=== PATIENT | female | born 1960 | race Caucasian/White ===

== ENCOUNTER → 2020-05-31 12:40 | Outpatient (REF) | payer BC, SELFPAY ==
--- NOTE | 2020-05-31 13:00 | CA_ITS ---
Transthoracic Echocardiogram Patient (Last, First, Middle): Mercy Brush, Gender: Female Date of : 1960 Age: 60 Procedure Date: 05/31/2020 Procedure Type: Transthoracic Echocardiogram Location: OP Height: 177.8 cm Weight: 79.38 kg BSA: 1.97 m2 Heart Rate: bpm BP: 138 / 86 mmHg Green End Worker: MANE Referring MD: Mehdi Hirsch MD Symptoms: [id number] paroxysmal atrial fibrillation, 110. hypertension Study Quality: Fair ECG Rhythm: Sinus Conclusions: - The left ventricular systolic function is normal. The visually estimated ejection fraction is between 60-65%. - There is mild mitral valve regurgitation. - There is mild tricuspid valve regurgitation. Findings Left Ventricle Normal left ventricular cavity size. There is normal left ventricular wall thickness. The left ventricular systolic function is normal. The visually estimated ejection fraction is between 60-65%. There is no evidence of regional wall motion abnormalities. Diastolic function is normal for age. Right Ventricle Normal right ventricular cavity size and systolic function. Atria The left atrium is normal in size. The right atrium is normal in size. Aortic Valve There is a normal trileaflet aortic valve. There is no aortic valve stenosis. There is trace (trivial) aortic valve regurgitation. Mitral Valve The mitral valve appears normal. There is mild mitral valve regurgitation. There is no mitral valve stenosis. Pulmonic Valve The pulmonic valve was not well visualized. Tricuspid Valve Normal tricuspid valve structure. There is mild tricuspid valve regurgitation. The pulmonary artery systolic pressure is normal. Great Vessels The aortic annulus, sinuses of valsalva, asc aorta, and aortic arch are normal in size. Venous The inferior vena cava is normal in size and collapses greater than 50% with inspiration. Pericardium/Pleural There is no evidence of pericardial effusion. Prior Study Comparison No significant change compared to prior study dated: 01/28/2015. Measurements 2D Linear Measurements IVSd: 0.87 0.6-0.9/0.6-1.0 cm LVIDd: 5.60 3.9-5.3/4.2-5.9 cm LVIDd Index: 2.84 2.4-3.2/2.2-3.1 cm/m2 LVIDs: 3.50 2.0-3.6 cm LVPWd: 0.93 0.7-1.1 cm Ao Root: 2.80 2.1-3.5 cm LA Diam: 3.90 2.7-3.8/3.0-4.0 cm LAIDs Index: 1.98 1.5-2.3 cm/m2 LV Mass: 238.45 67-162/88-224 g LV Mass Index: 121.04 43-95/49-115 g/m2 LVOT Diam: 2.10 3.0+(-)1.3 cm 2D Systolic Function EF 4C: 69.70 >55% EF 2C: 61.20 >55% EF BiP: 65.80 >55% Mitral Valve MV Pk E: 0.74 MV PK A: 0.39 MV Decel Time: 167.00 E/A: 1.90 E'Lateral: 10.20 E'Medial: 8.22 E/E' Med: 9.00 E/E' Lat: 7.30 PHT: 49.00 MVA PHT: 4.49 Decel Crane: 4.44 MR VTI: 2.04 MR RAD: 0.40 Aortic Valve AoV Pk Lawrence: 1.18 AoV Pk Grad: 6.00 LVOT LVOT Pk Lawrence: 0.84 LVOT Mn Lawrence: 0.53 LVOT VTI: 0.18 LVOT Pk Grad: 3.00 LVOT Mn Grad: 1.00 LVOT Diam: 2.10 LVOT Area: 3.46 Diastolic Function MV Pk E: 0.74 MV Pk A: 0.39 E/A: 1.90 E'Medial: 8.22 E/E' Med: 9.00 E' Laterial: 10.20 E/E' Lat: 7.30 Tricuspid Valve TR Pk Lawrence: 2.25 TR Pk Grad: 20.00 RA Press: 3.00 RVSP: 23.00 Great Vessels Aorta Ao Root-2D: 2.80 2.0-3.7 cm Ao Asc: 3.40 2.1-3.4 cm Ao Arch: 2.90 Updated in Other Vendor System with Status of Final Edil Bowman MD electronically signed on 06/02/2020 5:11:54 PM with status of Final
== END ==
LOC: HO.CARD 12:40
PROVIDERS: PCP Internal Medicine; Visit Provider Internal Medicine Cardiovascular Disease
DX: I48.0 Paroxysmal atrial fibrillation (principal); I10 Essential (primary) hypertension
CPT/HCPCS: 93306

== ENCOUNTER 2020-08-17 09:57 | Outpatient (REF) | payer BC, SELFPAY | END 2020-08-17 09:58 | disposition home or self-care (01) | LOC: HO.LNP 09:57 | PROVIDERS: Visit Provider Internal Medicine | DX: Z20.828 Contact with and (suspected) exposure to other viral communicable diseases (principal) | CPT/HCPCS: U0003 ==

== ENCOUNTER 2021-05-18 14:41 | Outpatient (REF) | payer BC, SELFPAY | END 2021-05-18 14:42 | disposition home or self-care (01) | LOC: HO.LNP 14:41 | PROVIDERS: Visit Provider Internal Medicine | DX: Z12.4 Encounter for screening for malignant neoplasm of cervix (principal) | CPT/HCPCS: 88142 ==

== ENCOUNTER 2021-05-19 06:34 | Outpatient (REF) | payer BC, SELFPAY ==
[2021-05-19 07:49] LABS: MANUAL DIFF FLAG NO
[2021-05-19 08:00] LABS: Basophils Percent Auto 0.4 % (0-2); Eosinophils Absolute Auto 0.1 X10*3/uL (0.0-0.4); Eosinophils Percent Auto 1.2 % (0-4); Hematocrit 39.5 % (37-47); Hemoglobin 12.9 g/dl (12.0-16.0); Imm Gran Abs Auto 0.04 X10*3/uL (0.00-0.03); Imm Gran Pct Auto 0.5 % (0.0-0.4); Lymphocytes Absolute Auto 2.3 X10*3/uL (1.2-4.9); Mean Corpuscular HGB Conc 32.7 g/dl (31.0-35.0); Mean Corpuscular Hemoglobin 31.1 pg (27.0-33.0); Mean Corpuscular Volume 95.2 fL (80-98); Mean Platelet Volume 9.7 fL (9.4-12.3); Monocytes Absolute Auto 0.7 X10*3/uL (0.1-1.2); Monocytes Percent Auto 8.4 % (2-11); Neutrophils Absolute Auto 4.7 X10*3/uL (2.0-8.3); Neutrophils Percent Auto 60.5 % (45-73); Platelet Count 260 X10*3/uL (160-400); Red Blood Count 4.15 X10*6/uL (4.20-5.50); Red Cell Distribution Width 13.1 % (11.0-16.0); White Blood Count 7.8 X10*3/uL (4.8-10.8)
[2021-05-19 08:17] LABS: Alanine Aminotransferase 22 U/L (0-31); Albumin Level 4.3 g/dL (3.5-5.0); Alkaline Phosphatase 73 U/L (39-117); Anion Gap 13 (12-20); Aspartate Amino Transferase 26 U/L (5-31); Bilirubin Total 0.8 mg/dL (0.0-1.0); Blood Urea Nitrogen 20 mg/dL (9-16); Calcium 9.6 mg/dL (8.4-10.2); Carbon Dioxide 26 mmol/L (22-29); Chloride 102 mmol/L (96-108); Cholesterol 223 mg/dL; Estimated Glomerular Filt Rate 58; Glucose Fasting 81 mg/dL (60-99); HDL Cholesterol 67 mg/dL; LDL Cholesterol Calculated 136 mg/dl; Potassium 4.3 mmol/L (3.3-5.1); Sodium 137 mmol/L (135-145); Total Protein 7.5 g/dL (6.5-8.0); Triglycerides 102 mg/dL
[2021-05-19 08:41] LABS: Vitamin D 25-OH Total 55.4 ng/mL (>30)
[2021-05-19 09:04] LABS: Appearance Urine CLEAR; Color Urine YELLOW; Glucose Urine UA NEG (NEG); Leukocyte Esterase Urine 3+ (NEG); Nitrite Urine NEG (NEG); Specific Gravity - Urine <= 1.005 (1.005-1.025); Urine Blood 1+ (NEG); Urine Ketones NEG (NEG); Urine Protein NEG (NEG-TRACE)
[2021-05-19 09:21] LABS: Squamous Epithelial Cell Urine 1+ /LPF
[2021-05-19 09:22] LABS: Bacteria Urine 1+ /LPF
== END 2021-05-19 06:35 | disposition home or self-care (01) ==
LOC: HO.LAB 06:34
PROVIDERS: PCP Internal Medicine; Visit Provider Internal Medicine
DX: Z00.00 Encounter for general adult medical examination without abnormal findings (principal); I10 Essential (primary) hypertension; E78.00 Pure hypercholesterolemia, unspecified; Z78.0 Asymptomatic menopausal state
CPT/HCPCS: 36415; 80053; 80061; 81001; 81003; 82306; 85025

== ENCOUNTER 2021-06-02 07:57 | Outpatient (REF) | payer BC, SELFPAY ==
--- NOTE | ~2021-06-02 | MM_ITS ---
EXAMINATION: MM SCREENING DIGITAL BREAST TOMOSYNTHESIS, BILATERAL CLINICAL INFORMATION: Screening. Asymptomatic. The lifetime risk of breast cancer based on the Tyrer-Cuzick Model is 9%. COMPARISON: Mammography: 03/18/2020, 12/06/2018, 12/04/2017, 11/24/2016 TECHNIQUE: Digital breast tomosynthesis is performed in both the craniocaudal and mediolateral oblique views along with computer-aided detection (CAD). Synthesized 2D images are generated from the tomosynthesis. FINDINGS: There are scattered areas of fibroglandular density (ACR BI-RADS breast composition Category b). Breast tissue composition borders on heterogeneously dense. Parenchymal pattern is similar to prior studies. No developing density or interval mass or architectural abnormality. Again, there is biopsy clip marker right breast upper outer quadrant. There are no abnormal calcifications. The axilla and skin contours unremarkable. MM/MM tomosynthesis screening BI IMPRESSION: No significant changes from prior exams. ASSESSMENT: BI-RADS 1: Negative RECOMMENDATION: Routine annual mammography screening. This patient's information was entered into a reminder system with a target due date for their next mammogram.
== END 2021-06-02 07:58 | disposition home or self-care (01) ==
LOC: HO.MAMMO 07:57
PROVIDERS: Visit Provider Internal Medicine
DX: Z12.31 Encounter for screening mammogram for malignant neoplasm of breast (principal)
CPT/HCPCS: 77063; 77067

== ENCOUNTER 2021-07-27 00:49 | Inpatient (IN) | payer BC, SELFPAY ==
[2021-07-27] VITALS (15 sets, daily range): BP systolic 106–147; BP diastolic 61–91; PULSE 53–150; RESP 16–18; TEMP 36.6–36.7; O2SAT 96–100; BMI 25.8
--- NOTE | 2021-07-27 | ECG_ITS ---
Test Reason : palpitations Blood Pressure : / mmHG Vent. Rate : 151 BPM Atrial Rate : 000 BPM P-R Int : 000 ms QRS Dur : 090 ms QT Int : 308 ms P-R-T Axes : 000 038 192 degrees QTc Int : 488 ms Atrial fibrillation with rapid ventricular response with premature ventricular or aberrantly conducted complexes ST depression, which could be rate related, possible ischemia vs non-specific Abnormal ECG When compared with ECG of 26-JAN-2015 04:47, Rhythm change Referred By: Stacy Gold Electronically Signed By:KENTON TORRES
--- NOTE | ~2021-07-27 | XR_ITS ---
EXAMINATION: XR CHEST CLINICAL INFORMATION: Palpitations. COMPARISON: Report chest radiograph 01/26/2015. TECHNIQUE: Frontal view of the chest was obtained. FINDINGS: Multiple external artifacts overlie the thorax. The cardiomediastinal silhouette is normal in appearance. No effusions or pneumothoraces visualized. Normal pattern of pulmonary vasculature noted. No focal pulmonary consolidation. Chronic posttraumatic appearing deformity of the left clavicle is visualized. XR/XR chest 1V IMPRESSION: -No acute cardiopulmonary abnormalities. Lungs clear.
--- NOTE | 2021-07-27 01:08 | ED_ITS ---
HPI - Arrhythmia/Palpitations General Chief Complaint: Arrhythmia/Palpitations Stated Complaint: high bp? Time Seen by Provider: 07/27/21 00:58 Source: patient Mode of arrival: ambulatory Limitations: no limitations History of Present Illness MD complaint: rapid heart beat, heart racing and skipped beats Onset (ago): hour(s) (1) Duration: constant Severity: mild Context: occurred during rest Arrhythmia history: atrial fibrillation Associated symptoms: denies other symptoms Related Data Home Medications Medication Instructions Recorded Confirmed atorvastatin 20 mg tablet 1 tab PO DAILY 07/27/21 07/27/21 metoprolol succinate 50 mg 1 tab PO DAILY 07/27/21 07/27/21 tablet,extended release 24 hr Allergies Allergy/AdvReac Type Severity Reaction Status Date / Time No Known Allergies Allergy Verified 07/27/21 00:57 Review of Systems 2 Review of Systems: Constitutional : No Weight loss, No Fever, No Chills, No Fatigue, No Malaise ENT/Mouth : No sore throat, No Rhinorrhea Eyes: No Eye Pain, No Swelling, No Redness Cardiovascular : No Chest Pain, No SOB, No Dyspnea on Exertion, No Orthopnea, No Edema, pos Palpitations Respiratory : No Cough, No Sputum, No Wheezing Gastrointestinal : No Nausea, No Vomiting, No Diarrhea, No Constipation, No abdominal Pain, No Hematochezia, No Melena Genitourinary : No Dysuria, No Urinary Frequency, No Hematuria, Musculoskeletal : No joint pain, No Myalgias, No Joint Swelling Skin : No Skin Lesions, No rash Neuro : No Weakness, No Numbness, No Dizziness, No Headache Psych : No Anxiety/Panic, No Depression Heme/Lymph: No Bruising, No Bleeding,No Lymphadenopathy Endocrine : No Polyuria, No Polydipsia All other systems reviewed and are negative [facility] Past Medical History Medical History Afib HTN (hypertension) Social History Social History (Updated 07/27/21 @ 01:30 by Stacy Gold DO) Patient Tobacco Use Status: Never used Tobacco Advance Directives: No Advance Directives Information Provided: Yes Patient : No Physical Exam Vital Signs: Vital Signs: Last Vital Signs Temp 97.9 F 07/27/21 00:58 Pulse 88 07/27/21 05:00 Resp 16 07/27/21 01:08 BP 111/66 07/27/21 03:14 Pulse Ox 100 07/27/21 01:08 BMI result Body Mass Index 25.8 Appearance: Alert. Oriented X3. No acute distress. Eyes: Pupils equal, round and reactive to light. ENT: Pharynx normal. Neck: Normal inspection. Neck supple. CVS: tachycardic and irregular heart rate and rhythm. Pulses normal. Respiratory: No respiratory distress. Breath sounds normal. Abdomen: Soft and nontender. Skin: Skin warm and dry. Normal skin color. Normal skin turgor. Extremities: No lower extremity edema. No calf ttp Neuro: Oriented X 3. No motor deficit. No sensory deficit. Course Course Course Narrative: repeat 10mg dilt bolus will start on dilt gtt to attempt to convert back to NSR no conversion yet on gtt will admit - spoke to hospitalist 335am MDM - Arrhythmia/Palpitations MDM Narrative Medical decision making narrative: 61 yo female with hx of HTN, PAF not usually in afib onset about 1 hour ago no associated CP/SOB no signs of DVT other than rapid heart beat has no complaints at this time labs, IV dilt ordered, dispo per results and ability to get her into NSR. Lab Data Result diagrams: 07/27/21 01:14 07/27/21 01:14 Labs: Lab Results 07/27/21 07/27/21 07/27/21 Range/Units 01:14 01:14 01:14 WBC 7.8 (4.8-10.8) X10*3/uL RBC 4.15 L (4.20-5.50) X10*6/uL Hgb 13.1 (12.0-16.0) g/dl Hct 39.1 (37.0-47.0) % MCV 94.2 (80.0-98.0) fL MCH 31.6 (27.0-33.0) pg MCHC 33.5 (31.0-35.0) g/dl RDW 13.2 (11.0-16.0) % Plt Count 254 (160-400) X10*3/uL MPV 9.1 L (9.4-12.3) fL Immature Gran % (Auto) 0.3 (0.0-0.4) % Neut % (Auto) 50.5 (45-73) % Lymph % (Auto) 38.5 (20-40) % [place] % (Auto) 8.8 (2-11) % Eos % (Auto) 1.5 (0-4) % Baso % (Auto) 0.4 (0-2) % Lymph # (Auto) 3.0 (1.2-4.9) X10*3/uL [place] # (Auto) 0.7 (0.1-1.2) X10*3/uL Eos # (Auto) 0.1 (0.0-0.4) X10*3/uL Baso # (Auto) 0.0 (0.0-0.2) X10*3/uL Abs Immat Gran (auto) 0.02 (0.00-0.03) X10*3/uL Absolute Neuts (auto) 4.0 (2.0-8.3) x10*3/uL Absolute Nucleated RBC 0.000 (0.0-0.012) X10*3/uL Nucleated RBC % (auto) 0.0 (0.0-0.2) /100WBC PT 10.6 (9.9-13.0) SEC INR 0.9 (0.9-1.1) APTT 36.3 (24.1-38.0) SEC Sodium 142 (135-145) mmol/L Potassium 3.5 (3.3-5.1) mmol/L Chloride 108 (96-108) mmol/L Carbon Dioxide 21 L (22-29) mmol/L Anion Gap 17 (12-20) BUN 20 H (9-16) mg/dL Creatinine 0.95 (0.5-1.4) mg/dL Estim Creat Clear Calc 66.4 Estimated GFR 60 Random Glucose 103 (60-115) mg/dL Calcium 9.6 (8.4-10.2) mg/dL Magnesium 2.2 (1.6-2.6) mg/dL Total Bilirubin 0.3 (0.0-1.0) mg/dL Direct Bilirubin < 0.2 (0.0-0.5) mg/dL AST 29 (5-31) U/L ALT 32 H (0-31) U/L Alkaline Phosphatase 103 D (39-117) U/L Troponin I High Sens (<3.5-17.0) ng/L B-Natriuretic Peptide (<100) pg/mL Total Protein 7.5 (6.5-8.0) g/dL Albumin 4.2 (3.5-5.0) g/dL TSH 1.40 (0.32-4.0) uIU/mL COVID-19 ([facility]) (Negative) COVID-19 Clin Com 07/27/21 07/27/21 Range/Units 01:14 03:39 WBC (4.8-10.8) X10*3/uL RBC (4.20-5.50) X10*6/uL Hgb (12.0-16.0) g/dl Hct (37.0-47.0) % MCV (80.0-98.0) fL MCH (27.0-33.0) pg MCHC (31.0-35.0) g/dl RDW (11.0-16.0) % Plt Count (160-400) X10*3/uL MPV (9.4-12.3) fL Immature Gran % (Auto) (0.0-0.4) % Neut % (Auto) (45-73) % Lymph % (Auto) (20-40) % [place] % (Auto) (2-11) % Eos % (Auto) (0-4) % Baso % (Auto) (0-2) % Lymph # (Auto) (1.2-4.9) X10*3/uL [place] # (Auto) (0.1-1.2) X10*3/uL Eos # (Auto) (0.0-0.4) X10*3/uL Baso # (Auto) (0.0-0.2) X10*3/uL Abs Immat Gran (auto) (0.00-0.03) X10*3/uL Absolute Neuts (auto) (2.0-8.3) x10*3/uL Absolute Nucleated RBC (0.0-0.012) X10*3/uL Nucleated RBC % (auto) (0.0-0.2) /100WBC PT (9.9-13.0) SEC INR (0.9-1.1) APTT (24.1-38.0) SEC Sodium (135-145) mmol/L Potassium (3.3-5.1) mmol/L Chloride (96-108) mmol/L Carbon Dioxide (22-29) mmol/L Anion Gap (12-20) BUN (9-16) mg/dL Creatinine (0.5-1.4) mg/dL Estim Creat Clear Calc Estimated GFR Random Glucose (60-115) mg/dL Calcium (8.4-10.2) mg/dL Magnesium (1.6-2.6) mg/dL Total Bilirubin (0.0-1.0) mg/dL Direct Bilirubin (0.0-0.5) mg/dL AST (5-31) U/L ALT (0-31) U/L Alkaline Phosphatase (39-117) U/L Troponin I High Sens < 3.5 (<3.5-17.0) ng/L B-Natriuretic Peptide 62 (<100) pg/mL Total Protein (6.5-8.0) g/dL Albumin (3.5-5.0) g/dL TSH (0.32-4.0) uIU/mL COVID-19 ([facility]) Negative (Negative) COVID-19 Clin Com See Note ECG Data Attestation: I personally reviewed and interpreted this ECG as follows: ECG interpretation date: 07/27/21 ECG interpretation time: 01:33 Interpretation: Rate: 150 Rhythm: afib with RVR [place]: normal Normal QRS complex. ST T wave : nonspecific no LUCAS qTC: normal prior studies: changed from prior The study has been interpreted contemporaneously by me. . Critical Care Time Critical Care Time Critical Care Time: Yes Total Critical Care Time: 60 Attestation: repeat dilt bolus, dilt gtt I attest to this time spent taking care of the patient Discharge Plan Discharge Clinical Impression: Atrial fibrillation with rapid ventricular response Patient Disposition: Admitted As Inpatient
[2021-07-27] MEDS: dilTIAZem HCL 50 MG/10 ML VIAL 10 MG IVPUSH ×2 (01:16→01:27)
[2021-07-27] MEDS: 0.9 % Sodium Chloride 500 ML IV ×2 (01:17→03:47)
[2021-07-27 01:20] LABS: MANUAL DIFF FLAG NO
[2021-07-27 01:22] LABS: Basophils Percent Auto 0.4 % (0-2); Eosinophils Absolute Auto 0.1 X10*3/uL (0.0-0.4); Eosinophils Percent Auto 1.5 % (0-4); Hematocrit 39.1 % (37.0-47.0); Hemoglobin 13.1 g/dl (12.0-16.0); Imm Gran Abs Auto 0.02 X10*3/uL (0.00-0.03); Imm Gran Pct Auto 0.3 % (0.0-0.4); Lymphocytes Percent Auto 38.5 % (20-40); Mean Corpuscular HGB Conc 33.5 g/dl (31.0-35.0); Mean Corpuscular Hemoglobin 31.6 pg (27.0-33.0); Mean Corpuscular Volume 94.2 fL (80.0-98.0); Mean Platelet Volume 9.1 fL (9.4-12.3); Monocytes Absolute Auto 0.7 X10*3/uL (0.1-1.2); Monocytes Percent Auto 8.8 % (2-11); Neutrophils Percent Auto 50.5 % (45-73); Platelet Count 254 X10*3/uL (160-400); Red Blood Count 4.15 X10*6/uL (4.20-5.50); Red Cell Distribution Width 13.2 % (11.0-16.0); White Blood Count 7.8 X10*3/uL (4.8-10.8)
[2021-07-27 01:30] LABS: INTERNATIONAL NORM RATIO 0.9 (0.9-1.1); Prothrombin Time 10.6 SEC (9.9-13.0)
[2021-07-27 01:32] LABS: Partial Thromboplastin Time 36.3 SEC (24.1-38.0)
[2021-07-27 01:40] LABS: Alanine Aminotransferase 32 U/L (0-31); Albumin Level 4.2 g/dL (3.5-5.0); Alkaline Phosphatase 103 U/L (39-117); Anion Gap 17 (12-20); Aspartate Amino Transferase 29 U/L (5-31); Bilirubin Direct < 0.2 mg/dL (0.0-0.5); Bilirubin Total 0.3 mg/dL (0.0-1.0); Blood Urea Nitrogen 20 mg/dL (9-16); Calcium 9.6 mg/dL (8.4-10.2); Carbon Dioxide 21 mmol/L (22-29); Chloride 108 mmol/L (96-108); Creatinine Clr Calc Pharmacy 66.4; Estimated Glomerular Filt Rate 60; Glucose Random 103 mg/dL (60-115); Magnesium 2.2 mg/dL (1.6-2.6); Potassium 3.5 mmol/L (3.3-5.1); Sodium 142 mmol/L (135-145); Total Protein 7.5 g/dL (6.5-8.0)
[2021-07-27 01:44] LABS: B Type Natriuretic Peptide 62 pg/mL (<100); Troponin-I High Sensitivity < 3.5 ng/L (<3.5-17.0)
[2021-07-27] MEDS: dilTIAZem HCL 125 MG in 0.9 % Sodium Chloride 100 ML 10 MG IVCONT (02:12)
[2021-07-27 03:59] LABS: COVID-19 Test Negative (Negative); IDNOW Serial# 9DD0AD1C
--- NOTE | 2021-07-27 05:52 | PM.IMHP ---
History of Present Illness Date of Service: 07/27/21 Chief Complaint: palpitations This is a 61-year-old female with past medical history of AFib and hypertension presents to the hospital with complaints of palpitations. Patient reports that she was sleeping when she started having palpitations, she denies having shortness of breath, no chest pain, no headache change in vision or dizziness, she has not had any abdominal pain nausea or vomiting, no diarrhea constipation, no urinary symptoms and no lower extremity edema. She has no fever or chills. She has been eating and drinking well and compliant with her medications. on arrival to the ED patient's heart rate was found to be 139, EKG showed AFib with RVR, patient was given multiple doses of IV diltiazem pushes with heart rate remaining in the 130s to 150s, patient was started on diltiazem drip and will be admitted for further management. Labs reviewed show no significant abnormality, troponin negative, BNP negative, COVID-19 negative, chest x-ray shows no acute pulmonary abnormality Review of Systems Review of Systems: Yes all other systems are reviewed and are negative [facility] Medical History Afib HTN (hypertension) Family History (Updated 07/27/21 @ 06:01 by Mino Jean MD) Mother Heart disease Surgical History (Updated 07/27/21 @ 06:01 by Mino Jean MD) No pertinent past surgical history Social History Patient Tobacco Use Status: Never used Tobacco Advance Directives: No Advance Directives Information Provided: Yes Patient : No Meds Allergies Allergy/AdvReac Type Severity Reaction Status Date / Time No Known Allergies Allergy Verified 07/27/21 00:57 Active Medications: Current Medications Diltiazem HCl 125 mg/ Sodium (Chloride) 125 mls @ 0 mls/hr IVCONT .Q0M [facility]; Protocol Last Titration: 07/27/21 05:00 Dose: 10 mg/hr, 10 mls/hr Documented by: Home Medications Medication Instructions Recorded Confirmed Last Taken Type atorvastatin 20 mg tablet 1 tab PO DAILY 07/27/21 07/27/21 Unknown History metoprolol succinate 50 mg 1 tab PO DAILY 07/27/21 07/27/21 Unknown History tablet,extended release 24 hr Physical Exam Vital Signs and Narrative: Vital Signs: Last Vital Signs Temp 97.9 F 07/27/21 00:58 Pulse 88 07/27/21 05:00 Resp 16 07/27/21 01:08 BP 111/66 07/27/21 03:14 Pulse Ox 100 07/27/21 01:08 BMI result Body Mass Index 25.8 Const: General: cooperative and no acute distress Orientation/consciousness: patient oriented x3 Eyes: General: appearance normal, both eyes and all related structures Pupils: Equal, round and reactive pupils present Resp: Effort & Inspection: normal respiratory effort Auscultation: clear to auscultation bilaterally Cardio: Other: irregular rhythm Rate: regular rate GI: Palpation (GI): Soft to palpation Auscultation: normal bowel sounds Skin: General skin exam: no rashes or lesions noted Neuro: General: patient oriented x3 Cranial nerves: Yes Equal, round and reactive pupils present Cognition (Neuro): normal cognition Extrem: General: Yes normal to inspection and Yes no pedal edema Results Labs CBC and Chem 7: 07/27/21 01:14 07/27/21 01:14 Labs: Laboratory Results - last 24 hr 07/27/21 07/27/21 07/27/21 01:14 01:14 01:14 MCV 94.2 MCH 31.6 MCHC 33.5 RDW 13.2 Plt Count 254 MPV 9.1 L Immature Gran % (Auto) 0.3 Neut % (Auto) 50.5 Lymph % (Auto) 38.5 [place] % (Auto) 8.8 Eos % (Auto) 1.5 Baso % (Auto) 0.4 Lymph # (Auto) 3.0 [place] # (Auto) 0.7 Eos # (Auto) 0.1 Baso # (Auto) 0.0 Abs Immat Gran (auto) 0.02 Absolute Neuts (auto) 4.0 Absolute Nucleated RBC 0.000 Nucleated RBC % (auto) 0.0 PT 10.6 INR 0.9 APTT 36.3 Anion Gap 17 Estim Creat Clear Calc 66.4 Estimated GFR 60 Random Glucose 103 Calcium 9.6 Magnesium 2.2 Total Bilirubin 0.3 Direct Bilirubin < 0.2 AST 29 ALT 32 H Alkaline Phosphatase 103 D Troponin I High Sens B-Natriuretic Peptide Total Protein 7.5 Albumin 4.2 TSH 1.40 COVID-19 ([facility]) COVID-19 Clin Com 07/27/21 07/27/21 01:14 03:39 MCV MCH MCHC RDW Plt Count MPV Immature Gran % (Auto) Neut % (Auto) Lymph % (Auto) [place] % (Auto) Eos % (Auto) Baso % (Auto) Lymph # (Auto) [place] # (Auto) Eos # (Auto) Baso # (Auto) Abs Immat Gran (auto) Absolute Neuts (auto) Absolute Nucleated RBC Nucleated RBC % (auto) PT INR APTT Anion Gap Estim Creat Clear Calc Estimated GFR Random Glucose Calcium Magnesium Total Bilirubin Direct Bilirubin AST ALT Alkaline Phosphatase Troponin I High Sens < 3.5 B-Natriuretic Peptide 62 Total Protein Albumin TSH COVID-19 ([facility]) Negative COVID-19 Clin Com See Note Imaging Radiologist's Impressions: Impressions Chest X-Ray 07/27/21 01:11 IMPRESSION: -No acute cardiopulmonary abnormalities. Lungs clear. 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
--- NOTE | 2021-07-27 06:08 | ECG_ITS ---
Test Reason : BRADYCARDIA Blood Pressure : / mmHG Vent. Rate : 050 BPM Atrial Rate : 050 BPM P-R Int : 142 ms QRS Dur : 098 ms QT Int : 454 ms P-R-T Axes : 030 020 023 degrees QTc Int : 413 ms Sinus bradycardia Otherwise normal ECG When compared with ECG of 27-JUL-2021 00:52, Sinus rhythm has replaced Atrial fibrillation Vent. rate has decreased BY [address]-T changes resolved. Referred By: Stacy Gold Electronically Signed By:KENTON TORRES
--- NOTE | 2021-07-27 06:14 | PC.NURSE ---
Pt HR noted to be in 40s on tele monitor. Pt asymptomatic, dilt gtt paused per MD Gold. Repeat EKG obtained. 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
--- NOTE | 2021-07-27 07:43 | PHA.MEDREC ---
Pharmacy Consult ? Medication Reconciliation Pharmacy has reviewed the medication reconciliation completed by Alicia. Patient reports she takes a baby aspirin and piroxicam PRN. Nella Winston, EzekielD
--- NOTE | 2021-07-27 09:16 | PC.NURSE ---
late entry for 7am. pt states she feels fine. SB on monitor. denies palpitations, dizziness, headache. wants to be discharged and f/u with cardio on her own. doesn't want to be started on blood thinners. 9:15 declines lovenox, and atorvistatin (vaibhav says to take at night per patient). resting quietly and awaits hospitalist. skin pwd. SB on monitor.
--- NOTE | 2021-07-27 09:43 | PC.NURSE ---
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
--- NOTE | 2021-07-27 09:59 | PM.DS ---
DS: Providers Provider Date of Service: 07/27/21 Date of admission: 07/27/21 05:51 Primary care physician: Unknown Physician Consults: 07/27/21 07:43 Consult to Cardiology Routine Consulting Provider: Edil Bowman Reason for consultation: a fib w rvr Has provider been notified: No DS: Diagnosis Discharge Diagnosis (1) Atrial fibrillation with rapid ventricular response: Status: Acute DS: Summary Hospital Course Hospital Course: 61-year-old female with past medical history of AFib and hypertension presents to the hospital with complaints of palpitations.? Patient reports that she was sleeping when she started having palpitations, she denies having shortness of breath, no chest pain, no headache change in vision or dizziness, she has not had any abdominal pain nausea or vomiting, no diarrhea constipation, no urinary symptoms and no lower extremity edema.? She has no fever or chills.? She has been eating and drinking well and compliant with her medications.? ?on arrival to the ED patient's heart rate was found to be 139, EKG showed AFib with RVR, patient was given multiple doses of IV? diltiazem pushes with heart rate remaining in the 130s to 150s, patient was started on diltiazem drip and will be admitted for further management. ? Labs reviewed show no significant abnormality, troponin negative, BNP negative, COVID-19 negative, chest x-ray shows? no acute pulmonary abnormality. Hospital course: patient came with afib with rvr , has history of AFib- received IV cardizem for heart rate control and seems to be improved.now in nsr. seen by Cardiology: Recommended to adjust her home Toprol dose Which is adjusted. Patient will go home with Toprol. Currently patient is not interested in anticoagulation, she will talk to her detention deputy outpatient. Above management discussed with the patient in detail length she understand and in agreement with the above plan, time spent 50 minutes and 50% time spent on counseling. Significant findings: As above. Procedures performed: None. Treatment and response: As above. Complications: None. Time Spent with Patient Time attestation: Total time spent providing and/or coordinating discharge services: Discharge coordination time: Greater than 30 minutes Quality: Stroke Does the patient have a stroke diagnosis?: No Physical Exam Vital Signs: Vital Signs: Last Vital Signs Temp 98.1 F 07/27/21 09:16 Pulse 57 07/27/21 09:16 Resp 18 07/27/21 09:16 BP 118/68 07/27/21 09:16 Pulse Ox 96 07/27/21 09:16 BMI result Body Mass Index 25.8 Appearance: Alert.? Oriented X3.? not in distress.? Eyes: Pupils equal, round and reactive to light.? Sclera nonicteric.? ENT: Pharynx normal.? Moist mucous membranes. cvs: rrr, [id number] , no murmur res: clear to auscultation ,no rhonchii or wheezing abd: no rebound or guarding ,nt, bs present. ext pulses present , no cyanosis ,Gait well balanced well coordinated. neuro: axo3 , nonfocal. Lactic DS: Data Data Completed and Pending Labs on day of discharge: Laboratory Results - last 24 hr 07/27/21 07/27/21 07/27/21 01:14 01:14 01:14 WBC 7.8 RBC 4.15 L Hgb 13.1 Hct 39.1 MCV 94.2 MCH 31.6 MCHC 33.5 RDW 13.2 Plt Count 254 MPV 9.1 L Immature Gran % (Auto) 0.3 Neut % (Auto) 50.5 Lymph % (Auto) 38.5 [place] % (Auto) 8.8 Eos % (Auto) 1.5 Baso % (Auto) 0.4 Lymph # (Auto) 3.0 [place] # (Auto) 0.7 Eos # (Auto) 0.1 Baso # (Auto) 0.0 Abs Immat Gran (auto) 0.02 Absolute Neuts (auto) 4.0 Absolute Nucleated RBC 0.000 Nucleated RBC % (auto) 0.0 PT 10.6 INR 0.9 APTT 36.3 Sodium 142 Potassium 3.5 Chloride 108 Carbon Dioxide 21 L Anion Gap 17 BUN 20 H Creatinine 0.95 Estim Creat Clear Calc 66.4 Estimated GFR 60 Random Glucose 103 Calcium 9.6 Magnesium 2.2 Total Bilirubin 0.3 Direct Bilirubin < 0.2 AST 29 ALT 32 H Alkaline Phosphatase 103 D Troponin I High Sens B-Natriuretic Peptide Total Protein 7.5 Albumin 4.2 TSH 1.40 COVID-19 ([facility]) COVID-19 Clin Com 07/27/21 07/27/21 01:14 03:39 WBC RBC Hgb Hct MCV MCH MCHC RDW Plt Count MPV Immature Gran % (Auto) Neut % (Auto) Lymph % (Auto) [place] % (Auto) Eos % (Auto) Baso % (Auto) Lymph # (Auto) [place] # (Auto) Eos # (Auto) Baso # (Auto) Abs Immat Gran (auto) Absolute Neuts (auto) Absolute Nucleated RBC Nucleated RBC % (auto) PT INR APTT Sodium Potassium Chloride Carbon Dioxide Anion Gap BUN Creatinine Estim Creat Clear Calc Estimated GFR Random Glucose Calcium Magnesium Total Bilirubin Direct Bilirubin AST ALT Alkaline Phosphatase Troponin I High Sens < 3.5 B-Natriuretic Peptide 62 Total Protein Albumin TSH COVID-19 ([facility]) Negative COVID-19 Clin Com See Note Additional Comments Additional comments: cxr: IMPRESSION: -No acute cardiopulmonary abnormalities. Lungs clear. Discharge Plan Discharge Patient Disposition: Home, Self-Care Discharge Diagnosis: htn , afib with rvr Referrals: Physician,Unknown J [Primary Care Provider] - 1 Week Discharge Medications: New metoprolol succinate [Toprol XL] 25 mg tablet extended release 24 hr 25 mg PO BEDTIME Qty: 30 RF: 0 Continued atorvastatin 20 mg tablet 1 tab PO DAILY RF: 0 metoprolol succinate 50 mg tablet extended release 24 hr 1 tab PO DAILY RF: 0 aspirin 81 mg Tablet,Chewable 81 mg PO DAILY RF: 0 piroxicam 20 mg capsule 1 cap PO DAILY PRN (Reason: arthritis pain) RF: 0 Discharge Orders: Discharge Order (Routine); Ordered 07/27/21 Ordered By: Juno Miranda Diet: advance to usual diet, low fat, low cholesterol and low salt diet Activity on Discharge: As tolerated Care Plan Goals: patient came with elevated and irregular heart rate, has history of AFib- received IV medication for heart rate control and seems to be improved. seen by Cardiology: Recommended to adjust her home Toprol dose Which is adjusted. Patient will go home with Toprol. Currently patient is not interested in anticoagulation, she will talk to her detention deputy outpatient. Health Concerns: As above. Plan of Treatment: As above. Assessment: As above. Patient Instructions: A-fib (Atrial Fibrillation) (ED) Discharge Date/Time: 07/27/21 11:01
--- NOTE | 2021-07-27 10:05 | P.CONCA_ITS ---
History of Present Illness History of Present Illness Date of Service: 07/27/21 Chief complaint: a fib Narrative: This is a cardiology consultation regarding atrial fibrillation. Patient of Dr. Hirsch and last seen in April of 2020. She has paroxysmal atrial fibrillation but the last episode was almost 6 years ago. Last night she went to sleep and then woke up around midnight or so with palpitations and then presented to the ER when directed to have atrial fibrillation. Then put on Cardizem drip and she converted within a few hours back to sinus rhythm. Hence the total duration was probably 6-8 hours or so. Now she is back to her normal self. She states that she is under lot of stress at work and that might have brought on the episode. Review of Systems Review of Systems: Yes all other systems are reviewed and are negative Cardiovascular: Cardiovascular: Reports as per HPI, Reports no additional cardiovascular complaints, Denies acrocyanosis, Denies cool extremities, Denies painful fingertips, Denies chest pain, Denies chest pain at rest, Denies diaphoresis, Denies syncope, Denies irregular heart rhythm, Denies claudication, Denies leg edema, Denies lightheadedness, Denies palpitations and Denies dyspnea Respiratory: Respiratory: Denies dyspnea Neurologic: Denies syncope Endocrine: Endocrine: Denies palpitations PMFSH Past Medical History Medical History Afib HTN (hypertension) Family History Family History (Updated 07/27/21 @ 06:01 by Mino Jean MD) Mother Heart disease Surgical History Surgical History (Updated 07/27/21 @ 06:01 by Mino Jean MD) No pertinent past surgical history Social History Social History Alcohol intake: current Alcohol intake frequency: a few times a week Patient Tobacco Use Status: Never used Tobacco Use of substances other than those prescribed or required for medical reasons: No Advance Directives: No Advance Directives Information Provided: Yes Patient : No Meds Allergies Allergy/AdvReac Type Severity Reaction Status Date / Time No Known Allergies Allergy Verified 07/27/21 00:57 Active Medications: Current Medications Acetaminophen (Acetaminophen 325 Mg Tablet) 650 mg PO Q6H PRN PRN Reason: Pain, Mild (Pain Scale 1-3) Atorvastatin Calcium (Atorvastatin Calcium 20 Mg Tablet) 20 mg PO DAILY [facility] Last Admin: 07/27/21 09:15 Dose: Not Given Documented by: Docusate Sodium (Docusate Sodium 100 Mg Capsule) 100 mg PO DAILY PRN PRN Reason: Constipation Enoxaparin Sodium (Enoxaparin Sodium 40 Mg/0.4 Ml Syringe) 40 mg SUBCUT Q24H [facility] Last Admin: 07/27/21 09:14 Dose: Not Given Documented by: Diltiazem HCl 125 mg/ Sodium (Chloride) 125 mls @ 0 mls/hr IVCONT .Q0M [facility]; Protocol Last Titration: 07/27/21 06:10 Dose: 0 mg/hr, 0 mls/hr Documented by: Metoprolol Succinate (Metoprolol Succinate Er 50 Mg Tab.Er.24h) 50 mg PO DAILY [facility]; Protocol Last Admin: 07/27/21 09:15 Dose: Not Given Documented by: Ondansetron HCl (Ondansetron Hcl 4 Mg/2 Ml Vial) 4 mg IVPUSH Q8H PRN PRN Reason: Nausea and Vomiting Pharmacy Consult (Consult Rx Perform Med Rec) 1 each MISCELLANE ONCE PRN PRN Reason: Consult order Sodium Chloride (0.9 % Sodium Chloride Flush 3 Ml Syringe) 3 ml IVFLUSH QSHIFT [facility] Last Admin: 07/27/21 09:14 Dose: Not Given Documented by: Home Medications Medication Instructions Recorded Confirmed Last Taken Type aspirin 81 mg chewable tablet 81 mg PO DAILY 07/27/21 07/27/21 07/26/21 History atorvastatin 20 mg tablet 1 tab PO DAILY 07/27/21 07/27/21 07/26/21 History metoprolol succinate 50 mg 1 tab PO DAILY 07/27/21 07/27/21 07/26/21 History tablet,extended release 24 hr piroxicam 20 mg capsule 1 cap PO DAILY PRN 07/27/21 07/27/21 Unknown History Physical Exam Vital Signs: Vital Signs: Last Vital Signs Temp 98.1 F 07/27/21 09:16 Pulse 57 07/27/21 09:16 Resp 18 07/27/21 09:16 BP 118/68 07/27/21 09:16 Pulse Ox 96 07/27/21 09:16 BMI result Body Mass Index 25.8 Const: General: cooperative and no acute distress HENMT: Other: Unremarkable Neck: Neck: Yes normal visual inspection Chest: Chest palpation & inspection: normal inspection of the chest Resp: Auscultation: clear to auscultation bilaterally, no crackles and no wheezes Cardio: Jugular venous distension: no JVD Palpation: normal PMI Heart sounds: S1 normal heart sound present, S2 normal heart sound present, no gallops, no murmurs and no rubs GI: Palpation (GI): Soft to palpation Back/Spine/Pelvis: Other: unremarkable Skin: General skin exam: no rashes or lesions noted Neuro: Cranial nerves: Yes Other cranial nerve findings present Extrem: General: Yes no clubbing, cyanosis or edema Psych: Mental Status: other Objective Labs and Meds Result diagrams: 07/27/21 01:14 07/27/21 01:14 Lab results: Laboratory Results - last 24 hr 07/27/21 07/27/21 07/27/21 01:14 01:14 01:14 WBC 7.8 RBC 4.15 L Hgb 13.1 Hct 39.1 MCV 94.2 MCH 31.6 MCHC 33.5 RDW 13.2 Plt Count 254 MPV 9.1 L Immature Gran % (Auto) 0.3 Neut % (Auto) 50.5 Lymph % (Auto) 38.5 [place] % (Auto) 8.8 Eos % (Auto) 1.5 Baso % (Auto) 0.4 Lymph # (Auto) 3.0 [place] # (Auto) 0.7 Eos # (Auto) 0.1 Baso # (Auto) 0.0 Abs Immat Gran (auto) 0.02 Absolute Neuts (auto) 4.0 Absolute Nucleated RBC 0.000 Nucleated RBC % (auto) 0.0 PT 10.6 INR 0.9 APTT 36.3 Sodium 142 Potassium 3.5 Chloride 108 Carbon Dioxide 21 L Anion Gap 17 BUN 20 H Creatinine 0.95 Estim Creat Clear Calc 66.4 Estimated GFR 60 Random Glucose 103 Calcium 9.6 Magnesium 2.2 Total Bilirubin 0.3 Direct Bilirubin < 0.2 AST 29 ALT 32 H Alkaline Phosphatase 103 D Troponin I High Sens B-Natriuretic Peptide Total Protein 7.5 Albumin 4.2 TSH 1.40 COVID-19 ([facility]) COVID-19 Clin Com 07/27/21 07/27/21 01:14 03:39 WBC RBC Hgb Hct MCV MCH MCHC RDW Plt Count MPV Immature Gran % (Auto) Neut % (Auto) Lymph % (Auto) [place] % (Auto) Eos % (Auto) Baso % (Auto) Lymph # (Auto) [place] # (Auto) Eos # (Auto) Baso # (Auto) Abs Immat Gran (auto) Absolute Neuts (auto) Absolute Nucleated RBC Nucleated RBC % (auto) PT INR APTT Sodium Potassium Chloride Carbon Dioxide Anion Gap BUN Creatinine Estim Creat Clear Calc Estimated GFR Random Glucose Calcium Magnesium Total Bilirubin Direct Bilirubin AST ALT Alkaline Phosphatase Troponin I High Sens < 3.5 B-Natriuretic Peptide 62 Total Protein Albumin TSH COVID-19 ([facility]) Negative COVID-19 Clin Com See Note ECG Interpretation: Most recent EKG shows sinus rhythm at 50/Min. On telemetry at this moment, sinus rhythm around 68/Min. Admission EKG from on midnight shows atrial fibrillation with a rate of 151/Min with diffuse ST-T changes. Imaging Radiologist's impression: Impressions Chest X-Ray 07/27/21 01:11 IMPRESSION: -No acute cardiopulmonary abnormalities. Lungs clear. Assessment and Plan (1) Atrial fibrillation with rapid ventricular response: Status: Acute Paroxysmal atrial fibrillation with recurrence after almost 6 years. Durations so far around 6-8 hours before she went back to normal rhythm. She takes beta-blockers at home at Toprol-XL 50 mg daily. She can take a 2nd- 25 mg dose in the evening. Otherwise with regard to anticoagulation, she is not too keen on it. It seems that has been discussed in the past based on office note, but patient has been somewhat reluctant to take it. Her CHADS2 Vasc score will be 2 for hypertension and females but her episodes are so infrequent. Her LV function is normal based on last echocardiogram from 2019 with normal atrial size. Hence no changes made today and she may pursue this with her own director internal communications and I will make an appointment for the same. Otherwise, discharge planning. Procedures Date of Service Date of Service: 07/27/21
--- NOTE | 2021-07-27 10:45 | MHC.CM.PN ---
Met with patient in regards to discharge planning. Patient lives alone, ambulates independently and had no services prior to coming to the hospital. No services anticipated to be needed at discharge because patient is not homebound. PCP verified as Dr Jameson. HCP completed, signed and witnessed. Original given to patient. Copy placed in chart. Patient received 3 Moderna vaccines. Patient's sig other, [facility] will transport patient when medically stable. Continue to monitor for d/c needs.
== END 2021-07-27 11:01 | disposition home or self-care (01) | DRG 201 ==
LOC: HO.ED 03:36 → HO.EDOVER 05:56
PROVIDERS: Admitting Provider Internal Medicine; Emergency Provider Emergency Medicine; PCP Internal Medicine; Visit Provider Internal Medicine
DX: I48.0 Paroxysmal atrial fibrillation (principal); I10 Essential (primary) hypertension; E78.5 Hyperlipidemia, unspecified; Z20.822 Contact with and (suspected) exposure to COVID-19; Z79.1 Long term (current) use of non-steroidal anti-inflammatories (NSAID); Z79.82 Long term (current) use of aspirin; Z79.899 Other long term (current) drug therapy
CPT/HCPCS: 36415; 71045; 80048; 80076; 83735; 83880; 84443; 84484; 85025; 85610; 85730; 87635; 93005; 99219; 99284

== ENCOUNTER → 2021-08-01 11:02 | Outpatient (BNVA) | payer BC, SELFPAY | PROVIDERS: PCP Internal Medicine; Referring Provider Internal Medicine; Visit Provider Internal Medicine Cardiovascular Disease | DX: I48.0 Paroxysmal atrial fibrillation (principal); I10 Essential (primary) hypertension | CPT/HCPCS: 93005 ==

== ENCOUNTER 2021-10-23 20:42 | Inpatient (IN) | payer BC, SELFPAY ==
--- NOTE | 2021-10-23 | ECG_ITS ---
Test Reason : CHEST PALPS Blood Pressure : / mmHG Vent. Rate : 151 BPM Atrial Rate : 000 BPM P-R Int : 000 ms QRS Dur : 082 ms QT Int : 256 ms P-R-T Axes : 000 044 200 degrees QTc Int : 405 ms Atrial fibrillation with rapid ventricular response Marked ST abnormality, possible inferolateral subendocardial injury Abnormal ECG When compared with ECG of 27-JUL-2021 06:10, Atrial fibrillation has replaced Sinus rhythm Vent. rate has increased BY [address] now depressed in Inferior leads ST now depressed in Lateral leads Referred By: Generic ED Physician Electronically Signed By:Gurjit Armstrong
[2021-10-23 21:10] VITALS: BP 132/78; PULSE 140; RESP 19; TEMP 36.4; O2SAT 97; BMI 25.1
--- NOTE | 2021-10-23 21:33 | ED_ITS ---
HPI - Arrhythmia/Palpitations General Chief Complaint: Arrhythmia/Palpitations Stated Complaint: afib Time Seen by Provider: 10/23/21 21:24 Source: patient Mode of arrival: ambulatory Limitations: no limitations History of Present Illness HPI narrative: Patient comes to the emergency room complaining palpitations. Patient states that she has been previously diagnosed with atrial fibrillation. She takes metoprolol 75 mg in the evening, patient states that per choice, she does not want to be on anticoagulation medications. Patient states she is compliant with the medication. Earlier today, approximately 1 hour 20 minutes ago, patient was lying down in bed, and she was sudden onset of palpitations. Patient states that she has no chest pain, no shortness of breath, just palpitations. Patient was seen in the hospital in July of 2021 for the same issue. Related Data Home Medications Medication Instructions Recorded Confirmed aspirin 81 mg chewable tablet 81 mg PO DAILY 07/27/21 08/01/21 atorvastatin 20 mg tablet 20 mg PO DAILY 08/01/21 08/01/21 metoprolol succinate 50 mg 50 mg PO DAILY 08/01/21 08/01/21 tablet,extended release 24 hr piroxicam 20 mg capsule 20 mg PO DAILY PRN 08/01/21 08/01/21 Previous Rx's Medication Instructions Recorded metoprolol succinate 25 mg 25 mg PO BEDTIME #90 tab 09/06/21 tablet,extended release 24 hr (Toprol XL) Allergies Allergy/AdvReac Type Severity Reaction Status Date / Time No Known Allergies Allergy Verified 10/23/21 21:10 Review of Systems Review of Systems: Constitutional : No Weight loss, No Fever, No Chills, No Night Sweats, No Fatigue, No Malaise ENT/Mouth : No Hearing loss, No Ear Pain, No Nasal Congestion, No Sinus Pain, No Hoarseness, No sore throat, No Rhinorrhea, No Swallowing Difficulty Eyes: No Eye Pain, No Swelling, No Redness, No Foreign Body, No Discharge, No Vision Changes Cardiovascular : No Chest Pain, No SOB, No Dyspnea on Exertion, No Orthopnea, No Edema, complaining of Palpitations Respiratory : No Cough, No Sputum, No Wheezing, No Smoke Exposure, No Dyspnea Gastrointestinal : No Nausea, No Vomiting, No Diarrhea, No Constipation, No abdominal Pain, No Hematochezia, No Melena Genitourinary : no irregular bleeding, No Dysuria, No Urinary Frequency, No Hematuria, No Urinary Incontinence, No Urgency, No Flank Pain, No Urinary Flow Changes, No Hesitancy Musculoskeletal : No joint pain, No Myalgias, No Joint Swelling Skin : No Skin Lesions, No rash Neuro : No Weakness, No Numbness, No Paresthesias, No Loss of Consciousness, No Dizziness, No Headache Psych : No Anxiety/Panic, No Depression, No SI/HI/AH/VH, No Social Issues, Heme/Lymph: No Bruising, No Bleeding,No Lymphadenopathy Endocrine : No Polyuria, No Polydipsia, No Temperature Intolerance [facility] Past Medical History Medical History Atrial fibrillation with rapid ventricular response HTN (hypertension) Paroxysmal atrial fibrillation Surgical History No pertinent past surgical history Family History Family History Mother Heart disease Social History Social History Alcohol intake: current Alcohol intake frequency: a few times a week Patient Tobacco Use Status: Never used Tobacco Advance Directives: Yes Advance Directives on File: Yes Advance Directives Date on File: 07/27/21 service: No Current occupational status: retired Physical Exam Vital Signs: Vital Signs: Last Vital Signs Temp 97.5 F 10/23/21 21:10 Pulse 129 H 10/23/21 23:24 Resp 10 L 10/23/21 23:24 BP 125/72 10/23/21 23:24 Pulse Ox 96 10/23/21 23:24 BMI result Body Mass Index 25.1 Const: Other: Appearance: Alert. Oriented X3. No acute distress. Eyes: Pupils equal, round and reactive to light. ENT: Pharynx normal. Neck: Normal inspection. Neck supple. No lymph nodes noted. No crepitus CVS: Irregularly irregular heart rate, approximately heart rate of 140, Pulses normal. Normal S1 and S2 Respiratory: No respiratory distress. Breath sounds normal. No Wheezing. No rales Abdomen: Soft and nontender. No rigidity. No distention. Skin: Skin warm and dry. Normal skin color. Normal skin turgor. Extremities: No lower extremity edema. No Lacerations. No Rash Neuro: Oriented X 3. No motor deficit. No sensory deficit. Moving all extermities. No slurred speech. Course Course Course Narrative: Patient's blood pressure 132/78 on arrival, heart rate 140. Patient takes metoprolol at home. Will go ahead and start with 5 mg of Lopressor IV. Patient is a 2nd dose of 5 mg of Lopressor IV. Heart rate did not change much. Patient was then given 1 dose of Cardizem IV 10 mg., no significant change. Patient will be started on Cardizem drip. Patient was looking forward to going home. I discussed with the patient that we could try a 2nd Cardizem push and see if the heart rate improves and she could be discharged home. Given that the prior 3 medication pushes did not work, unlikely that a 4th push will work. The other option is to go ahead and start a Cardizem drip. I discussed with the patient that Cardizem drip once it started I will call the hospitalist and get her admitted. Patient decided to start a Cardizem drip. MDM - Arrhythmia/Palpitations Lab Data Result diagrams: 10/23/21 21:49 10/23/21 21:49 Labs: Lab Results 10/23/21 10/23/21 10/23/21 Range/Units 21:49 21:49 21:49 WBC 11.1 H (4.8-10.8) X10*3/uL RBC 4.17 L (4.20-5.50) X10*6/uL Hgb 13.0 (12.0-16.0) g/dl Hct 38.8 (37.0-47.0) % MCV 93.0 (80.0-98.0) fL MCH 31.2 (27.0-33.0) pg MCHC 33.5 (31.0-35.0) g/dl RDW 13.1 (11.0-16.0) % Plt Count 269 (160-400) X10*3/uL MPV 9.3 L (9.4-12.3) fL Immature Gran % (Auto) 0.4 (0.0-0.4) % Neut % (Auto) 68.6 (45-73) % Lymph % (Auto) 23.2 (20-40) % [place] % (Auto) 6.6 (2-11) % Eos % (Auto) 0.8 (0-4) % Baso % (Auto) 0.4 (0-2) % Lymph # (Auto) 2.6 (1.2-4.9) X10*3/uL [place] # (Auto) 0.7 (0.1-1.2) X10*3/uL Eos # (Auto) 0.1 (0.0-0.4) X10*3/uL Baso # (Auto) 0.0 (0.0-0.2) X10*3/uL Abs Immat Gran (auto) 0.05 H (0.00-0.03) X10*3/uL Absolute Neuts (auto) 7.6 (2.0-8.3) x10*3/uL Absolute Nucleated RBC 0.000 (0.0-0.012) X10*3/uL Nucleated RBC % (auto) 0.0 (0.0-0.2) /100WBC PT (9.9-13.0) SEC INR (0.9-1.1) Sodium 141 (135-145) mmol/L Potassium 3.4 (3.3-5.1) mmol/L Chloride 107 (96-108) mmol/L Carbon Dioxide 22 (22-29) mmol/L Anion Gap 15 (12-20) BUN 21 H (9-16) mg/dL Creatinine 0.97 (0.5-1.4) mg/dL Estim Creat Clear Calc 65.0 Estimated GFR 58 Random Glucose 113 (60-115) mg/dL Calcium 9.8 (8.4-10.2) mg/dL Magnesium 2.2 (1.6-2.6) mg/dL Total Bilirubin 0.3 (0.0-1.0) mg/dL Direct Bilirubin < 0.2 (0.0-0.5) mg/dL AST 40 H (5-31) U/L ALT 33 H (0-31) U/L Alkaline Phosphatase 101 (39-117) U/L Troponin I High Sens < 3.5 (<3.5-17.0) ng/L B-Natriuretic Peptide (<100) pg/mL Total Protein 7.5 (6.5-8.0) g/dL Albumin 4.0 (3.5-5.0) g/dL TSH (0.32-4.0) uIU/mL COVID-19 ([facility]) (Negative) COVID-19 Clin Com 10/23/21 10/23/21 10/23/21 Range/Units 21:49 21:49 21:49 WBC (4.8-10.8) X10*3/uL RBC (4.20-5.50) X10*6/uL Hgb (12.0-16.0) g/dl Hct (37.0-47.0) % MCV (80.0-98.0) fL MCH (27.0-33.0) pg MCHC (31.0-35.0) g/dl RDW (11.0-16.0) % Plt Count (160-400) X10*3/uL MPV (9.4-12.3) fL Immature Gran % (Auto) (0.0-0.4) % Neut % (Auto) (45-73) % Lymph % (Auto) (20-40) % [place] % (Auto) (2-11) % Eos % (Auto) (0-4) % Baso % (Auto) (0-2) % Lymph # (Auto) (1.2-4.9) X10*3/uL [place] # (Auto) (0.1-1.2) X10*3/uL Eos # (Auto) (0.0-0.4) X10*3/uL Baso # (Auto) (0.0-0.2) X10*3/uL Abs Immat Gran (auto) (0.00-0.03) X10*3/uL Absolute Neuts (auto) (2.0-8.3) x10*3/uL Absolute Nucleated RBC (0.0-0.012) X10*3/uL Nucleated RBC % (auto) (0.0-0.2) /100WBC PT 10.2 (9.9-13.0) SEC INR 0.9 (0.9-1.1) Sodium (135-145) mmol/L Potassium (3.3-5.1) mmol/L Chloride (96-108) mmol/L Carbon Dioxide (22-29) mmol/L Anion Gap (12-20) BUN (9-16) mg/dL Creatinine (0.5-1.4) mg/dL Estim Creat Clear Calc Estimated GFR Random Glucose (60-115) mg/dL Calcium (8.4-10.2) mg/dL Magnesium (1.6-2.6) mg/dL Total Bilirubin (0.0-1.0) mg/dL Direct Bilirubin (0.0-0.5) mg/dL AST (5-31) U/L ALT (0-31) U/L Alkaline Phosphatase (39-117) U/L Troponin I High Sens (<3.5-17.0) ng/L B-Natriuretic Peptide 115 H (<100) pg/mL Total Protein (6.5-8.0) g/dL Albumin (3.5-5.0) g/dL TSH (0.32-4.0) uIU/mL COVID-19 ([facility]) Negative (Negative) COVID-19 Clin Com See Note 10/23/21 Range/Units 21:49 WBC (4.8-10.8) X10*3/uL RBC (4.20-5.50) X10*6/uL Hgb (12.0-16.0) g/dl Hct (37.0-47.0) % MCV (80.0-98.0) fL MCH (27.0-33.0) pg MCHC (31.0-35.0) g/dl RDW (11.0-16.0) % Plt Count (160-400) X10*3/uL MPV (9.4-12.3) fL Immature Gran % (Auto) (0.0-0.4) % Neut % (Auto) (45-73) % Lymph % (Auto) (20-40) % [place] % (Auto) (2-11) % Eos % (Auto) (0-4) % Baso % (Auto) (0-2) % Lymph # (Auto) (1.2-4.9) X10*3/uL [place] # (Auto) (0.1-1.2) X10*3/uL Eos # (Auto) (0.0-0.4) X10*3/uL Baso # (Auto) (0.0-0.2) X10*3/uL Abs Immat Gran (auto) (0.00-0.03) X10*3/uL Absolute Neuts (auto) (2.0-8.3) x10*3/uL Absolute Nucleated RBC (0.0-0.012) X10*3/uL Nucleated RBC % (auto) (0.0-0.2) /100WBC PT (9.9-13.0) SEC INR (0.9-1.1) Sodium (135-145) mmol/L Potassium (3.3-5.1) mmol/L Chloride (96-108) mmol/L Carbon Dioxide (22-29) mmol/L Anion Gap (12-20) BUN (9-16) mg/dL Creatinine (0.5-1.4) mg/dL Estim Creat Clear Calc Estimated GFR Random Glucose (60-115) mg/dL Calcium (8.4-10.2) mg/dL Magnesium (1.6-2.6) mg/dL Total Bilirubin (0.0-1.0) mg/dL Direct Bilirubin (0.0-0.5) mg/dL AST (5-31) U/L ALT (0-31) U/L Alkaline Phosphatase (39-117) U/L Troponin I High Sens (<3.5-17.0) ng/L B-Natriuretic Peptide (<100) pg/mL Total Protein (6.5-8.0) g/dL Albumin (3.5-5.0) g/dL TSH 1.60 (0.32-4.0) uIU/mL COVID-19 ([facility]) (Negative) COVID-19 Clin Com Discharge Plan Discharge Clinical Impression: Atrial fibrillation with rapid ventricular response Patient Disposition: Admitted As Inpatient Prescriptions: No Action metoprolol succinate [Toprol XL] 25 mg tablet extended release 24 hr 25 mg PO BEDTIME Qty: 90 1RF aspirin 81 mg Tablet,Chewable 81 mg PO DAILY 0RF atorvastatin 20 mg tablet 20 mg PO DAILY 0RF metoprolol succinate 50 mg tablet extended release 24 hr 50 mg PO DAILY 0RF piroxicam 20 mg capsule 20 mg PO DAILY PRN (Reason: arthritis pain) 0RF
[2021-10-23 21:58] LABS: MANUAL DIFF FLAG NO
[2021-10-23 22:00] LABS: Basophils Percent Auto 0.4 % (0-2); Eosinophils Absolute Auto 0.1 X10*3/uL (0.0-0.4); Eosinophils Percent Auto 0.8 % (0-4); Hematocrit 38.8 % (37.0-47.0); Imm Gran Abs Auto 0.05 X10*3/uL (0.00-0.03); Imm Gran Pct Auto 0.4 % (0.0-0.4); Lymphocytes Absolute Auto 2.6 X10*3/uL (1.2-4.9); Lymphocytes Percent Auto 23.2 % (20-40); Mean Corpuscular HGB Conc 33.5 g/dl (31.0-35.0); Mean Corpuscular Hemoglobin 31.2 pg (27.0-33.0); Mean Platelet Volume 9.3 fL (9.4-12.3); Monocytes Absolute Auto 0.7 X10*3/uL (0.1-1.2); Monocytes Percent Auto 6.6 % (2-11); Neutrophils Absolute Auto 7.6 x10*3/uL (2.0-8.3); Neutrophils Percent Auto 68.6 % (45-73); Platelet Count 269 X10*3/uL (160-400); Red Blood Count 4.17 X10*6/uL (4.20-5.50); Red Cell Distribution Width 13.1 % (11.0-16.0); White Blood Count 11.1 X10*3/uL (4.8-10.8)
[2021-10-23] MEDS: Metoprolol Tartrate 5 MG/5 ML VIAL IVPUSH ×2 (22:00→22:22)
[2021-10-23 22:07] LABS: INTERNATIONAL NORM RATIO 0.9 (0.9-1.1); Prothrombin Time 10.2 SEC (9.9-13.0)
[2021-10-23 22:14] LABS: COVID-19 Test Negative (Negative)
[2021-10-23 22:15] LABS: Alanine Aminotransferase 33 U/L (0-31); Alkaline Phosphatase 101 U/L (39-117); Anion Gap 15 (12-20); Aspartate Amino Transferase 40 U/L (5-31); Bilirubin Direct < 0.2 mg/dL (0.0-0.5); Bilirubin Total 0.3 mg/dL (0.0-1.0); Blood Urea Nitrogen 21 mg/dL (9-16); Calcium 9.8 mg/dL (8.4-10.2); Carbon Dioxide 22 mmol/L (22-29); Chloride 107 mmol/L (96-108); Estimated Glomerular Filt Rate 58; Glucose Random 113 mg/dL (60-115); Magnesium 2.2 mg/dL (1.6-2.6); Potassium 3.4 mmol/L (3.3-5.1); Sodium 141 mmol/L (135-145); Total Protein 7.5 g/dL (6.5-8.0)
[2021-10-23 22:21] VITALS: BP 134/77; PULSE 140; RESP 10; O2SAT 96
[2021-10-23 22:21] LABS: B Type Natriuretic Peptide 115 pg/mL (<100); Troponin-I High Sensitivity < 3.5 ng/L (<3.5-17.0)
[2021-10-23 23:24] VITALS: BP 125/72; PULSE 129; RESP 10; O2SAT 96
[2021-10-23] MEDS: dilTIAZem HCL 50 MG/10 ML VIAL 10 MG IVPUSH (23:25)
[2021-10-23 23:57] VITALS: BP 117/65; PULSE 68; RESP 14; O2SAT 94
--- NOTE | 2021-10-23 23:59 | PM.IMHP ---
History of Present Illness Date of Service: 10/23/21 Chief Complaint: palpitations 61-year-old female with a past medical history of hypertension, atrial fibrillation-not on anticoagulation; presented to the hospital today with a chief complaint of palpitations. Patient denies any chest pain, lightheadedness or dizziness. Denies any fever chills cough. Denies any recent travel or sick contacts. Denies any GI symptoms. Review of all other systems is negative except mentioned above ER course: Per ER team patient on presentation noted to be in AFib with rapid ventricular response; received IV metoprolol push x2, diltiazem IV push x1; no significant improvement; patient was subsequently started on diltiazem drip. Admitted to the hospital for further management. [facility] Medical History Atrial fibrillation with rapid ventricular response HTN (hypertension) Paroxysmal atrial fibrillation Family History Mother Heart disease Surgical History No pertinent past surgical history Social History Alcohol intake: current Alcohol intake frequency: a few times a week Patient Tobacco Use Status: Never used Tobacco Advance Directives Date on File: 07/27/21 service: No Current occupational status: retired [employer] Allergies Allergy/AdvReac Type Severity Reaction Status Date / Time No Known Allergies Allergy Verified 10/23/21 21:10 Active Medications: Current Medications Diltiazem HCl 125 mg/ Sodium (Chloride) 125 mls @ 0 mls/hr IVCONT .Q0M [facility]; Protocol Home Medications Medication Instructions Recorded Confirmed Last Taken Type aspirin 81 mg chewable tablet 81 mg PO DAILY 07/27/21 10/24/21 10/23/21 08:00 History atorvastatin 20 mg tablet 20 mg PO BEDTIME 08/01/21 10/24/21 10/23/21 19:00 History metoprolol succinate 50 mg 50 mg PO DAILY 08/01/21 10/24/21 10/23/21 08:00 History tablet,extended release 24 hr piroxicam 20 mg capsule 20 mg PO DAILY PRN 08/01/21 10/24/21 Unknown History cholecalciferol (vitamin D3) 50 50 mcg PO DAILY 10/24/21 10/24/21 10/23/21 08:00 History mcg (2,000 unit) tablet (Vitamin D3) multivitamin 1 tab PO DAILY 10/24/21 10/24/21 10/23/21 History Physical Exam Vital Signs and Narrative: Vital Signs: Last Vital Signs Temp 97.5 F 10/23/21 21:10 Pulse 129 H 10/23/21 23:24 Resp 10 L 10/23/21 23:24 BP 125/72 10/23/21 23:24 Pulse Ox 96 10/23/21 23:24 BMI result Body Mass Index 25.1 Gen: Appears be in no acute distress HEENT: NCAT, Moist mucosa. Pulmonary: Vesicular breath sounds, fair air entry CVS: Normal S1-S2 Abdomen: BS+, Soft, Nontender Extremities: Warm well perfused Neuro: Alert and awake. Results Labs CBC and Chem 7: 10/24/21 05:46 10/24/21 05:46 Labs: Laboratory Results - last 24 hr 10/23/21 10/23/21 10/23/21 21:49 21:49 21:49 MCV 93.0 MCH 31.2 MCHC 33.5 RDW 13.1 Plt Count 269 MPV 9.3 L Immature Gran % (Auto) 0.4 Neut % (Auto) 68.6 Lymph % (Auto) 23.2 [place] % (Auto) 6.6 Eos % (Auto) 0.8 Baso % (Auto) 0.4 Lymph # (Auto) 2.6 [place] # (Auto) 0.7 Eos # (Auto) 0.1 Baso # (Auto) 0.0 Abs Immat Gran (auto) 0.05 H Absolute Neuts (auto) 7.6 Absolute Nucleated RBC 0.000 Nucleated RBC % (auto) 0.0 PT INR Anion Gap 15 Estim Creat Clear Calc 65.0 Estimated GFR 58 Random Glucose 113 Calcium 9.8 Magnesium 2.2 Total Bilirubin 0.3 Direct Bilirubin < 0.2 AST 40 H ALT 33 H Alkaline Phosphatase 101 B-Natriuretic Peptide Total Protein 7.5 Albumin 4.0 TSH COVID-19 ([facility]) Negative COVID-19 Clin Com See Note 10/23/21 10/23/21 10/23/21 21:49 21:49 21:49 MCV MCH MCHC RDW Plt Count MPV Immature Gran % (Auto) Neut % (Auto) Lymph % (Auto) [place] % (Auto) Eos % (Auto) Baso % (Auto) Lymph # (Auto) [place] # (Auto) Eos # (Auto) Baso # (Auto) Abs Immat Gran (auto) Absolute Neuts (auto) Absolute Nucleated RBC Nucleated RBC % (auto) PT 10.2 INR 0.9 Anion Gap Estim Creat Clear Calc Estimated GFR Random Glucose Calcium Magnesium Total Bilirubin Direct Bilirubin AST ALT Alkaline Phosphatase B-Natriuretic Peptide 115 H Total Protein Albumin TSH 1.60 COVID-19 ([facility]) COVID-19 Clin Com Assessment and Plan (1) Atrial fibrillation with rapid ventricular response: Status: Resolved (2) HTN (hypertension): Plan 61-year-old female with a past medical history of hypertension, atrial fibrillation-not on anticoagulation; presented to the hospital today with a chief complaint of palpitations. Noted to be in AFib with RVR. Admitted for further management. AFib with RVR: Patient on metoprolol p.o. at home. Currently on diltiazem drip. Heart rate currently improving to low 100s; monitor on telemetry [id number] score 2. Pt refused anticoagulation in the past; educated the patient on stroke risk. cardiology consult for further recommendations echo in May 2020 showed EF of 60-60%, normal LV function. TSH within the normal limits History of hypertension: Blood pressure currently stable. DVT prophylaxis: Lovenox Code status: Full code Quality Stroke Does the patient have a stroke diagnosis?: No VTE Prior VTE?: No VTE Risk Level:: Medical - moderate - high VTE Device Contraindication: N/A - Device Ordered VTE Drug Contraindication: Treatment Not Indicated
[2021-10-24] VITALS (8 sets, daily range): BP systolic 104–141; BP diastolic 59–77; PULSE 53–128; RESP 11–16; TEMP 36.2–36.7; O2SAT 95–97
--- NOTE | 2021-10-24 | ECG_ITS ---
Test Reason : REPEAT Blood Pressure : / mmHG Vent. Rate : 051 BPM Atrial Rate : 051 BPM P-R Int : 142 ms QRS Dur : 102 ms QT Int : 448 ms P-R-T Axes : 039 032 033 degrees QTc Int : 412 ms Sinus bradycardia Otherwise normal ECG When compared with ECG of 23-OCT-2021 21:12, Sinus rhythm has replaced Atrial fibrillation Vent. rate has decreased BY 100 BPM QRS duration has increased ST no longer depressed in Inferior leads ST no longer depressed in Anterolateral leads Referred By: Jennifer Barnes Electronically Signed By:Gurjit Armstrong
[2021-10-24] MEDS: Enoxaparin Sodium 40 MG/0.4 ML SYRINGE SUBCUT (00:30)
[2021-10-24] MEDS: 0.9 % Sodium Chloride Flush 3 ML SYRINGE IVFLUSH (00:31)
[2021-10-24] MEDS: dilTIAZem HCL 125 MG in 0.9 % Sodium Chloride 100 ML 10 MG IVCONT (00:32)
--- NOTE | 2021-10-24 03:57 | PC.NURSE ---
PT HR was steady at 90-110 bpm and then suddenly broke a-fib with a rate of about 45 bpm afterwards. Cardizem drip was then paused on IV pump and then documented shortly after in the MAR. PT is currently resting in bed quietly, no reports of CP or SOB, and in no apparent distress. made aware.
--- NOTE | 2021-10-24 04:18 | PC.NURSE ---
This RN completed med rec at bed side with PT.
--- NOTE | 2021-10-24 05:46 | PC.NURSE ---
Patient transferred to overflow ed bed 6. Patient is alert and oriented x3, offers no complaints at this time. L/s clear, abd soft and nontender. Patient ambulated to bathroom with supervision, steady gait. Vitals stable, call herbert within reach, educated patient on use of call herbert for assistance.
[2021-10-24 05:58] LABS: MANUAL DIFF FLAG NO
[2021-10-24 06:08] LABS: Basophils Percent Auto 0.4 % (0-2); Eosinophils Absolute Auto 0.1 X10*3/uL (0.0-0.4); Hematocrit 38.3 % (37.0-47.0); Hemoglobin 12.6 g/dl (12.0-16.0); Imm Gran Abs Auto 0.02 X10*3/uL (0.00-0.03); Imm Gran Pct Auto 0.3 % (0.0-0.4); Lymphocytes Percent Auto 27.8 % (20-40); Mean Corpuscular HGB Conc 32.9 g/dl (31.0-35.0); Mean Corpuscular Hemoglobin 30.9 pg (27.0-33.0); Mean Corpuscular Volume 93.9 fL (80.0-98.0); Mean Platelet Volume 9.2 fL (9.4-12.3); Monocytes Absolute Auto 0.5 X10*3/uL (0.1-1.2); Monocytes Percent Auto 7.4 % (2-11); Neutrophils Absolute Auto 4.4 x10*3/uL (2.0-8.3); Neutrophils Percent Auto 63.1 % (45-73); Platelet Count 241 X10*3/uL (160-400); Red Blood Count 4.08 X10*6/uL (4.20-5.50)
[2021-10-24 06:28] LABS: Anion Gap 14 (12-20); Blood Urea Nitrogen 17 mg/dL (9-16); Calcium 9.3 mg/dL (8.4-10.2); Carbon Dioxide 24 mmol/L (22-29); Chloride 106 mmol/L (96-108); Creatinine Clr Calc Pharmacy 75.1; Estimated Glomerular Filt Rate > 60; Glucose Random 104 mg/dL (60-115); Potassium 3.6 mmol/L (3.3-5.1); Sodium 140 mmol/L (135-145)
--- NOTE | 2021-10-24 07:47 | PHA.MEDREC ---
Pharmacy Consult ? Medication Reconciliation Pharmacy has reviewed the medication reconciliation completed by Kaamri. Patient confirmed that she is on 2 metoprolol doses. Nella Winston, EzekielD
--- NOTE | 2021-10-24 08:31 | PC.NURSE ---
Pt received from tank inspector: Pt AOX4 and offers no complaints. NSR to SB noted. Lung clear. Pt abd soft and non-tender.
--- NOTE | 2021-10-24 09:55 | P.DS_ITS ---
DS: Providers Provider Date of Service: 10/24/21 Date of admission: 10/23/21 23:58 Primary care physician: Dayron Jameson MD Consults: 10/24/21 01:07 Consult to Cardiology Routine Consulting Provider: Gurjit Armstrong Reason for consultation: aFIB WITH rvr DS: Diagnosis Discharge Diagnosis (1) Atrial fibrillation with rapid ventricular response: Status: Acute (2) HTN (hypertension): Status: Acute DS: Summary Hospital Course Hospital Course: 61 year old female with hitory of Paroxysmal AFIB on metoprolol, declined anticoagulation in the past and presented with palpitations and noted to be in AFIB with RVR and treted with IV Metoprolol, IV cardizem push and started on drip and has converted to sinus rythm. We discussed benefitf of anticoagulation and she again does not want it --know there is signficant risk of storke. 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 Hirsch Time Spent with Patient Time attestation: Total time spent providing and/or coordinating discharge services: Discharge coordination time: Greater than 30 minutes Quality: Stroke Does the patient have a stroke diagnosis?: No Physical Exam Vital Signs: Vital Signs: Last Vital Signs Temp 97.2 F 10/24/21 09:23 Pulse 59 10/24/21 09:23 Resp 11 L 10/24/21 09:23 BP 134/77 10/24/21 09:23 Pulse Ox 95 10/24/21 09:23 BMI result Body Mass Index 25.1 Const: Other: General: AO X 3, no acute distress Resp: CTA bilateral CVS: S1,S2,RRR GI: +BS, NT, no distention Skin: No rash Neuro: motor grossly intact Psych: appropriate affect DS: Data Data Completed and Pending Labs on day of discharge: Laboratory Results - last 24 hr 10/23/21 10/23/21 10/23/21 21:49 21:49 21:49 WBC 11.1 H RBC 4.17 L Hgb 13.0 Hct 38.8 MCV 93.0 MCH 31.2 MCHC 33.5 RDW 13.1 Plt Count 269 MPV 9.3 L Immature Gran % (Auto) 0.4 Neut % (Auto) 68.6 Lymph % (Auto) 23.2 [place] % (Auto) 6.6 Eos % (Auto) 0.8 Baso % (Auto) 0.4 Lymph # (Auto) 2.6 [place] # (Auto) 0.7 Eos # (Auto) 0.1 Baso # (Auto) 0.0 Abs Immat Gran (auto) 0.05 H Absolute Neuts (auto) 7.6 Absolute Nucleated RBC 0.000 Nucleated RBC % (auto) 0.0 PT INR Sodium 141 Potassium 3.4 Chloride 107 Carbon Dioxide 22 Anion Gap 15 BUN 21 H Creatinine 0.97 Estim Creat Clear Calc 65.0 Estimated GFR 58 Random Glucose 113 Calcium 9.8 Magnesium 2.2 Total Bilirubin 0.3 Direct Bilirubin < 0.2 AST 40 H ALT 33 H Alkaline Phosphatase 101 Troponin I High Sens < 3.5 B-Natriuretic Peptide Total Protein 7.5 Albumin 4.0 TSH COVID-19 ([facility]) COVID-19 Clin Com 10/23/21 10/23/21 10/23/21 21:49 21:49 21:49 WBC RBC Hgb Hct MCV MCH MCHC RDW Plt Count MPV Immature Gran % (Auto) Neut % (Auto) Lymph % (Auto) [place] % (Auto) Eos % (Auto) Baso % (Auto) Lymph # (Auto) [place] # (Auto) Eos # (Auto) Baso # (Auto) Abs Immat Gran (auto) Absolute Neuts (auto) Absolute Nucleated RBC Nucleated RBC % (auto) PT 10.2 INR 0.9 Sodium Potassium Chloride Carbon Dioxide Anion Gap BUN Creatinine Estim Creat Clear Calc Estimated GFR Random Glucose Calcium Magnesium Total Bilirubin Direct Bilirubin AST ALT Alkaline Phosphatase Troponin I High Sens B-Natriuretic Peptide 115 H Total Protein Albumin TSH COVID-19 ([facility]) Negative COVID-19 Clin Com See Note 10/23/21 10/24/21 10/24/21 21:49 05:46 05:46 WBC 7.0 RBC 4.08 L Hgb 12.6 Hct 38.3 MCV 93.9 MCH 30.9 MCHC 32.9 RDW 13.0 Plt Count 241 MPV 9.2 L Immature Gran % (Auto) 0.3 Neut % (Auto) 63.1 Lymph % (Auto) 27.8 [place] % (Auto) 7.4 Eos % (Auto) 1.0 Baso % (Auto) 0.4 Lymph # (Auto) 2.0 [place] # (Auto) 0.5 Eos # (Auto) 0.1 Baso # (Auto) 0.0 Abs Immat Gran (auto) 0.02 Absolute Neuts (auto) 4.4 Absolute Nucleated RBC 0.000 Nucleated RBC % (auto) 0.0 PT INR Sodium 140 Potassium 3.6 Chloride 106 Carbon Dioxide 24 Anion Gap 14 BUN 17 H Creatinine 0.84 Estim Creat Clear Calc 75.1 Estimated GFR > 60 Random Glucose 104 Calcium 9.3 Magnesium Total Bilirubin Direct Bilirubin AST ALT Alkaline Phosphatase Troponin I High Sens B-Natriuretic Peptide Total Protein Albumin TSH 1.60 COVID-19 ([facility]) COVID-19 Clin Com Discharge Plan Discharge Anticipated Discharge Date/Time: 10/24/21 09:56 Patient Disposition: Home, Self-Care Discharge Diagnosis: Paroxysmal AFIB Referrals: Dayron Jameson MD [Primary Care Provider] - 1 Week Discharge Medications: Continued metoprolol succinate [Toprol XL] 25 mg tablet extended release 24 hr 25 mg PO BEDTIME Qty: 90 1RF aspirin 81 mg Tablet,Chewable 81 mg PO DAILY 0RF atorvastatin 20 mg tablet 20 mg PO BEDTIME 0RF metoprolol succinate 50 mg tablet extended release 24 hr 50 mg PO DAILY 0RF piroxicam 20 mg capsule 20 mg PO DAILY PRN (Reason: arthritis pain) 0RF cholecalciferol (vitamin D3) [Vitamin D3] 50 mcg (2,000 unit) Tablet 50 mcg PO DAILY 0RF multivitamin Tablet 1 tab PO DAILY 0RF Discharge Orders: Discharge Order (Routine); Ordered 10/24/21 Ordered By: Ludwin Morrison Diet: advance to usual diet Activity on Discharge: As tolerated Stand Alone Forms: Patient Portal Discharge page Care Plan Goals: prevent rehospitalization for AFIB Health Concerns: Atrial fibrilation Plan of Treatment: Take Metoprolol and aspirin as recommended and follow up with your Doctor in a week, follow up with Dr. Hirsch Assessment: as above
--- NOTE | 2021-10-24 11:26 | MHC.CM.PN ---
Met with patient in regards to discharge planning. Patient lives alone, ambulates independently and had no services prior to coming to the hospital. No services anticipated to be needed because patient is not homebound. PCP verified. Copy of HCP verified to be on file. Patient's sig other, Kd, will transport patient home when medically stable. Patient received 3 Moderna vaccines. Continue to monitor for d/c needs.
--- NOTE | 2021-10-24 13:07 | PM.CNCAR ---
History of Present Illness History of Present Illness Date of Service: 10/24/21 Requesting physician: Ludwin Morrison Chief complaint: Afib with RVR Narrative: 61-year-old female presenting for palpitations in AFib with RVR. She has converted back to sinus rhythm on her own. She said she had similar episodes in the past. At that time she was diagnosed with atrial fibrillation. it appears she had discussions about anticoagulation and was not agreeable. She is currently asymptomatic and is in sinus rhythm. She was being scheduled to see Dr. Hirsch in the office. [facility] Past Medical History Medical History Atrial fibrillation with rapid ventricular response HTN (hypertension) Paroxysmal atrial fibrillation Family History Family History Mother Heart disease Surgical History Surgical History No pertinent past surgical history Social History Social History Alcohol intake: current Alcohol intake frequency: a few times a week Patient Tobacco Use Status: Never used Tobacco Advance Directives: Yes Advance Directives on File: Yes Advance Directives Date on File: 07/27/21 service: No Current occupational status: retired Meds Allergies Allergy/AdvReac Type Severity Reaction Status Date / Time No Known Allergies Allergy Verified 10/23/21 21:10 Active Medications: Current Medications Acetaminophen (Acetaminophen 325 Mg Tablet) 650 mg PO Q6H PRN PRN Reason: Pain, Mild (Pain Scale 1-3) Enoxaparin Sodium (Enoxaparin Sodium 40 Mg/0.4 Ml Syringe) 40 mg SUBCUT Q24H [facility] Last Admin: 10/24/21 00:30 Dose: 40 mg Documented by: Diltiazem HCl 125 mg/ Sodium (Chloride) 125 mls @ 0 mls/hr IVCONT .Q0M [facility]; Protocol Last Titration: 10/24/21 03:54 Dose: 0 mg/hr, 0 mls/hr Documented by: Melatonin (Melatonin 3 Mg Tablet) 6 mg PO BEDTIME PRN PRN Reason: Insomnia Senna (Sennosides 8.6 Mg Tablet) 17.2 mg PO BEDTIME PRN PRN Reason: Constipation Sodium Chloride (0.9 % Sodium Chloride Flush 3 Ml Syringe) 3 ml IVFLUSH QSHIFT ERROL Last Admin: 10/24/21 08:30 Dose: Not Given Documented by: Home Medications Medication Instructions Recorded Confirmed Last Taken Type aspirin 81 mg chewable tablet 81 mg PO DAILY 07/27/21 10/24/21 10/23/21 08:00 History atorvastatin 20 mg tablet 20 mg PO BEDTIME 08/01/21 10/24/21 10/23/21 19:00 History metoprolol succinate 50 mg 50 mg PO DAILY 08/01/21 10/24/21 10/23/21 08:00 History tablet,extended release 24 hr piroxicam 20 mg capsule 20 mg PO DAILY PRN 08/01/21 10/24/21 Unknown History cholecalciferol (vitamin D3) 50 50 mcg PO DAILY 10/24/21 10/24/21 10/23/21 08:00 History mcg (2,000 unit) tablet (Vitamin D3) multivitamin 1 tab PO DAILY 10/24/21 10/24/21 10/23/21 History Physical Exam Vital Signs: Vital Signs: Last Vital Signs Temp 97.2 F 10/24/21 09:23 Pulse 59 10/24/21 09:23 Resp 11 L 10/24/21 09:23 BP 134/77 10/24/21 09:23 Pulse Ox 95 10/24/21 09:23 BMI result Body Mass Index 25.1 GENERAL APPEARANCE: in no acute distress, pleasant. NECK: no carotid bruit, no jugular venous distention. SKIN: no suspicious lesions, warm and dry. HEART: no murmurs, regular rate and rhythm. LUNGS: clear to auscultation bilaterally. ABDOMEN: soft, nontender. EXTREMITIES: no edema. PERIPHERAL PULSES: equal. NEUROLOGIC: No gross deficits, AAO X 3 Objective Labs and Meds Result diagrams: 10/24/21 05:46 10/24/21 05:46 Lab results: Laboratory Results - last 24 hr 10/23/21 10/23/21 10/23/21 21:49 21:49 21:49 WBC 11.1 H RBC 4.17 L Hgb 13.0 Hct 38.8 MCV 93.0 MCH 31.2 MCHC 33.5 RDW 13.1 Plt Count 269 MPV 9.3 L Immature Gran % (Auto) 0.4 Neut % (Auto) 68.6 Lymph % (Auto) 23.2 Hutchinson % (Auto) 6.6 Eos % (Auto) 0.8 Baso % (Auto) 0.4 Lymph # (Auto) 2.6 Hutchinson # (Auto) 0.7 Eos # (Auto) 0.1 Baso # (Auto) 0.0 Abs Immat Gran (auto) 0.05 H Absolute Neuts (auto) 7.6 Absolute Nucleated RBC 0.000 Nucleated RBC % (auto) 0.0 PT INR Sodium 141 Potassium 3.4 Chloride 107 Carbon Dioxide 22 Anion Gap 15 BUN 21 H Creatinine 0.97 Estim Creat Clear Calc 65.0 Estimated GFR 58 Random Glucose 113 Calcium 9.8 Magnesium 2.2 Total Bilirubin 0.3 Direct Bilirubin < 0.2 AST 40 H ALT 33 H Alkaline Phosphatase 101 Troponin I High Sens < 3.5 B-Natriuretic Peptide Total Protein 7.5 Albumin 4.0 TSH COVID-19 ([facility]) COVID-[employer] (VIC) 10/23/21 10/23/21 10/23/21 21:49 21:49 21:49 WBC RBC Hgb Hct MCV MCH MCHC RDW Plt Count MPV Immature Gran % (Auto) Neut % (Auto) Lymph % (Auto) Hutchinson % (Auto) Eos % (Auto) Baso % (Auto) Lymph # (Auto) Hutchinson # (Auto) Eos # (Auto) Baso # (Auto) Abs Immat Gran (auto) Absolute Neuts (auto) Absolute Nucleated RBC Nucleated RBC % (auto) PT 10.2 INR 0.9 Sodium Potassium Chloride Carbon Dioxide Anion Gap BUN Creatinine Estim Creat Clear Calc Estimated GFR Random Glucose Calcium Magnesium Total Bilirubin Direct Bilirubin AST ALT Alkaline Phosphatase Troponin I High Sens B-Natriuretic Peptide 115 H Total Protein Albumin TSH COVID-19 ([facility]) Negative COVID-[employer] See Note 10/23/21 10/24/21 10/24/21 21:49 05:46 05:46 WBC 7.0 RBC 4.08 L Hgb 12.6 Hct 38.3 MCV 93.9 MCH 30.9 MCHC 32.9 RDW 13.0 Plt Count 241 MPV 9.2 L Immature Gran % (Auto) 0.3 Neut % (Auto) 63.1 Lymph % (Auto) 27.8 Hutchinson % (Auto) 7.4 Eos % (Auto) 1.0 Baso % (Auto) 0.4 Lymph # (Auto) 2.0 Hutchinson # (Auto) 0.5 Eos # (Auto) 0.1 Baso # (Auto) 0.0 Abs Immat Gran (auto) 0.02 Absolute Neuts (auto) 4.4 Absolute Nucleated RBC 0.000 Nucleated RBC % (auto) 0.0 PT INR Sodium 140 Potassium 3.6 Chloride 106 Carbon Dioxide 24 Anion Gap 14 BUN 17 H Creatinine 0.84 Estim Creat Clear Calc 75.1 Estimated GFR > 60 Random Glucose 104 Calcium 9.3 Magnesium Total Bilirubin Direct Bilirubin AST ALT Alkaline Phosphatase Troponin I High Sens B-Natriuretic Peptide Total Protein Albumin TSH 1.60 COVID-19 ([facility]) COVID-19 Clin Com Assessment and Plan (1) Paroxysmal atrial fibrillation: Status: Acute Plan Pleasant 61-year-old female here for paroxysmal atrial fibrillation. She has broken out of atrial fibrillation on her own. She is on metoprolol as outpatient. I think she should resume the beta-suzanne at this stage. I had a detailed discussion with her about anticoagulation and that given chads Vasc score of 2 we should consider anticoagulation. She is still not sure about it and will think about it and will discuss with Dr. Hirsch as she sees him in the office. Thank you for allowing me to participate in the care of your patient. Please feel free to contact me if you have any questions. Procedures Date of Service Date of Service: 10/24/21
--- NOTE | 2021-10-24 14:33 | PC.NURSE ---
Pt D/C from ED Overflow with instructions. Pt states understanding and denies any further questions. All IV's removed prior to D/C. Pt ambulated to ride home.
== END 2021-10-24 18:55 | disposition home or self-care (01) | DRG 201 ==
LOC: HO.ED 10-24 00:02 → HO.EDOVER 10-24 00:08
PROVIDERS: Admitting Provider Hospitalist; Emergency Provider Emergency Medicine; PCP Internal Medicine; Visit Provider Internal Medicine
DX: I48.0 Paroxysmal atrial fibrillation (principal); I10 Essential (primary) hypertension; Z20.822 Contact with and (suspected) exposure to COVID-19; Z79.82 Long term (current) use of aspirin; Z79.899 Other long term (current) drug therapy
CPT/HCPCS: 36415; 80048; 80076; 83735; 83880; 84443; 84484; 85025; 85610; 87635; 93005; 96365; 96375; 96376; 99285; J1650

== ENCOUNTER → 2021-11-09 14:05 | Outpatient (BNVA) | payer BC, SELFPAY | PROVIDERS: PCP Internal Medicine; Referring Provider Internal Medicine; Visit Provider Internal Medicine Cardiovascular Disease | DX: I48.0 Paroxysmal atrial fibrillation (principal) | CPT/HCPCS: 93005 ==

== ENCOUNTER → 2021-12-04 10:42 | Outpatient (REF) | payer BC, SELFPAY ==
--- NOTE | 2021-12-04 10:48 | CA_ITS ---
Acquisition Time: 2021-12-04 11:08:17 Total Exercise Time: 00:06:27 Test Indications: Abnormal ECG Medications: ASA ATORVASTATIN FLUOXETINE METOPROLOL PIROXICAM Protocol: SARANYA Max HR: 136 BPM 86% of Pred: 158 BPM Max BP: 150/082 mmHG Max Work Load: 7.4 METS Exercise stress test with exercise 6 min 27 sec of Saranya protocol, achieving 84% MPHR, with mod sob and fatgue and request to stop, No chest discomfort, with isolated PVCs, with normotensive resposne to exercise, without EKG changes meeting criteria for ischemia: with J point depression and upsloping ST segments at peak, then slight downsloping to scooping STs in late recovery. Echo images obtained at rest and immediately post peak exercise. Definity contrast used. Test reviewed with Dr Bowman Referred By: Mehdi Hirsch Overread By: DEMETRIA LEVY
== END ==
LOC: HO.CARD 10:42
PROVIDERS: PCP Internal Medicine; Visit Provider Internal Medicine Cardiovascular Disease
DX: I48.0 Paroxysmal atrial fibrillation (principal)
CPT/HCPCS: 93350; Q9957

== ENCOUNTER → 2021-12-25 14:34 | Outpatient (REF) | payer BC, SELFPAY ==
--- NOTE | 2021-12-25 14:42 | CA_ITS ---
Transthoracic Echocardiogram Patient (Last, First, Middle): Mercy Brush, Gender: Female Date of : 1960 Age: 61 Procedure Date: 12/25/2021 Procedure Type: Transthoracic Echocardiogram Location: OP Height: 177.8 cm Weight: 79.38 kg BSA: 1.97 m2 Heart Rate: bpm BP: 140 / 80 mmHg Care Center Manager: KEILA Referring MD: Mehdi Hirsch MD Symptoms: I48.0 - Paroxysmal atrial fibrillation Study Quality: Fair ECG Rhythm: Sinus Conclusions: - The left ventricular systolic function is normal. The visually estimated ejection fraction is between 60-65%. - LV peak GLS -16.5%. - There is mild mitral valve regurgitation. - There is mild tricuspid valve regurgitation. Findings Left Ventricle Normal left ventricular cavity size. The left ventricular systolic function is normal. The visually estimated ejection fraction is between 60-65%. There is no evidence of regional wall motion abnormalities. Diastolic function is normal for age. There is mild septal asymmetric hypertrophy. LV peak GLS -16.5%. Right Ventricle Normal right ventricular cavity size and systolic function. Atria The left atrium is mildly dilated. Volume calculation could be overestimate. The right atrium is normal in size. Aortic Valve There is a normal trileaflet aortic valve. There is no aortic valve stenosis. There is no aortic valve regurgitation. Mitral Valve The mitral valve appears normal. There is mild mitral valve regurgitation. There is no mitral valve stenosis. Pulmonic Valve The pulmonic valve was not well visualized. Tricuspid Valve Normal tricuspid valve structure. There is mild tricuspid valve regurgitation. The pulmonary artery systolic pressure is normal. Great Vessels The aortic annulus, sinuses of valsalva, asc aorta, and aortic arch are normal in size. Venous The inferior vena cava is normal in size and collapses greater than 50% with inspiration. Pericardium/Pleural There is no evidence of pericardial effusion. Prior Study Comparison No significant change compared to prior study dated: 05/31/2020. Measurements 2D Linear Measurements IVSd: 0.79 0.6-0.9/0.6-1.0 cm LVIDd: 5.82 3.9-5.3/4.2-5.9 cm LVIDd Index: 2.95 2.4-3.2/2.2-3.1 cm/m2 LVIDs: 3.32 2.0-3.6 cm LVPWd: 0.67 0.7-1.1 cm LA Diam: 4.50 2.7-3.8/3.0-4.0 cm LAIDs Index: 2.28 1.5-2.3 cm/m2 LV Mass: 195.08 67-162/88-224 g LV Mass Index: 99.03 43-95/49-115 g/m2 LVOT Diam: 2.00 3.0+(-)1.3 cm 2D Systolic Function EF 2C: 67.60 >55% Mitral Valve MV Pk E: 0.63 MV PK A: 0.37 MV Decel Time: 219.00 E/A: 1.70 E'Lateral: 7.72 E'Medial: 7.51 E/E' Med: 8.40 E/E' Lat: 8.20 PHT: 64.00 MVA PHT: 3.44 Decel Kleberg: 2.87 MR VTI: 2.07 Aortic Valve AoV Pk Lawrence: 1.23 AoV Mn Lawrence: 0.82 AoV VTI: 0.23 AoV Pk Grad: 6.00 Aov Mn Grad: 3.00 KAT Cont.VTI: 3.17 LVOT LVOT Pk Lawrence: 1.12 LVOT Mn Lawrence: 0.72 LVOT VTI: 0.23 LVOT Pk Grad: 5.00 LVOT Mn Grad: 2.00 LVOT Diam: 2.00 LVOT Area: 3.14 Diastolic Function MV Pk E: 0.63 MV Pk A: 0.37 E/A: 1.70 E'Medial: 7.51 E/E' Med: 8.40 E' Laterial: 7.72 E/E' Lat: 8.20 Right Ventricle TAPSE (mm): 28.10 TVS' Lawrence: 14.40 Tricuspid Valve TR Pk Lawrence: 2.28 TR Pk Grad: 21.00 RA Press: 3.00 RVSP: 24.00 Great Vessels Aorta Sinus of Valsalva: 3.10 2.0-3.[address] Ridge: 2.92 1.7-3.4 cm Ao Asc: 3.10 2.1-3.4 cm Ao Arch: 2.50 Pulmonary Valve PV Pk Lawrence: 0.79 Peak PV Grad: 2.00 Updated in Other Vendor System with Status of Final Edil Bowman MD electronically signed on 12/26/2021 11:56:18 AM with status of Final
== END ==
LOC: HO.CARD 14:34
PROVIDERS: PCP Internal Medicine; Visit Provider Internal Medicine Cardiovascular Disease
DX: I48.0 Paroxysmal atrial fibrillation (principal)
CPT/HCPCS: 93306; 93356

== ENCOUNTER → 2022-01-01 13:23 | Outpatient (BNVA) | payer BC, SELFPAY | PROVIDERS: PCP Internal Medicine; Referring Provider Internal Medicine; Visit Provider Internal Medicine Cardiovascular Disease | DX: I48.0 Paroxysmal atrial fibrillation (principal) ==

== ENCOUNTER 2022-02-05 09:59 | Outpatient (REF) | payer BC, SELFPAY ==
[2022-02-05 11:20] LABS: MANUAL DIFF FLAG NO
[2022-02-05 11:25] LABS: Basophils Percent Auto 0.5 % (0-2); Eosinophils Absolute Auto 0.1 X10*3/uL (0.0-0.4); Eosinophils Percent Auto 1.3 % (0-4); Hematocrit 39.1 % (37.0-47.0); Hemoglobin 12.8 g/dl (12.0-16.0); Imm Gran Abs Auto 0.01 X10*3/uL (0.00-0.03); Imm Gran Pct Auto 0.1 % (0.0-0.4); Lymphocytes Absolute Auto 1.7 X10*3/uL (1.2-4.9); Lymphocytes Percent Auto 22.8 % (20-40); Mean Corpuscular HGB Conc 32.7 g/dl (31.0-35.0); Mean Corpuscular Hemoglobin 30.7 pg (27.0-33.0); Mean Corpuscular Volume 93.8 fL (80.0-98.0); Mean Platelet Volume 9.5 fL (9.4-12.3); Monocytes Absolute Auto 0.7 X10*3/uL (0.1-1.2); Monocytes Percent Auto 9.2 % (2-11); Neutrophils Absolute Auto 4.9 x10*3/uL (2.0-8.3); Neutrophils Percent Auto 66.1 % (45-73); Platelet Count 269 X10*3/uL (160-400); Red Blood Count 4.17 X10*6/uL (4.20-5.50); Red Cell Distribution Width 13.4 % (11.0-16.0); White Blood Count 7.4 X10*3/uL (4.8-10.8)
[2022-02-05 11:35] LABS: Alanine Aminotransferase 28 U/L (0-31); Albumin Level 4.3 g/dL (3.5-5.0); Alkaline Phosphatase 84 U/L (39-117); Anion Gap 11 (12-20); Aspartate Amino Transferase 27 U/L (5-31); Bilirubin Total 0.7 mg/dL (0.0-1.0); Blood Urea Nitrogen 15 mg/dL (9-16); Calcium 9.6 mg/dL (8.4-10.2); Carbon Dioxide 28 mmol/L (22-29); Chloride 103 mmol/L (96-108); Estimated Glomerular Filt Rate 53; Glucose Random 85 mg/dL (60-115); Potassium 4.3 mmol/L (3.3-5.1); Sodium 138 mmol/L (135-145); Total Protein 7.4 g/dL (6.5-8.0)
== END 2022-02-05 10:00 | disposition home or self-care (01) ==
LOC: HO.10HDL 09:59
PROVIDERS: Visit Provider Internal Medicine
DX: I10 Essential (primary) hypertension (principal); E78.00 Pure hypercholesterolemia, unspecified; R79.89 Other specified abnormal findings of blood chemistry
CPT/HCPCS: 36415; 80053; 85025

== ENCOUNTER 2022-05-21 06:38 | Outpatient (REF) | payer BC, SELFPAY ==
[2022-05-21 06:43] LABS: MANUAL DIFF FLAG NO
[2022-05-21 07:33] LABS: Basophils Absolute Auto 0.1 X10*3/uL (0.0-0.2); Basophils Percent Auto 0.7 % (0-2); Eosinophils Absolute Auto 0.1 X10*3/uL (0.0-0.4); Eosinophils Percent Auto 1.6 % (0-4); Hematocrit 41.4 % (37.0-47.0); Hemoglobin 13.5 g/dl (12.0-16.0); Imm Gran Abs Auto 0.02 X10*3/uL (0.00-0.03); Imm Gran Pct Auto 0.3 % (0.0-0.4); Lymphocytes Absolute Auto 2.3 X10*3/uL (1.2-4.9); Lymphocytes Percent Auto 33.9 % (20-40); Mean Corpuscular HGB Conc 32.6 g/dl (31.0-35.0); Mean Corpuscular Hemoglobin 31.2 pg (27.0-33.0); Mean Corpuscular Volume 95.6 fL (80.0-98.0); Mean Platelet Volume 9.6 fL (9.4-12.3); Monocytes Absolute Auto 0.5 X10*3/uL (0.1-1.2); Monocytes Percent Auto 7.4 % (2-11); Neutrophils Absolute Auto 3.8 x10*3/uL (2.0-8.3); Neutrophils Percent Auto 56.1 % (45-73); Platelet Count 307 X10*3/uL (160-400); Red Blood Count 4.33 X10*6/uL (4.20-5.50); Red Cell Distribution Width 13.2 % (11.0-16.0); White Blood Count 6.8 X10*3/uL (4.8-10.8)
[2022-05-21 07:54] LABS: Alanine Aminotransferase 33 U/L (0-31); Albumin Level 4.5 g/dL (3.5-5.0); Alkaline Phosphatase 73 U/L (39-117); Anion Gap 16 (12-20); Aspartate Amino Transferase 32 U/L (5-31); Bilirubin Total 0.7 mg/dL (0.0-1.0); Blood Urea Nitrogen 18 mg/dL (9-16); Calcium 9.6 mg/dL (8.4-10.2); Carbon Dioxide 26 mmol/L (22-29); Chloride 103 mmol/L (96-108); Cholesterol 193 mg/dL; Estimated Glomerular Filt Rate 47; Glucose Fasting 90 mg/dL (60-99); HDL Cholesterol 62 mg/dL; LDL Cholesterol Calculated 115 mg/dl; Potassium 4.3 mmol/L (3.3-5.1); Sodium 141 mmol/L (135-145); Total Protein 7.7 g/dL (6.5-8.0); Triglycerides 81 mg/dL
== END 2022-05-21 06:39 | disposition home or self-care (01) ==
LOC: HO.LAB 06:38
PROVIDERS: PCP Internal Medicine; Visit Provider Internal Medicine
DX: Z00.00 Encounter for general adult medical examination without abnormal findings (principal)
CPT/HCPCS: 36415; 80053; 80061; 85025

== ENCOUNTER 2022-06-11 08:33 | Outpatient (REF) | payer BC, SELFPAY ==
--- NOTE | ~2022-06-11 | MM_ITS ---
EXAMINATION: MM SCREENING DIGITAL BREAST TOMOSYNTHESIS, BILATERAL CLINICAL INFORMATION: Screening. Asymptomatic. The lifetime risk of breast cancer based on the Tyrer-Cuzick Model is 9%. COMPARISON: Mammography: 06/02/2021, 03/18/2020, 12/06/2018 TECHNIQUE: Digital breast tomosynthesis is performed in both the craniocaudal and mediolateral oblique views along with computer-aided detection (CAD). Synthesized 2D images are generated from the tomosynthesis. FINDINGS: There are scattered areas of fibroglandular density (ACR BI-RADS breast composition Category b). There are no significant masses, abnormal calcifications, or other abnormalities. Breast tissue composition borders on heterogeneously dense. Fibronodular parenchymal pattern is similar to prior exams. There is no developing density. No architectural abnormality. Biopsy clip marker again noted upper outer quadrant right breast. The axilla and skin contours are unremarkable. No significant changes. MM/MM tomosynthesis screening BI IMPRESSION: No mammographic evidence of malignancy. ASSESSMENT: BI-RADS 1: Negative RECOMMENDATION: Routine annual mammography screening. This patient's information was entered into a reminder system with a target due date for their next mammogram.
== END 2022-06-11 08:34 | disposition home or self-care (01) ==
LOC: HO.MAMMO 08:33
PROVIDERS: PCP Internal Medicine; Visit Provider Internal Medicine
DX: Z12.31 Encounter for screening mammogram for malignant neoplasm of breast (principal)
CPT/HCPCS: 77063; 77067

== ENCOUNTER 2022-08-06 09:55 | Outpatient (REF) | payer BC, SELFPAY ==
[2022-08-06 11:59] LABS: Alanine Aminotransferase 32 U/L (0-31); Albumin Level 4.3 g/dL (3.5-5.0); Alkaline Phosphatase 85 U/L (39-117); Anion Gap 15 (12-20); Aspartate Amino Transferase 36 U/L (5-31); Bilirubin Total 0.7 mg/dL (0.0-1.0); Blood Urea Nitrogen 19 mg/dL (9-16); Calcium 9.8 mg/dL (8.4-10.2); Carbon Dioxide 24 mmol/L (22-29); Chloride 103 mmol/L (96-108); Estimated Glomerular Filt Rate 59; Free T4 (Free Thyroxine) 0.92 ng/dL (0.71-1.85); Glucose Random 102 mg/dL (60-115); Potassium 4.4 mmol/L (3.3-5.1); Sodium 138 mmol/L (135-145); Thyroid Stimulating Hormone 1.13 uIU/mL (0.32-4.0); Total Protein 7.5 g/dL (6.5-8.0)
== END 2022-08-06 09:56 | disposition home or self-care (01) ==
LOC: HO.10HDL 09:55
PROVIDERS: Visit Provider Internal Medicine
DX: I48.0 Paroxysmal atrial fibrillation (principal); N18.9 Chronic kidney disease, unspecified; L67.8 Other hair color and hair shaft abnormalities
CPT/HCPCS: 36415; 80053; 84439; 84443

== ENCOUNTER 2023-06-17 07:58 | Outpatient (REF) | payer BC, SELFPAY ==
--- NOTE | ~2023-06-17 | MM_ITS ---
EXAMINATION: MM SCREENING DIGITAL BREAST TOMOSYNTHESIS, BILATERAL CLINICAL INFORMATION: Screening. Asymptomatic. COMPARISON: Mammography: This study is compared with prior exams dating back to 2013. TECHNIQUE: Digital breast tomosynthesis is performed in both the craniocaudal and mediolateral oblique views along with computer-aided detection (CAD). Synthesized 2D images are generated from the tomosynthesis. FINDINGS: The breasts are heterogeneously dense, which may obscure small masses (ACR BI-RADS breast composition Category c). There is an asymmetry in the upper outer quadrant of the left breast. Additional mammographic imaging of this finding is advised. For all diagnostic views, any scars of the left breast should be marked. In the right breast, there are no significant masses, abnormal calcifications, or other abnormalities. There is a tissue marker in the superior aspect of right breast from prior benign percutaneous biopsy. MM/MM tomosynthesis screening BI IMPRESSION: Focal asymmetry of the left breast warrants additional mammographic imaging. For all diagnostic views, any scars of the left breast should be marked. Benign findings right breast. ASSESSMENT: BI-RADS BI-RADS 0 - Incomplete: Needs additional Imaging. RECOMMENDATION: 1. Additional views of the left breast 2. Targeted ultrasound if warranted after review of the additional views. 3. Radiology department staff will contact the patient for additional imaging. Additional Imaging required This examination should not preclude the clinical evaluation of a suspicious palpable abnormality. This patient's information was entered into a reminder system with a target due date for their next mammogram.
== END 2023-06-17 07:59 | disposition home or self-care (01) ==
LOC: HO.MAMMO 07:58
PROVIDERS: PCP Internal Medicine; Visit Provider Internal Medicine
DX: Z12.31 Encounter for screening mammogram for malignant neoplasm of breast (principal)
CPT/HCPCS: 77063; 77067

== ENCOUNTER → 2023-06-17 08:15 | Outpatient (BNV) | payer BC, SELFPAY | PROVIDERS: PCP Internal Medicine; Visit Provider Radiology Diagnostic Radiology | DX: Z12.31 Encounter for screening mammogram for malignant neoplasm of breast (principal) | CPT/HCPCS: 77063; 77067 ==

== ENCOUNTER 2023-06-19 06:27 | Outpatient (REF) | payer BC, SELFPAY ==
[2023-06-19 06:41] LABS: MANUAL DIFF FLAG NO
[2023-06-19 07:18] LABS: Basophils Percent Auto 0.7 % (0-2); Eosinophils Absolute Auto 0.1 X10*3/uL (0.0-0.4); Hematocrit 39.6 % (37.0-47.0); Hemoglobin 13.2 g/dl (12.0-16.0); Imm Gran Abs Auto 0.02 X10*3/uL (0.00-0.03); Imm Gran Pct Auto 0.3 % (0.0-0.4); Lymphocytes Absolute Auto 1.8 X10*3/uL (1.2-4.9); Lymphocytes Percent Auto 29.6 % (20-40); Mean Corpuscular HGB Conc 33.3 g/dl (31.0-35.0); Mean Corpuscular Hemoglobin 31.1 pg (27.0-33.0); Mean Corpuscular Volume 93.4 fL (80.0-98.0); Mean Platelet Volume 9.4 fL (9.4-12.3); Monocytes Absolute Auto 0.5 X10*3/uL (0.1-1.2); Monocytes Percent Auto 8.3 % (2-11); Neutrophils Absolute Auto 3.6 x10*3/uL (2.0-8.3); Neutrophils Percent Auto 59.1 % (45-73); Platelet Count 308 X10*3/uL (160-400); Red Blood Count 4.24 X10*6/uL (4.20-5.50); Red Cell Distribution Width 13.2 % (11.0-16.0); White Blood Count 6.1 X10*3/uL (4.8-10.8)
[2023-06-19 07:45] LABS: Alanine Aminotransferase 30 U/L (0-31); Albumin Level 4.1 g/dL (3.5-5.0); Alkaline Phosphatase 74 U/L (39-117); Anion Gap 14 (12-20); Aspartate Amino Transferase 30 U/L (5-31); Bilirubin Total 0.7 mg/dL (0.0-1.0); Blood Urea Nitrogen 15 mg/dL (9-16); Calcium 9.6 mg/dL (8.4-10.2); Carbon Dioxide 23 mmol/L (22-29); Chloride 105 mmol/L (96-108); Cholesterol 195 mg/dL (<200); Estimated Glomerular Filt Rate > 60; Glucose Fasting 94 mg/dL (60-99); HDL Cholesterol 57 mg/dL (>40); LDL Cholesterol Calculated 113 mg/dL (<100); Sodium 138 mmol/L (135-145); Total Protein 7.7 g/dL (6.5-8.0); Triglycerides 129 mg/dL (<150)
== END 2023-06-19 06:28 | disposition home or self-care (01) ==
LOC: HO.LAB 06:27
PROVIDERS: PCP Internal Medicine; Visit Provider Internal Medicine
DX: I10 Essential (primary) hypertension (principal); E78.00 Pure hypercholesterolemia, unspecified
CPT/HCPCS: 36415; 80053; 80061; 85025

== ENCOUNTER 2023-07-08 09:26 | Outpatient (AMB) | payer BC, SELFPAY ==
--- NOTE | 2023-07-08 09:29 | A.OFFVIS_ITS ---
Intake Vital Signs 07/08/23 09:30 Height 5 ft 10 in Weight 187 lb 6.287 oz BMI 26.9 BP 120/80 Blood Pressure Location Lt brachial Position Sitting Pulse 58 Intake Visit Reasons: 1 YEAR FOLLOW UP Intake Note: 1 year follow-up with ekg feeling good Gut Snatcher Required: No Allergies No Known Allergies Allergy (Verified 10/23/21 21:10) Medication List - Last Reconciled 07/08/23 by Mehdi Hirsch MD aspirin 81 mg PO DAILY atorvastatin 20 mg PO BEDTIME cholecalciferol (vitamin D3) (Vitamin D3) 50 mcg PO DAILY fluoxetine 10 mg PO DAILY metoprolol succinate ER 50 mg PO DAILY metoprolol succinate ER 25 mg PO BEDTIME multivitamin 1 tab PO DAILY piroxicam 20 mg PO DAILY PRN HPI HPI Comments History of Present Illness Details Mercy comes for follow-up. She has been doing very well from cardiac perspective. No recurrent episodes of atrial fibrillation. Exercises regularly. Denies any exertional chest pain or shortness of breath. Taking all her medications. Blood pressure is a good control. Denies any heart failure syndrome. No neurologic symptoms of bleeding issues. [facility], LAT[facility] Medical History Paroxysmal atrial fibrillation Atrial fibrillation with rapid ventricular response HTN (hypertension) Surgical History No pertinent past surgical history Family History Mother Heart disease Social History Alcohol intake: current Alcohol intake frequency: a few times a week Patient Tobacco Use Status: Never used Tobacco Advance Directives Date on File: 07/27/21 service: No Current occupational status: retired Review of Systems Const Denies chills, Denies fatigue, Denies fever(s), Denies frequent falls, Denies weakness, Denies weight gain and Denies weight loss ENT Denies dizziness Card Denies chest pain, Denies leg edema, Denies lightheadedness, Denies palpitations, Denies dyspnea, Denies dyspnea on exertion, Denies orthopnea and Denies other (loss of consciousness) Resp Denies cough, Denies dyspnea and Denies dyspnea on exertion GI Denies hematochezia and Denies change in stool character Musc Denies abnormal gait, Denies muscle weakness, Denies numbness, Denies radiating pain into limb and Denies tingling Neuro Denies abnormal gait, Denies dizziness, Denies frequent falls, Denies numbness, Denies tingling and Denies weakness Endo Denies fatigue and Denies palpitations Physical Exam Vital Signs: Last Vital Signs Pulse 58 07/08/23 09:30 BP 120/80 07/08/23 09:30 BMI result Body Mass Index 26.9 Const General: cooperative, comfortable, no acute distress, alert, awake, anxious and well groomed Nutritional Appearance: average body habitus Orientation/consciousness: patient oriented x3 Limitations: no limitations Neck Neck: Yes trachea midline, Yes supple and Yes no JVD Resp Effort & Inspection: normal respiratory effort Auscultation: clear to auscultation bilaterally Cardio Jugular venous distension: no JVD Palpation: normal PMI Rate: regular rate Rhythm: regular rhythm Heart sounds: S1 normal heart sound present, S2 normal heart sound present, no click, no gallops, no murmurs and no rubs GI Auscultation: normal bowel sounds Skin General skin exam: no rashes or lesions noted Neuro General: patient oriented x3 and no focal motor deficits Extrem General: Yes no clubbing, cyanosis or edema Office Procedures EKG Details: EKG shows sinus bradycardia 58 beats per minute with normal EKG [id number], Complete Assessment & Plan Assessment & Plan (1) Paroxysmal atrial fibrillation: Code(s): I48.0 - Paroxysmal atrial fibrillation Plan: Paroxysmal atrial fibrillation, highly symptomatic. Has done very well with rhythm control approach and will continue pursue rhythm control approach. Has remained suppressed on metoprolol therapy. Continue to use metoprolol therapy. Avoidance of stimulants was discussed. Continue aggressive risk factor modification. Blood pressure is optimized, see below. Stress mitigation strategies to be pursued. CHADSVASc score of 2 with left atrial enlargement. Discuss that aspirin is not an adequate prophylaxis and should consider oral anticoagulation therapy. She continues to want to defer (2) HTN (hypertension): Code(s): I10 - Essential (primary) hypertension Plan: Hypertension which is currently well optimized advised to monitor blood pressure at home maintain a log. Goal blood pressure less than 130/84. Low-salt diet was discussed advised heart healthy lifestyle. Will follow up in the clinic in 1 year's time, sooner p.r.n.. Thank you for allowing me to partake in your care Coding Level of Care Code Est Pt Level 4 (33890) Diagnoses Paroxysmal atrial fibrillation I48.0 HTN (hypertension) I10 CPT Codes EKG - CPT: 84226-[id number], Complete ([id number])
[2023-07-08 09:30] VITALS: BP 120/80; PULSE 58; BMI 26.9
== END 2023-07-08 09:51 | disposition home or self-care (01) ==
PROVIDERS: Visit Provider Internal Medicine Cardiovascular Disease
DX: I48.0 Paroxysmal atrial fibrillation (principal); I10 Essential (primary) hypertension
CPT/HCPCS: 93010; 99214

== ENCOUNTER → 2023-07-08 09:26 | Outpatient (BNVA) | payer BC, SELFPAY | PROVIDERS: Visit Provider Internal Medicine Cardiovascular Disease | DX: I48.0 Paroxysmal atrial fibrillation (principal); I10 Essential (primary) hypertension | CPT/HCPCS: 93005 ==

== ENCOUNTER 2023-07-15 13:45 | Outpatient (REF) | payer BC, SELFPAY ==
--- NOTE | ~2023-07-15 | MM_ITS ---
EXAMINATION: MM DIAGNOSTIC DIGITAL BREAST TOMOSYNTHESIS, LEFT CLINICAL INFORMATION: Follow-up for one view asymmetry seen lateral CC view left breast. COMPARISON: Mammography: 06/17/2023, 06/11/2022, and dating back to 2018. TECHNIQUE: Digital breast tomosynthesis is performed. 2D images are generated from the tomosynthesis. The following views are obtained: Full-field 3-D left mediolateral view, and left 3-D cc spot compression view. FINDINGS: There are scattered areas of fibroglandular density (ACR BI-RADS breast composition Category b). Additional views demonstrate no persistent abnormality, mass, asymmetry, or parenchymal distortion. Only normal appearing lateral breast tissue is identified. MM/MM tomosynthesis added views L IMPRESSION: No persistent evidence of malignancy left breast. Recommend the patient resume routine annual screening mammography. ASSESSMENT: BI-RADS BI-RADS 1 - Negative RECOMMENDATION: 1 year F/U Results were provided to the patient at time of visit by the technologist. This patient's information was entered into a reminder system with a target due date for their next mammogram.
== END 2023-07-15 13:46 | disposition home or self-care (01) ==
LOC: HO.MAMMO 13:45
PROVIDERS: PCP Internal Medicine; Visit Provider Internal Medicine
DX: N64.89 Other specified disorders of breast (principal)
CPT/HCPCS: 77061; 77065

== ENCOUNTER → 2023-07-15 14:00 | Outpatient (BNV) | payer BC, SELFPAY | PROVIDERS: PCP Internal Medicine; Visit Provider Radiology Diagnostic Radiology | DX: N64.89 Other specified disorders of breast (principal) | CPT/HCPCS: 77061; 77065 ==

== ENCOUNTER 2024-01-19 00:40 | Emergency (ER) | payer BC, SELFPAY ==
--- NOTE | 2024-01-19 | ECG_ITS ---
Test Reason : RHYTHM CHANGE Blood Pressure : / mmHG Vent. Rate : 065 BPM Atrial Rate : 065 BPM P-R Int : 156 ms QRS Dur : 096 ms QT Int : 418 ms P-R-T Axes : 030 029 045 degrees QTc Int : 434 ms Normal sinus rhythm Normal ECG When compared with ECG of 19-JAN-2024 00:41, Sinus rhythm has replaced Atrial fibrillation Vent. rate has decreased BY [address] no longer depressed in Lateral leads Nonspecific T wave abnormality no longer evident in Inferior leads Nonspecific T wave abnormality no longer evident in Lateral leads Referred By: Generic ED Physician Electronically Signed By:Gurjit Armstrong
--- NOTE | 2024-01-19 00:42 | ECG_ITS ---
Test Reason : AFIB Blood Pressure : / mmHG Vent. Rate : 130 BPM Atrial Rate : 000 BPM P-R Int : 000 ms QRS Dur : 088 ms QT Int : 316 ms P-R-T Axes : 000 017 079 degrees QTc Int : 465 ms Atrial fibrillation with rapid ventricular response Nonspecific ST and T wave abnormality Abnormal ECG When compared with ECG of 24-OCT-2021 03:47, Atrial fibrillation has replaced Sinus rhythm Vent. rate has increased BY 79 BPM Non-specific change in ST segment in Inferior leads Nonspecific T wave abnormality, worse in Inferior leads Nonspecific T wave abnormality now evident in Lateral leads Referred By: Generic ED Physician Electronically Signed By:Gurjit Armstrong
[2024-01-19 00:51] VITALS: BP 137/84; PULSE 136; RESP 16; TEMP 36.4; O2SAT 95; BMI 25.8
[2024-01-19 00:56] VITALS: BP 156/86; PULSE 73
--- NOTE | 2024-01-19 00:56 | PC.NURSE ---
pt from home a&ox4, respirations even and unlabored, reporting onset of palpations an hour ago, reports hx of afib and reported coming to ed. upon arrival to triage, pt was a fib 130's, pt brought back to room, normal sinus on tele 70-72bpm. pt denies palpations, chest pain, n/v/d. 18G placed in right AC, labs obtained and sent.
[2024-01-19 00:58] LABS: MANUAL DIFF FLAG NO
[2024-01-19 01:08] LABS: Basophils Absolute Auto 0.1 X10*3/uL (0.0-0.2); Basophils Percent Auto 0.5 % (0-2); Eosinophils Absolute Auto 0.2 X10*3/uL (0.0-0.4); Eosinophils Percent Auto 1.5 % (0-4); Hematocrit 39.1 % (37.0-47.0); Hemoglobin 13.2 g/dl (12.0-16.0); Imm Gran Abs Auto 0.04 X10*3/uL (0.00-0.03); Imm Gran Pct Auto 0.4 % (0.0-0.4); Lymphocytes Absolute Auto 2.7 X10*3/uL (1.2-4.9); Lymphocytes Percent Auto 28.2 % (20-40); Mean Corpuscular HGB Conc 33.8 g/dl (31.0-35.0); Mean Corpuscular Hemoglobin 30.8 pg (27.0-33.0); Mean Corpuscular Volume 91.4 fL (80.0-98.0); Mean Platelet Volume 9.2 fL (9.4-12.3); Monocytes Absolute Auto 0.9 X10*3/uL (0.1-1.2); Monocytes Percent Auto 9.1 % (2-11); Neutrophils Absolute Auto 5.8 x10*3/uL (2.0-8.3); Neutrophils Percent Auto 60.3 % (45-73); Platelet Count 251 X10*3/uL (160-400); Red Blood Count 4.28 X10*6/uL (4.20-5.50); Red Cell Distribution Width 13.3 % (11.0-16.0); White Blood Count 9.7 X10*3/uL (4.8-10.8)
[2024-01-19 01:15] LABS: Alanine Aminotransferase 29 U/L (0-31); Albumin Level 4.2 g/dL (3.5-5.0); Alkaline Phosphatase 83 U/L (39-117); Anion Gap 15 (12-20); Aspartate Amino Transferase 30 U/L (5-31); Bilirubin Total 0.3 mg/dL (0.0-1.0); Blood Urea Nitrogen 20 mg/dL (9-16); Calcium 9.3 mg/dL (8.4-10.2); Carbon Dioxide 21 mmol/L (22-29); Chloride 104 mmol/L (96-108); Creatinine Clr Calc Pharmacy 52.4; Estimated Glomerular Filt Rate 47; Glucose Random 108 mg/dL (60-115); Potassium 3.9 mmol/L (3.3-5.1); Sodium 136 mmol/L (135-145); Total Protein 7.7 g/dL (6.5-8.0)
[2024-01-19 01:27] LABS: Troponin-I High Sensitivity < 2.7 ng/L (<3.5-17.0)
--- NOTE | 2024-01-19 01:59 | ED_ITS ---
HPI - Arrhythmia/Palpitations General Chief Complaint: Arrhythmia/Palpitations Stated Complaint: A fib Time Seen by Provider: 01/19/24 01:47 Source: patient Mode of arrival: ambulatory Limitations: no limitations History of Present Illness ED Provider: Dr. Sami Worthington HPI narrative: 63-year-old female with a history of paroxysmal atrial fibrillation and hypertension who presents emergency department for evaluation of sudden onset of atrial fibrillation. The patient states that she was in her usual state of health. She did go to a [employer] party this evening and had 3 beers while she was at the [employer] party. She states that around 23:30 while she was at rest she developed atrial fibrillation. She states that she felt like her heart was beating fast and irregularly. She denied lightheadedness, dizziness, chest pain, neck pain, jaw pain, arm pain. She states that she has had increased stress at work . She states she has in the process of retiring after 41 years of working in a [employer]. Related Data Home Medications ?Medication ?Instructions ?Recorded ?Confirmed aspirin 81 mg chewable tablet 81 mg PO DAILY 07/27/21 07/08/23 atorvastatin 20 mg tablet 20 mg PO BEDTIME 08/01/21 07/08/23 metoprolol succinate 50 mg 50 mg PO DAILY 08/01/21 07/08/23 tablet,extended release 24 hr piroxicam 20 mg capsule 20 mg PO DAILY PRN arthritis pain 08/01/21 07/08/23 cholecalciferol (vitamin D3) 50 50 mcg PO DAILY 10/24/21 07/08/23 mcg (2,000 unit) tablet (Vitamin D3) multivitamin 1 tab PO DAILY 10/24/21 07/08/23 fluoxetine 20 mg capsule 10 mg PO DAILY 07/08/23 07/08/23 Previous Rx's ?Medication ?Instructions ?Recorded metoprolol succinate 25 mg 25 mg PO BEDTIME #90 tabs 04/15/23 tablet,extended release 24 hr Allergies Allergy/AdvReac Type Severity Reaction Status Date / Time No Known Allergies Allergy Verified 01/19/24 00:52 Review of Systems 2 Review of Systems: Yes all other systems are reviewed and are negative [facility] Past Medical History [facility] Narrative: Social history: She denies tobacco use. She does drink alcohol 2 to 3 times a week. She denies drug use. Medical History Paroxysmal atrial fibrillation Atrial fibrillation with rapid ventricular response HTN (hypertension) Surgical History No pertinent past surgical history Family History Family History Mother Heart disease Social History Social History Alcohol intake: current Alcohol intake frequency: a few times a week Patient Tobacco Use Status: Never used Tobacco Advance Directives Date on File: 07/27/21 Do you have a plan to hurt others: No Plan service: No Current occupational status: retired Physical Exam 2 Vital Signs: Vital Signs: Last Vital Signs Temp 97.6 F 01/19/24 00:51 Pulse 73 01/19/24 00:56 Resp 16 01/19/24 00:51 BP 156/86 H 01/19/24 00:56 Pulse Ox 95 01/19/24 00:51 O2 Del Method Room Air 01/19/24 00:51 BMI result Body Mass Index 25.8 Vital signs did reveal an elevated blood pressure of 156/68 otherwise unremarkable. Exam: General: Awake, alert in no distress Head: Normocephalic, atraumatic EENT: PERRL, Lids normal, sclera normal, conjunctiva normal, nose normal , ears normal, throat without erythema or exudates Neck: Supple, no adenopathy Lung: breath sounds symmetric, no wheezing, rales or rhonchi Chest: symmetric movement, nontender Heart: regular rate and rhythm, normal S1, S2 no murmurs or rubs Abdomen: soft, non-tender, nondistended, normal bowel sounds Back: no vertebral tenderness, no CVAT Extremities: no deformities, moves all extremities symmetrically Neuro: Awake, alert, oriented, normal speech, cranial nerves intact, moves all extremities symmetrically Psych: Pleasant, cooperative Medical Decision Making Medical Decision Making MDM Narrative: 63-year-old female with a history of paroxysmal atrial fibrillation and hypertension who presents emergency department that came on suddenly at 23:30 hours while she was at rest. She did have 3 beers to drink while she was at a [employer] party but she does drink alcohol 2 to 3 times a week so this is not unusual amount of alcohol to drink. Patient has been compliant with her beta blockers. She had no concerning symptoms such as lightheadedness, dizziness, chest pain, neck, jaw, arm pain or shortness of breath. Vital signs did reveal an elevated blood pressure otherwise unremarkable. Differential diagnosis: ?Includes but is not limited to atrial fibrillation, other arrhythmia, electrolyte abnormalities, anemia Following evaluation was ordered: CBC, CMP, troponin, 12 EKG Course: 02:08 My interpretation patient's laboratory evaluation as follows: CBC was normal. CMP was normal. High sensitive troponin I was below detectable limits. Twelve EKG revealed a atrial fibrillation with a ventricular rate of 130 and less than [address] segment depression in the anterior lateral leads. While the patient was in the emergency department she spontaneously converted to a normal sinus rhythm. The patient is taking aspirin and does have a CHAD2 of 1 point (2.8% risk event per you). She was advised to discuss PCP or medical assistant whether or not she needs a different anticoagulant besides aspirin for her paroxysmal atrial fibrillation Admission/Observation Consideration of admission/observation: Escalation of care including admission/observation considered Lab Data MDM Lab Attestation statement: I reviewed the patient's lab results. 01/19/24 00:55 01/19/24 00:55 Labs: Lab Results 01/19/24 Range/Units 00:55 WBC 9.7 (4.8-10.8) X10*3/uL RBC 4.28 (4.20-5.50) X10*6/uL Hgb 13.2 (12.0-16.0) g/dl Hct 39.1 (37.0-47.0) % MCV 91.4 (80.0-98.0) fL MCH 30.8 (27.0-33.0) pg MCHC 33.8 (31.0-35.0) g/dl RDW 13.3 (11.0-16.0) % Plt Count 251 (160-400) X10*3/uL MPV 9.2 L (9.4-12.3) fL Immature Gran % (Auto) 0.4 (0.0-0.4) % Neut % (Auto) 60.3 (45-73) % Lymph % (Auto) 28.2 (20-40) % [place] % (Auto) 9.1 (2-11) % Eos % (Auto) 1.5 (0-4) % Baso % (Auto) 0.5 (0-2) % Lymph # (Auto) 2.7 (1.2-4.9) X10*3/uL [place] # (Auto) 0.9 (0.1-1.2) X10*3/uL Eos # (Auto) 0.2 (0.0-0.4) X10*3/uL Baso # (Auto) 0.1 (0.0-0.2) X10*3/uL Abs Immat Gran (auto) 0.04 H (0.00-0.03) X10*3/uL Absolute Neuts (auto) 5.8 (2.0-8.3) x10*3/uL Absolute Nucleated RBC 0.000 (0.0-0.012) X10*3/uL Nucleated RBC % (auto) 0.0 (0.0-0.2) /100WBC Sodium 136 (135-145) mmol/L Potassium 3.9 (3.3-5.1) mmol/L Chloride 104 (96-108) mmol/L Carbon Dioxide 21 L (22-29) mmol/L Anion Gap 15 (12-20) BUN 20 H (9-16) mg/dL Creatinine 1.17 (0.5-1.4) mg/dL Estim Creat Clear Calc 52.4 Estimated GFR 47 Random Glucose 108 (60-115) mg/dL Calcium 9.3 (8.4-10.2) mg/dL Total Bilirubin 0.3 (0.0-1.0) mg/dL AST 30 (5-31) U/L ALT 29 (0-31) U/L Alkaline Phosphatase 83 (39-117) U/L Troponin I High Sens < 2.7 (<3.5-17.0) ng/L Total Protein 7.7 (6.5-8.0) g/dL Albumin 4.2 (3.5-5.0) g/dL Independent Interpretation I performed an independent interpretation of an: EKG Interpretation: My independent interpretation the patient's 12 EKG done at 00:41 hours is as follows: Atrial fibrillation with an elevated ventricular rate of 130, no ST segment elevation, less than [address] segment depression V4 through V6, T-wave abnormalities, no PVCs. My independent interpretation patient's 2nd 12 EKG done at 00:59 hours is as follows: Normal sinus rhythm rate of 65, normal ND interval, QRS duration and QTC interval, no ST segment elevation, no ST segment depression, no PACs, no PVCs, no significant T-wave abnormalities. Compared to the patient's 1st EKG done in the emergency department the atrial fibrillation is not resolved. Chronic Conditions Patient?s care impacted by: Hypertension and Other (Paroxysmal atrial fibrillation) Discharge Plan Discharge Clinical Impression: Paroxysmal atrial fibrillation Patient Disposition: Home, Self-Care Instructions: A-fib (Atrial Fibrillation) (ED) Additional Instructions: Your initial EKG revealed that you are in atrial fibrillation with a heart rate of 130 beats per minute. While you are here in the emergency department your spontaneously converted into a normal sinus rhythm. Your blood work was normal. Your high sensitivity troponin I (marker of heart attack) was below detectable limits suggesting that you did not have a heart attack or heart damage caused by your atrial fibrillation. Continue taking your aspirin. You should discuss with your medical assistant or your primary care doctor whether or not you need to be on another medication/blood thinner besides aspirin for your intermittent atrial fibrillation. Continue taking medications as prescribed Follow-up with your doctor in 2 days. Please return to the emergency department if your symptoms get worse or if you develop any symptoms that are concerning to you. Prescriptions: No Action metoprolol succinate 25 mg tablet extended release 24 hr 25 mg PO BEDTIME Qty: 90 3RF aspirin 81 mg Tablet,Chewable 81 mg PO DAILY atorvastatin 20 mg tablet 20 mg PO BEDTIME metoprolol succinate 50 mg tablet extended release 24 hr 50 mg PO DAILY piroxicam 20 mg capsule 20 mg PO DAILY PRN (Reason: arthritis pain) cholecalciferol (vitamin D3) [Vitamin D3] 50 mcg (2,000 unit) Tablet 50 mcg PO DAILY multivitamin Tablet 1 tab PO DAILY fluoxetine 20 mg capsule 10 mg PO DAILY Print Language: Niuean
[2024-01-19 02:36] VITALS: BP 145/60; PULSE 55; RESP 17; TEMP 36.4; O2SAT 98
== END 2024-01-19 02:37 | disposition home or self-care (01) ==
LOC: HO.ED 02:19
PROVIDERS: Emergency Provider Emergency Medicine Emergency Medical Services; PCP Internal Medicine
DX: I48.0 Paroxysmal atrial fibrillation (principal); I10 Essential (primary) hypertension; Z79.01 Long term (current) use of anticoagulants; Z79.899 Other long term (current) drug therapy; Z79.02 Long term (current) use of antithrombotics/antiplatelets; Z79.82 Long term (current) use of aspirin
CPT/HCPCS: 36415; 80053; 84484; 85025; 93005; 99283; 99285

== ENCOUNTER → 2024-01-19 00:42 | Outpatient (BNV) | payer BC, SELFPAY | PROVIDERS: Emergency Provider Emergency Medicine Emergency Medical Services; PCP Internal Medicine; Visit Provider Internal Medicine Cardiovascular Disease | DX: I48.91 Unspecified atrial fibrillation (principal) | CPT/HCPCS: 93010 ==

== ENCOUNTER 2024-06-19 07:48 | Outpatient (REF) | payer BC, SELFPAY ==
--- NOTE | ~2024-06-19 | MM_ITS ---
EXAMINATION: MM SCREENING DIGITAL BREAST TOMOSYNTHESIS, BILATERAL CLINICAL INFORMATION: Screening. Asymptomatic. COMPARISON: Mammography: Comparison is made with available priors TECHNIQUE: Digital breast mammography with tomosynthesis is performed in both the craniocaudal and mediolateral oblique views along with computer-aided detection (CAD). FINDINGS: The breasts are heterogeneously dense, which may obscure small masses (ACR BI-RADS breast composition Category c). Right marker clip from previous needle core biopsy. There are no significant masses, abnormal calcifications, or other abnormalities. MM/MM tomosynthesis screening BI IMPRESSION: No mammographic evidence of malignancy. ASSESSMENT: BI-RADS BI-RADS 2 - Benign Findings RECOMMENDATION: Routine annual mammography screening. 1 year F/U This examination should not preclude the clinical evaluation of a suspicious palpable abnormality. This patient's information was entered into a reminder system with a target due date for their next mammogram. Electronically signed by: Maricruz Page DO 06/30/2024 08:47 AM TROY
== END 2024-06-19 07:49 | disposition home or self-care (01) ==
LOC: HO.MAMMO 07:48
PROVIDERS: PCP Internal Medicine; Visit Provider Internal Medicine
DX: Z12.31 Encounter for screening mammogram for malignant neoplasm of breast (principal)
CPT/HCPCS: 77063; 77067

== ENCOUNTER → 2024-06-19 08:00 | Outpatient (BNV) | payer BC, SELFPAY | PROVIDERS: PCP Internal Medicine; Visit Provider Internal Medicine | DX: Z12.31 Encounter for screening mammogram for malignant neoplasm of breast (principal) | CPT/HCPCS: 77063; 77067 ==

== ENCOUNTER 2024-07-06 09:14 | Outpatient (AMB) | payer BC, SELFPAY ==
--- NOTE | 2024-07-06 09:21 | MHC.OFFVIS ---
Vital Signs 07/06/24 09:22 Height 5 ft 10 in Weight 189 lb 9.561 oz BMI 27.2 BP 138/70 Blood Pressure Location Lt brachial Position Sitting Pulse 55 Pulse Source Monitor Intake Visit Reasons: 1 yr f/up Allergies No Known Allergies Allergy (Verified 01/19/24 00:52) Medication List - Last Reconciled 07/06/24 by Mehdi Hirsch MD aspirin 81 mg PO DAILY atorvastatin 20 mg PO BEDTIME cholecalciferol (vitamin D3) (Vitamin D3) 50 mcg PO DAILY fluoxetine 10 mg PO DAILY metoprolol succinate ER 50 mg PO DAILY metoprolol succinate ER 25 mg PO BEDTIME multivitamin 1 tab PO DAILY piroxicam 20 mg PO DAILY PRN HPI Comments Details: [facility] comes for follow-up. Since last year she has been doing well. No new symptoms of atrial fibrillation. Denies any prolonged irregular heartbeat or palpitation. Denies any flutter. Denies any exertional symptoms of chest pain or shortness of breath. Taking all her medications. Denies any heart failure symptoms. No lightheadedness, syncope. Blood pressures been generally well controlled on current therapy. She had 1 episode of atrial fibrillation december for which she presented emergency room after she had 3 beers at a [employer] party. Subsequently with rate control in the emergency room she converted back to sinus rhythm. Since I last saw her she is not retired as a stress level is improved significantly [facility] Medical History Paroxysmal atrial fibrillation Atrial fibrillation with rapid ventricular response HTN (hypertension) Surgical History No pertinent past surgical history Family History Mother Heart disease Social History Alcohol intake: current Alcohol intake frequency: a few times a week Patient Tobacco Use Status: Never used Tobacco Advance Directives Date on File: 07/27/21 service: No Current occupational status: retired Review of Systems Const Denies weakness ENT Denies dizziness Card Denies chest pain, Denies chest pain with activity, Denies syncope, Denies rapid heart rate, Denies pedal edema, Denies edema, Denies leg edema, Denies lightheadedness, Denies palpitations, Denies dyspnea, Denies dyspnea on exertion and Denies orthopnea Resp Denies cough, Denies dyspnea and Denies dyspnea on exertion GI Denies hematochezia and Denies change in stool character Musc Denies abnormal gait, Denies muscle cramps, Denies muscle weakness, Denies numbness, Denies radiating pain into limb and Denies tingling Neuro Denies abnormal gait, Denies dizziness, Denies syncope, Denies numbness, Denies tingling and Denies weakness Endo Denies palpitations Physical Exam Vital Signs: Last Vital Signs Pulse 55 07/06/24 09:22 BP 138/70 07/06/24 09:22 BMI result Body Mass Index 27.2 Const General: cooperative, comfortable, no acute distress, alert, awake, anxious and well groomed Nutritional Appearance: average body habitus Orientation/consciousness: patient oriented x3 Limitations: no limitations Neck Neck: Yes trachea midline, Yes supple and Yes no JVD Resp Effort & Inspection: normal respiratory effort Auscultation: clear to auscultation bilaterally Cardio Jugular venous distension: no JVD Palpation: normal PMI Rate: regular rate Rhythm: regular rhythm Heart sounds: S1 normal heart sound present, S2 normal heart sound present, no click, no gallops, no murmurs and no rubs GI Auscultation: normal bowel sounds Skin General skin exam: no rashes or lesions noted Neuro General: patient oriented x3 and no focal motor deficits Extrem General: Yes no clubbing, cyanosis or edema Office Procedures EKG Details: EKG shows normal sinus rhythm with PACs with aberrant conduction. [id number], Complete Assessment & Plan Assessment & Plan (1) Paroxysmal atrial fibrillation: Code(s): I48.0 - Paroxysmal atrial fibrillation Category: Medical Plan: Paroxysmal atrial fibrillation with 1 triggered event in December related to possibly use of alcohol. Since then she has had no other event. She is currently on increase metoprolol therapy. Tolerating well. Continue the same. No indication for antiarrhythmic drug therapy. Currently on low-dose aspirin therapy and we discussed strongly about oral anticoagulation therapy as a better therapy post from bleeding risk as well as thromboembolic protection. She is currently not wanting to start oral anticoagulation therapy. Continue avoid triggers. Advised to call me with worsening symptoms. (2) HTN (hypertension): Code(s): I10 - Essential (primary) hypertension Category: Medical Plan: Hypertension which is currently well optimized on current therapy. Importance of good blood pressure control was discussed. Stress mitigation strategies discussed advised to monitor blood pressure at home maintain a log. Continue maintain activity level as tolerated. Low-salt diet was discussed. Follow up in the clinic in 1 year's time, sooner p.r.n.. Thank you for allowing me to partake in his care Coding Level of Care Code Est Pt Level 4 (84424) Complex EM visit Add On G2211 Diagnoses Paroxysmal atrial fibrillation I48.0 HTN (hypertension) I10 CPT Codes EKG - CPT: 37143-[id number], Complete ([id number])
[2024-07-06 09:22] VITALS: BP 138/70; PULSE 55; BMI 27.2
== END 2024-07-06 09:43 | disposition home or self-care (01) ==
PROVIDERS: PCP Internal Medicine; Visit Provider Internal Medicine Cardiovascular Disease
DX: I48.0 Paroxysmal atrial fibrillation (principal); I10 Essential (primary) hypertension
CPT/HCPCS: 93010; 99214

== ENCOUNTER → 2024-07-06 09:14 | Outpatient (BNVA) | payer BC, SELFPAY | PROVIDERS: PCP Internal Medicine; Visit Provider Internal Medicine Cardiovascular Disease | DX: I48.0 Paroxysmal atrial fibrillation (principal); I10 Essential (primary) hypertension; Z79.82 Long term (current) use of aspirin; Z79.899 Other long term (current) drug therapy | CPT/HCPCS: 93005 ==

== ENCOUNTER 2024-10-13 09:02 | Outpatient (REF) | payer MEDICARE, SELFPAY ==
[2024-10-13 09:41] LABS: MANUAL DIFF FLAG NO
[2024-10-13 11:13] LABS: Alanine Aminotransferase 27 U/L (0-31); Albumin Level 4.2 g/dL (3.5-5.0); Alkaline Phosphatase 65 U/L (39-117); Anion Gap 16 (12-20); Aspartate Amino Transferase 34 U/L (5-31); Bilirubin Total 0.6 mg/dL (0.0-1.0); Blood Urea Nitrogen 12 mg/dL (9-16); Calcium 9.4 mg/dL (8.4-10.2); Carbon Dioxide 21 mmol/L (22-29); Chloride 108 mmol/L (96-108); Cholesterol 197 mg/dL (<200); Estimated Glomerular Filt Rate 55; Glucose Fasting 89 mg/dL (60-99); HDL Cholesterol 51 mg/dL (>40); LDL Cholesterol Calculated 113 mg/dL (<100); Potassium 4.3 mmol/L (3.3-5.1); Sodium 141 mmol/L (135-145); Total Protein 8.2 g/dL (6.5-8.0); Triglycerides 165 mg/dL (<150)
[2024-10-13 11:35] LABS: Basophils Percent Auto 0.6 % (0-2); Eosinophils Absolute Auto 0.1 X10*3/uL (0.0-0.4); Eosinophils Percent Auto 1.2 % (0-4); Hematocrit 41.7 % (37.0-47.0); Hemoglobin 13.7 g/dl (12.0-16.0); Imm Gran Abs Auto 0.02 X10*3/uL (0.00-0.03); Imm Gran Pct Auto 0.3 % (0.0-0.4); Lymphocytes Absolute Auto 1.9 X10*3/uL (1.2-4.9); Lymphocytes Percent Auto 27.9 % (20-40); Mean Corpuscular HGB Conc 32.9 g/dl (31.0-35.0); Mean Corpuscular Hemoglobin 30.8 pg (27.0-33.0); Mean Corpuscular Volume 93.7 fL (80.0-98.0); Mean Platelet Volume 9.4 fL (9.4-12.3); Monocytes Absolute Auto 0.5 X10*3/uL (0.1-1.2); Monocytes Percent Auto 7.2 % (2-11); Neutrophils Absolute Auto 4.2 x10*3/uL (2.0-8.3); Neutrophils Percent Auto 62.8 % (45-73); Platelet Count 330 X10*3/uL (160-400); Red Blood Count 4.45 X10*6/uL (4.20-5.50); Red Cell Distribution Width 13.1 % (11.0-16.0); White Blood Count 6.7 X10*3/uL (4.8-10.8)
== END 2024-10-13 09:03 | disposition home or self-care (01) ==
LOC: HO.LAB 09:02
PROVIDERS: PCP Internal Medicine; Visit Provider Internal Medicine
DX: I10 Essential (primary) hypertension (principal); E78.00 Pure hypercholesterolemia, unspecified; N18.9 Chronic kidney disease, unspecified; K57.92 Diverticulitis of intestine, part unspecified, without perforation or abscess without bleeding
CPT/HCPCS: 36415; 80053; 80061; 85025

== ENCOUNTER 2025-01-22 14:24 | Outpatient (AMB) | payer MEDICARE, SELFPAY ==
[2025-01-22 13:27] VITALS: BP 132/84; PULSE 61; TEMP 36.5; O2SAT 97; BMI 26.7
--- NOTE | 2025-01-22 13:27 | MHC.PC.OV ---
Vital Signs 01/22/25 13:27 Height 5 ft 10 in Weight 186 lb BMI 26.7 BP 132/84 Blood Pressure Location Lt brachial Position Sitting Pulse 61 Pulse Source Pulse Oximeter Temp 97.7 F Temp Source Axillary Pulse Oximetry (%) 97 Oxygen Delivery Method Room Air Intake Visit Reasons: Routine Dental Ceramist Assistant Required: No Accompanied by: Self / Same As Patient Allergies No Known Allergies Allergy (Verified 01/22/25 13:29) Tobacco use date assessed: 01/22/25 Fall risk assessment: No Falls in past year Last assessed Fall Risk: 01/22/25 Dental Screening Dental Screen Date: 01/22/25 Did you have a dental visit in the last 12 months?: Yes Did you have a dental problem in the last 6 months where you did not have access to dental care?: No HPI HPI Comments History of Present Illness Details Mercy is 64 year old female with a past medical history of atrial fibrillation, hld, anxiety/depression, CKD, allergies, diverticulosis presenting for follow up CV: on metoprolol, atorvastatin, ASA. Follows with cardiology Dr Hirsch once a year. Denies chest pain, exertional dyspnea. Anxiety/depression: on fluoxetine 20mg daily. She feels really well now that she is retired. Does not think she needs to be on the medication anymore. Would like to try to taper off. Mammo: 05/2024 Colononoscopy: Apr 2019 Pap: 2020 ROS CONSTITUTIONAL: Denies weight loss, fever and chills. HEENT: Denies changes in vision and hearing. RESPIRATORY: Denies SOB and cough. CV: Denies palpitations and CP GI: Denies abdominal pain, nausea, vomiting and diarrhea. : Denies dysuria and urinary frequency. MSK: Denies new myalgia and joint pain. SKIN: Denies rash and pruritus. NEUROLOGICAL: Denies headache PSYCHIATRIC: Denies recent changes in mood. PHYSICAL EXAM: GENERAL: Alert and oriented x 3. NAD EYES: EOMI. Anicteric. HENT: Moist mucous membranes. No scleral icterus. No cervical lymphadenopathy. LUNGS: Clear to auscultation bilaterally. CARDIOVASCULAR: Regular rate and rhythm. No murmur. No JVD. ABDOMEN: Soft, non-tender +bs EXTREMITIES: No edema. Non-tender. SKIN: No rashes or lesions. Warm. NEUROLOGIC: No focal neurological deficits. CN II-XII grossly intact PSYCHIATRIC: Cooperative. Appropriate mood and affect [facility] Medical History Paroxysmal atrial fibrillation Atrial fibrillation with rapid ventricular response HTN (hypertension) Surgical History No pertinent past surgical history Family History Mother Heart disease Mother Diabetes CHF (congestive heart failure) H/O heart surgery Father HTN (hypertension) Social History Housing: House Alcohol intake: current Alcohol intake frequency: a few times a week Patient Tobacco Use Status: Never used Tobacco e-Cigarette/Vaping Use: Never Used Advance Directives Date on File: 07/27/21 service: No Current occupational status: retired Cognitive needs: No Hearing needs: No Vision needs: Yes (rx glasses) Questionnaire PHQ-9 Over the last 2 weeks, how often have you been bothered by any of the following problems? 1. Little interest or pleasure in doing things: not at all 2. Feeling down, depressed, or hopeless: not at all 3. Trouble falling or staying asleep, or sleeping too much: not at all 4. Feeling tired or having little energy: not at all 5. Poor appetite or overeating: not at all 6. Feeling bad about yourself - or that you are a failure or have let yourself or your family down: not at all 7. Trouble concentrating on things, such as reading the newspaper or watching television: not at all 8. Moving or speaking so slowly that other people could have noticed. Or the opposite - being so fidgety or restless that you have been moving around a lot more than usual: not at all 9. Thoughts that you would be better off or of hurting yourself in some way: not at all Total score: 0 Depression Screening Interpretation: Negative Depression Screening Done: Yes 24037 - PHQ-9 Billing: Yes Source: Developed by Drs. Francis Morgan, Vicenta Garza, Dilshad Martinez and colleagues, with an educational jonathan from [employer]. Thrive Questionnaire Date Thrive assessed: 01/22/25 I am a: Patient Within the past 12 months, did the food you bought not last and you didn't have the money to get more?: Never true Within the past 12 months, did you worry whether your food would run out before you got money to buy more?: Never true Do you have trouble paying for medicines?: No Do you have trouble getting transportation to medical appointments?: No Do you have trouble paying your heating and electricity bill?: No Do you have trouble taking care of your child, family member or friend?: No Do you have trouble with day-to-day activities such as bathing, preparing meals, shopping, managing finances, etc.?: No Are you currently unemployed and looking for a job?: No Are you interested in more education?: No THRIVE Score: 0 AUDIT C Alcohol Use Questionnaire (AUDIT-C) 1. How often do you have a drink containing alcohol?: Monthly or less 2. How many drinks containing alcohol do you have on a typical day when you are drinking?: 1 or 2 3. How often do you have six or more drinks on one occasion?: Less than monthly Total Score: 2 LUCIANA-7 AMB Questionnaire LUCIANA-7 Date LUCIANA - 7 assessed: 01/22/25 Feeling nervous, anxious, or on edge: 0 = Not at all Not being able to stop or control worryin = Not at all Worrying too much about different things: 0 = Not at all Trouble relaxin = Not at all Being so restless that it is hard to sit still: 0 = Not at all Becoming easily annoyed or irritable: 0 = Not at all Feeling afraid as if something awful might happen: 0 = Not at all Total LUCIANA-7 score (0-4 normal; 5-9 mild; 10-14 moderate; 15-21 severe): 0 Source: Developed by Drs. Francis Morgan, Vicenta Garza, Dilshad Martinez and colleagues, with an educational jonathan from [employer]. Physical exam (Primary Care) Vital Signs: Last Vital Signs Temp 97.7 F 01/22/25 13:27 Pulse 61 01/22/25 13:27 BP 132/84 01/22/25 13:27 Pulse Ox 97 01/22/25 13:27 Oxygen Delivery Method Room Air 01/22/25 13:27 BMI result Body Mass Index 26.7 Tobacco/Smoking Status: Tobacco use Status Tobacco use date assessed 01/22/25 01/22/25 13:31 Patient Tobacco Use Status Never used Tobacco 01/22/25 13:31 e-Cigarette/Vaping Use Never Used 01/22/25 13:31 PHQ-9: PHQ-9 Score PHQ-9: Total score 0 01/22/25 15:04 Depression Screening Interpretation: Negative Thrive Assessment: Date of Thrive Assessment Date Thrive assessed 01/22/25 01/22/25 13:31 Coding Level of Care Code New Pt Level 4 (32776) Complex EM visit Add On G2211 Diagnoses Primary hypertension I10 Hypertension type: primary hypertension Paroxysmal atrial fibrillation I48.0 History of depression Z86.59 Additional Codes PHQ-9 - 40365 - PHQ-9 Billing: Yes ([id number]) Assessment & Plan Assessment & Plan (1) HTN (hypertension): Code(s): I10 - Essential (primary) hypertension Category: Medical Qualifiers: Hypertension type: primary hypertension Qualified Code(s): I10 - Essential (primary) hypertension (2) Paroxysmal atrial fibrillation: Code(s): I48.0 - Paroxysmal atrial fibrillation Category: Medical (3) History of depression: Code(s): Z86.59 - Personal history of other mental and behavioral disorders Category: Medical Plan 64 year old to establish care Past medical, surgical, social reviewed history of depression, anxiety-taper prozac as noted referral supply planner Orders: Orders Complete Blood Count Auto Diff 4 Months I10 - Essential (primary) hypertension, I48.0 - Paroxysmal atrial fibrillation, Z13.0 - Encounter for screening for diseases of the blood and blood-forming organs and certain disorders involving the immune mechanism, Z13.228 - Encounter for screening for other metabolic disorders, Z86.59 - Personal history of other mental and behavioral disorders Comprehensive Met. Panel 4 Months I10 - Essential (primary) hypertension, I48.0 - Paroxysmal atrial fibrillation, Z13.0 - Encounter for screening for diseases of the blood and blood-forming organs and certain disorders involving the immune mechanism, Z13.228 - Encounter for screening for other metabolic disorders, Z86.59 - Personal history of other mental and behavioral disorders Vitamin D 25-OH (D2 and D3) 4 Months I10 - Essential (primary) hypertension, I48.0 - Paroxysmal atrial fibrillation, Z13.0 - Encounter for screening for diseases of the blood and blood-forming organs and certain disorders involving the immune mechanism, Z13.228 - Encounter for screening for other metabolic disorders, Z86.59 - Personal history of other mental and behavioral disorders TSH reflex Free T4 4 Months I10 - Essential (primary) hypertension, I48.0 - Paroxysmal atrial fibrillation, Z13.0 - Encounter for screening for diseases of the blood and blood-forming organs and certain disorders involving the immune mechanism, Z13.228 - Encounter for screening for other metabolic disorders, Z86.59 - Personal history of other mental and behavioral disorders Lipid Panel 4 Months I10 - Essential (primary) hypertension, I48.0 - Paroxysmal atrial fibrillation, Z13.0 - Encounter for screening for diseases of the blood and blood-forming organs and certain disorders involving the immune mechanism, Z13.228 - Encounter for screening for other metabolic disorders, Z86.59 - Personal history of other mental and behavioral disorders Vitamin B12 and Folate 4 Months I10 - Essential (primary) hypertension, I48.0 - Paroxysmal atrial fibrillation, Z13.0 - Encounter for screening for diseases of the blood and blood-forming organs and certain disorders involving the immune mechanism, Z13.228 - Encounter for screening for other metabolic disorders, Z86.59 - Personal history of other mental and behavioral disorders Referrals RUBBER AND PLASTICS WORKER Referral Z12.4 - Encounter for screening for malignant neoplasm of cervix Medications: New fluoxetine Take one tablet oral once daily for 7 days then take one half tab (5mg) oral daily for 7 days then take one half tab (5mg) every other day for 14 days 10 mg PO DAILY 15 tabs 0RF fluoxetine Take one tablet oral once daily for 7 days then take one half tab (5mg) oral daily for 7 days then take one half tab (5mg) every other day for 14 days 10 mg PO DAILY 15 tabs 0RF
--- OUTSIDE RECORDS SUMMARY | 2025-01-22 14:28 | XMS_ITS | Patient Health Record ---
[facility] Organization [facility] Address [address] [place] [address] Care Team Providers Care Manager Combination Name Role Phone Dayron Jameson MD Primary Care Provider Navdeep Rosales Unavailable [phone] Reason For Referral No Information Medications Medication SIG (Take, Route, Fr equency, Duration) Notes Start Date End Date Status Lisinopril 5 MG 1 tablet Orally Once a day for 30 day(s) Active Piroxicam 20 MG 1 capsule with food Orally Once a day for 30 day(s) Not-Taking Tylenol Active Problems Problem Type SNOMED Code ICD Code Onset Dates Problem Status W/U Status Risk Notes Problem Verruca plantaris (06160686) 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) Active confirmed Problem Disorder of joint of ankle and/or foot (770068579) Arthritis - Degenerative (719.97) Active confirmed Problem Neuralgia - Neuritis (729.2) Active confirmed Problem Congenital pes planus (65438034) Flat Foot, Congenital (754.61) Active confirmed Problem Pain in limb (91242976) Pain in Limb (729.5) Active confirmed Plan Of Treatment Pending Test Test Name Order Date X ray : Foot, right 3V 07/29/2014 [id number] Destruction, 1-14 06/26/2012 [id number] Destruction, 1-14 08/12/2012 35977, [id number]/INJECT, JOINT/BURSA 1 09/29/2013 11260, J0702- Neuroma/Injection 07/29/20 38833, J0702- Neuroma/Injection 06/26/20 12 Insurance Providers Payer Name Payer Address Payer Phone Subscriber Number Group Number Insured Name Patient Relationship to Insured Coverage Start Date Coverage End Date [facility] [address] [place] [address] [id number] [employer]onsalo Mercy Self - patient is the insured Medical (General) History Medical History History ICD Code mumps measles chicken pox Surgical History Surgery Date(Month/Year) foot surgery
== END 2025-01-22 15:28 | disposition home or self-care (01) ==
LOC: HO.HMCHD 14:26
PROVIDERS: PCP Internal Medicine; Visit Provider Internal Medicine
DX: I10 Essential (primary) hypertension (principal); I48.0 Paroxysmal atrial fibrillation; Z86.59 Personal history of other mental and behavioral disorders

== ENCOUNTER → 2025-01-22 14:24 | Outpatient (BNVA) | payer MEDICARE, SELFPAY | PROVIDERS: PCP Internal Medicine; Visit Provider Internal Medicine | DX: I12.9 Hypertensive chronic kidney disease with stage 1 through stage 4 chronic kidney disease, or unspecified chronic kidney disease (principal); N18.9 Chronic kidney disease, unspecified; I48.0 Paroxysmal atrial fibrillation; F41.8 Other specified anxiety disorders; E78.5 Hyperlipidemia, unspecified; Z86.59 Personal history of other mental and behavioral disorders; Z79.82 Long term (current) use of aspirin; Z79.899 Other long term (current) drug therapy | CPT/HCPCS: 96127; 99202 ==

== ENCOUNTER 2025-06-08 13:43 | Outpatient (AMB) | payer MEDICARE, SELFPAY ==
--- NOTE | 2025-06-07 13:27 | MHC.PC.OV ---
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 Required: No Accompanied by: Self / Same As Patient Allergies No Known Allergies Allergy (Verified 01/22/25 13:29) Medication List - Last Reconciled 06/08/25 by KWADWO Valladares amoxicillin 875 mg PO BID aspirin 81 mg PO DAILY atorvastatin 20 mg PO BEDTIME cholecalciferol (vitamin D3) (Vitamin D3) 50 mcg PO DAILY codeine-guaifenesin 10-100 mg/5 mL 5 mL PO Q6H PRN fluoxetine 10 mg PO DAILY metoprolol succinate ER 25 mg PO BEDTIME metoprolol succinate ER 50 mg PO DAILY multivitamin 1 tab PO DAILY Tobacco use date assessed: 06/08/25 Fall risk assessment: No Falls in past year Last assessed Fall Risk: 06/08/25 Dental Screening Dental Screen Date: 06/08/25 Did you have a dental visit in the last 12 months?: Yes Did you have a dental problem in the last 6 months where you did not have access to dental care?: No HPI HPI Comments History of Present Illness Details The patient is a 65-year-old female with Afib, HTN, HLD, MDD/Anxiety, CKD, AR and diverticulosis presenting with symptoms of sinusitis and persistent cough. The symptoms began approximately two weeks ago with sneezing, which was initially ignored. Over the past week, the symptoms have worsened, leading to significant discomfort and sleep disturbances due to incessant coughing and sinus congestion. The patient reports using a nasal irrigation device, which has provided some relief. She has been taking [facility] nighttime cough syrup, which resulted in an elevated pulse rate, prompting her to contact her supervisor mending. The supervisor mending advised discontinuing the cough syrup, and the patient has not taken it since Saturday. She denies fever. She had a sore throat but that resolved..The patient denies fever and headache but reports a sore throat that has since resolved. She experiences white mucus production during nasal irrigation and has pulled a muscle due to persistent coughing. She states she usually used Robitussin with codeine for the cough in the past. Patient was informed and verbally consented to the use of an ambient scribe for clinic note documentation during this visit. FOR[facility]LY [facility], [facility] Medical History (Updated 06/08/25 @ 14:53 by KWADWO Valladares) Acute sinusitis Atrial fibrillation with rapid ventricular response HTN (hypertension) Paroxysmal atrial fibrillation Surgical History No pertinent past surgical history Family History (Updated 06/08/25 @ 14:05 by Mercy Pearce MA) Mother Heart disease Mother Diabetes CHF (congestive heart failure) H/O heart surgery Father HTN (hypertension) Social History Housing: House Alcohol intake: current Alcohol intake frequency: a few times a week Patient Tobacco Use Status: Never used Tobacco e-Cigarette/Vaping Use: Never Used Advance Directives Date on File: 07/27/21 service: No Current occupational status: retired Cognitive needs: No Hearing needs: No Vision needs: Yes (rx glasses) Questionnaire PHQ-9 Over the last 2 weeks, how often have you been bothered by any of the following problems? 1. Little interest or pleasure in doing things: not at all 2. Feeling down, depressed, or hopeless: not at all 3. Trouble falling or staying asleep, or sleeping too much: not at all 4. Feeling tired or having little energy: not at all 5. Poor appetite or overeating: not at all 6. Feeling bad about yourself - or that you are a failure or have let yourself or your family down: not at all 7. Trouble concentrating on things, such as reading the newspaper or watching television: not at all 8. Moving or speaking so slowly that other people could have noticed. Or the opposite - being so fidgety or restless that you have been moving around a lot more than usual: not at all 9. Thoughts that you would be better off or of hurting yourself in some way: not at all Total score: 0 Source: Developed by Drs. Francis Morgan, Vicenta Garza, Dilshad Martinez and colleagues, with an educational jonathan from [employer]. Thrive Questionnaire Date Thrive assessed: 06/08/25 I am a: Patient Within the past 12 months, did the food you bought not last and you didn't have the money to get more?: Never true Within the past 12 months, did you worry whether your food would run out before you got money to buy more?: Never true Do you have trouble paying for medicines?: No Do you have trouble getting transportation to medical appointments?: No Do you have trouble paying your heating and electricity bill?: No Do you have trouble taking care of your child, family member or friend?: No Do you have trouble with day-to-day activities such as bathing, preparing meals, shopping, managing finances, etc.?: No Are you currently unemployed and looking for a job?: No Are you interested in more education?: No THRIVE Score: 0 AUDIT C Alcohol Use Questionnaire (AUDIT-C) 1. How often do you have a drink containing alcohol?: Monthly or less 2. How many drinks containing alcohol do you have on a typical day when you are drinking?: 1 or 2 3. How often do you have six or more drinks on one occasion?: Less than monthly Total Score: 2 LUCIANA-7 AMB Questionnaire LUCIANA-7 Date LUCIANA - 7 assessed: 06/08/25 Feeling nervous, anxious, or on edge: 0 = Not at all Not being able to stop or control worryin = Not at all Worrying too much about different things: 0 = Not at all Trouble relaxin = Not at all Being so restless that it is hard to sit still: 0 = Not at all Becoming easily annoyed or irritable: 0 = Not at all Feeling afraid as if something awful might happen: 0 = Not at all Total LUCIANA-7 score (0-4 normal; 5-9 mild; 10-14 moderate; 15-21 severe): 0 Source: Developed by Drs. Francis Morgan, Vicenta Garza, Dilshad Martinez and colleagues, with an educational jonathan from [employer]. Review of Systems Const Details: CONSTITUTIONAL Denies fever, reports sleep disturbances due to coughing. HEAD/NECK Negative EAR/NOSE/MOUTH/THROAT Reports sneezing, sore throat resolved, denies headache. Nasal congestion RESPIRATORY Reports persistent cough, white mucus production, denies dyspnea. CARDIOVASCULAR Tachycardia NEUROLOGICAL Negative PSYCHIATRIC Negative Physical exam (Primary Care) Vital Signs: Last Vital Signs Temp 97 F 06/08/25 13:57 Pulse 95 06/08/25 13:57 BP 134/80 06/08/25 13:57 Pulse Ox 98 06/08/25 13:57 Oxygen Delivery Method Room Air 06/08/25 13:57 BMI result Body Mass Index 25.8 GENERAL Well developed, Well nourished, in no apparent distress HEENT Head-Normocephalic Eyes- PERRLA, EOMI, Conjuctiva clear, lids WNL Ears- Canals clear, TMs WNL Throat- erythema, no exudate, post nasal drip Sinus- tender to palpation Mouth/Throat-No lesions, no erythema, no exudate Neck- Supple, No lymphadenopathy, thyroid WNL RESPIRATORY Normal I:E, Rhonchi without rales or wheezes CARDIOVASCULAR Tachycardia with normal rhythm, No murmurs or rubs NEUROLOGICAL Gait normal PSYCHIATRIC Oriented to person, place and time Mood and affect WNL Appearance WNL Speech WNL Thought processes WNL Tobacco/Smoking Status: Tobacco use Status Tobacco use date assessed 06/08/25 06/07/25 13:29 Patient Tobacco Use Status Never used Tobacco 06/07/25 13:29 e-Cigarette/Vaping Use Never Used 06/07/25 13:29 PHQ-9: PHQ-9 Score PHQ-9: Total score 0 06/08/25 14:05 Thrive Assessment: Date of Thrive Assessment Date Thrive assessed 06/08/25 06/07/25 13:29 Coding Level of Care Code Established Pt Est Pt Level 3 (52993) Patient Type Established Diagnoses Acute sinusitis J01.90 Cough R05.9 Tachycardia R00.0 Time Spent (min) 25 Comment Time spent on chart review, H&P, patient education and orders. Assessment & Plan Assessment & Plan (1) Acute sinusitis: Code(s): J01.90 - Acute sinusitis, unspecified Category: Medical Plan: The patient will be prescribed amoxicillin 875 mg twice daily for 7 days to address the sinus infection. The use of nasal irrigation is recommended to continue for symptomatic relief. Patient was encouraged to increase fluid intake. Patient to follow up as needed if symptoms persist or worsen. (2) Cough: Code(s): R05.9 - Cough, unspecified Plan: Cough syrup with codeine will be prescribed for nighttime use to alleviate the cough and improve sleep quality. The patient is advised to avoid daytime use to prevent drowsiness. Patient to follow up as needed if symptoms persist or worsen. (3) Tachycardia: Code(s): R00.0 - Tachycardia, unspecified Plan: The elevated pulse rate was attributed to the use of [facility] nighttime cough syrup, which has been discontinued. The patient is advised to monitor her pulse and contact her supervisor mending if the elevated rate persists. BP today was 134/80. Plan I discussed with the patient the likely diagnosis of sinusitis and the plan to treat it with amoxicillin for 7 days. We also talked about using cough syrup with codeine at night to manage her cough and improve sleep. The patient was advised to monitor her pulse and contact her supervisor mending if the elevated rate persists. Medications: New codeine-guaifenesin 10-100 mg/5 mL 5 mL PO Q6H PRN 120 mL 0RF cough amoxicillin 875 mg PO BID 7 tabs 0RF sinus infection Patient Instructions: - Take amoxicillin 500 mg twice daily for 7 days. - Use cough syrup with codeine at night to help with sleep. - Continue using nasal irrigation with Navage for relief. - Monitor pulse rate and contact supervisor mending if it remains elevated.
[2025-06-08 13:57] VITALS: BP 134/80; PULSE 95; TEMP 36.1; O2SAT 98; BMI 25.8
--- OUTSIDE RECORDS SUMMARY | 2025-06-08 16:38 | XMS_ITS | Patient Health Record ---
Author [facility] Address [address] [place] [address] Care Team Providers Care Blower Mechanic Name Role Phone Dayron Jameson MD Primary Care Provider Unavaila Navdeep Winslow Unavailable [phone] Reason For Referral No Information Medications Medication SIG (Take, Route, Fr equency, Duration) Notes Start Date End Date Status Lisinopril 5 MG 1 tablet Orally Once a day; Duration: 30 day(s) Active Piroxicam 20 MG 1 capsule with food Orally Once a day; Duration: 30 day(s) Not-T aking Tylenol Active Problems Problem Type SNOMED Code ICD Code Onset Dates Problem Status W/U Status Risk Notes Problem Verruca plantaris (97273448) 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) Active confirmed Problem Disorder of joint of ankle and/or foot (723422289) Arthritis - Degenerative (719.97) Active confirmed Problem Neuralgia - Neuritis (729.2) Active confirmed Problem Congenital pes planus (95055266) Flat Foot, Congenital (754.61) Active confirmed Problem Pain in limb (94054745) Pain in Limb (729.5) Active confirmed Plan Of Treatment Pending Test Test Name Order Date X ray : Foot, right 3V 07/29/2014 [id number] Destruction, 1-14 06/26/2012 [id number] Destruction, 1-14 08/12/2012 17160, [id number]/INJECT, JOINT/BURSA 1 09/29/2013 74966, J0702- Neuroma/Injection 12/04/20 14 79433, J0702- Neuroma/Injection 06/26/20 12 Insurance Providers Payer Name Payer Address Payer Phone Subscriber Number Group Number Insured Name Patient Relationship to Insured Coverage Start Date Coverage End Date [facility] [address] [place] [address] [id number] [facility] Brush Self - patient is the insured Medical (General) History Medical History History ICD Code mumps measles chicken pox Surgical History Surgery Date(Month/Year) foot surgery
--- OUTSIDE RECORDS SUMMARY | 2025-06-08 16:38 | XMS_ITS | Patient Health Record ---
Author Organization [facility] Address [address] [place] [address] Care Team Providers Care Technical Support Intern Name Role Phone Trino (RETIRED) Dayron HARRISON Primary Care Provide r Unavailable HarrisonFrancis Unavailable [phone] Reason For Referral No Information Medications Medication SIG (Take, Route, Frequency, Duration) Notes Start Date End Date Status Vitamin D3 2000 UNIT 1 capsule Orally On ce a day; Duration: 30 day(s) Active Centrum - as directed Orally o nce a day Active Piroxicam 10 MG 1 capsule with food Orally prn Active Aspir-Low 81 MG 1 tablet Orally Once a day; Duration: 30 day(s) Active Lipitor 10 MG 1 tablet Orally Once a day; Duration: 30 day(s) Active Metoprolol Succinate 50 MG 1 capsule Ora lly Once a day; Duration: 30 day(s) Active Immunizations Vaccine Route Administration Date Status Comme nts Influenza Unknown 06/11/2018 Administered Social History Tobacco Use: Social History Observation Description Date Details (start date - stop date) Never Smoker NA - NA Tobacco Use/Smoking Question Answer Notes Patient is a nonsmoker Alcohol Screen Question Answer Notes Did you have a drink contain ing alcohol in the past year? Yes How often did you have a dri nk containing alcohol in the past year? 2 to 3 times a week (3 points) How many drinks did you have on a typical day when you were drinking in the past year? 1 or 2 drinks (0 point) How often did you have 6 or more drinks on one occasion in the past year? Never (0 point) Points 3 Interpretation Positive Section Notes: Nonsmoker; occ. alcohol Problems Problem Type SNOMED Code ICD Code Onset Dates Problem Status W/U Status Risk Notes Problem Abnormal feces (923297406) Heme + stool (R19.5) Active confirmed Problem Essential hypertension (06690960) Hypertension, unspecified type (I10) Active confirmed Plan Of Treatment Future Test Test Name Order Date COLONOSCOPY 04/30/2019 Insurance Providers Payer Name Payer Address Payer Phone Subscriber Number Group Number Insured Name Patient Relationship to Insured Coverage Start Date Coverage End Date [facility] [address] [place], [place] [id number] ANA WILLETT Self - patient is the insured Medical (General) History Medical History History ICD Code Denies CA,DM,CVA,Lung disease,renal dise ase Hypertension Atrial fibrillation-sees Dr. Hirsch NegLashell colonoscopy in 09/2009 Hyperlipidemia Surgical History Surgery Date(Month/Year) Bunionectomy
--- OUTSIDE RECORDS SUMMARY | 2025-06-08 16:38 | XMS_ITS | Clinical Summary ---
Author Organization [facility] Address [address] [place] [address] Care Team Providers Care Database Administrator Name Role Phone Unavailable Primary Care Provider Unavailabl e Immunizations Immunization Administration Dates Next Due Pfizer Covid-19 Vaccine 12+ 11/17/2024 Social History Tobacco Use Types Packs/Day Years Used Date Smoking Tobacco: Never Assessed Comments Unknown Sex and Gender Information Value Date Recorded Sex Assigned at Female 11/17/2024 1:51 PM EDT Legal Sex Female 1:48 PM EDT Gender Identity Female 11/17/2024 1:51 PM EDT Sexual Orientation Don't know 11/17/2024 1: 51 PM EDT Plan of Treatment Health Maintenance Due Date Last Done Comments CT Colonography 1959 Colonoscopy 1959 Colorectal Cancer Screening 1959 Depression Screening 1959 FIT DNA/Cologuard 1959 FIT 1959 FOBT 1959 SDOH Screening 1959 Sigmoidoscopy 1959 Alcohol/Substance Use Screening 1971 Tobacco Screening 1971 Hepatitis C Screening 1977 DTaP/Tdap/Td Vaccines (1 - Tdap) 1978 Mammogram 1999 Pneumococcal Vaccine: 50+ Ye ars (1 of 1 - PCV) 2009 Zoster Vaccines (1 of 2) 2009 Influenza Vaccine (#1) 2025 COVID-19 Vaccine (2 - 2023-2 5 season) 2025 11/17/2024 RSV Patients and Pa tients Aged 60 years or older (1 - 1-dose 75+ series) 2034 HIB Vaccines Aged Out No longer eligi ble based on patient's age to complete this topic HPV Vaccines Aged Out No longer eligi ble based on patient's age to complete this topic Hepatitis A Vaccines Aged Out No long er eligible based on patient's age to complete this topic Hepatitis B Vaccines Aged Out No long er eligible based on patient's age to complete this topic IPV Vaccines Aged Out No longer eligi ble based on patient's age to complete this topic Meningococcal B Vaccine Aged Out No l onger eligible based on patient's age to complete this topic Meningococcal Vaccine Aged Out No krzysztof claudio eligible based on patient's age to complete this topic RSV under 20 months Aged Out No longe r eligible based on patient's age to complete this topic Rotavirus Vaccines Aged Out No longer eligible based on patient's age to complete this topic Insurance [facility]
== END 2025-06-08 14:32 | disposition home or self-care (01) ==
LOC: HO.HMCHD 13:43
PROVIDERS: PCP Physician Assistant Medical; Visit Provider Physician Assistant Medical
DX: J01.90 Acute sinusitis, unspecified (principal); R05.9 Cough, unspecified; R00.0 Tachycardia, unspecified

== ENCOUNTER → 2025-06-08 13:43 | Outpatient (BNVA) | payer MEDICARE, SELFPAY | PROVIDERS: PCP Physician Assistant Medical; Visit Provider Physician Assistant Medical | DX: R05.8 Other specified cough (principal); J01.90 Acute sinusitis, unspecified; R00.0 Tachycardia, unspecified | CPT/HCPCS: 96127; 99212 ==

== ENCOUNTER → 2025-06-23 13:55 | Outpatient (REF) | payer MEDICARE, SELFPAY ==
--- NOTE | 2025-06-23 13:59 | CA_ITS ---
Transthoracic Echocardiogram Patient (Last, First, Middle): Mercy Brush, Gender: Female Date of : 1960 Age: 65 Procedure Date: 06/23/2025 Procedure Type: Transthoracic Echocardiogram Location: OP Height: 180.34 cm Weight: 81.65 kg BSA: 2.02 m2 Heart Rate: bpm BP: 132 / 84 mmHg Plant Supervisor: TO Referring MD: Mehdi Hirsch MD Symptoms: I48.0 - Paroxysmal atrial fibrillation Study Quality: Adequate ECG Rhythm: Sinus Conclusions: - The left ventricular systolic function is normal. The calculated ejection fraction is 59% by biplane method. - No obvious valvular pathology seen on this study. Findings Left Ventricle Normal left ventricular cavity size. There is normal left ventricular wall thickness. The left ventricular systolic function is normal. The calculated ejection fraction is 59% by biplane method. There is no evidence of regional wall motion abnormalities. Diastolic function is normal for age. Right Ventricle Normal right ventricular cavity size and systolic function. Atria The left atrium is mildly dilated. The right atrium is normal in size. Aortic Valve There is a normal trileaflet aortic valve. There is no aortic valve stenosis. There is no aortic valve regurgitation. Mitral Valve The mitral valve appears normal. There is mild mitral valve regurgitation. There is no mitral valve stenosis. Pulmonic Valve The pulmonic valve is likely normal. Tricuspid Valve Normal tricuspid valve structure. There is trace tricuspid valve regurgitation. There is no evidence of pulmonary hypertension. Great Vessels The asc aorta is normal in size. Venous The inferior vena cava is normal in size and collapses greater than 50% with inspiration. Pericardium/Pleural There is no evidence of pericardial effusion. Prior Study Comparison No significant change compared to prior study dated: 12/25/2021. Recommendations, Care & Conclusions No obvious valvular pathology seen on this study. Measurements 2D Linear Measurements IVSd: 0.92 0.6-0.9/0.6-1.0 cm LVIDd: 5.32 3.9-5.3/4.2-5.9 cm LVIDd Index: 2.63 2.4-3.2/2.2-3.1 cm/m2 LVIDs: 3.48 2.0-3.6 cm LVPWd: 0.90 0.7-1.1 cm LA Diam: 4.00 2.7-3.8/3.0-4.0 cm LAIDs Index: 1.98 1.5-2.3 cm/m2 LV Mass: 221.49 67-162/88-224 g LV Mass Index: 109.65 43-95/49-115 g/m2 LVOT Diam: 2.10 3.0+(-)1.3 cm 2D Systolic Function EF 4C: 63.30 >55% EF 2C: 56.60 >55% EF BiP: 58.60 >55% Mitral Valve MV Pk E: 0.51 MV PK A: 0.35 MV Decel Time: 157.00 E/A: 1.40 E'Lateral: 8.16 E'Medial: 6.42 E/E' Med: 7.90 E/E' Lat: 6.20 PHT: 46.00 MVA PHT: 4.78 Decel Refugio: 3.22 Aortic Valve AoV Pk Lawrence: 1.28 AoV Mn Lawrence: 0.81 AoV VTI: 0.25 AoV Pk Grad: 7.00 Aov Mn Grad: 3.00 KAT Cont.VTI: 3.09 LVOT LVOT Pk Lawrence: 1.15 LVOT Mn Lawrence: 0.69 LVOT VTI: 0.23 LVOT Pk Grad: 5.00 LVOT Mn Grad: 2.00 LVOT Diam: 2.10 LVOT Area: 3.46 Diastolic Function MV Pk E: 0.51 MV Pk A: 0.35 E/A: 1.40 E'Medial: 6.42 E/E' Med: 7.90 E' Laterial: 8.16 E/E' Lat: 6.20 Right Ventricle TAPSE (mm): 24.40 TVS' Lawrence: 16.60 Tricuspid Valve TR Pk Lawrence: 1.74 TR Pk Grad: 12.00 RA Press: 3.00 RVSP: 15.00 Great Vessels Aorta Sinus of Valsalva: 3.56 2.0-3.[address] Ridge: 2.84 1.7-3.4 cm Ao Asc: 3.50 2.1-3.4 cm Ao Arch: 3.30 Updated in Other Vendor System with Status of Final Edil Bowman MD electronically signed on 06/25/2025 12:44:19 PM with status of Final
--- OUTSIDE RECORDS SUMMARY | 2025-06-23 17:51 | XMS_ITS | Patient Health Record ---
[facility] Address [address] [place] [address] Care Team Providers Care High Heel Builder Name Role Phone Dayron Jameson MD Primary Care Provider Unavaila Navdeep Winslow Unavailable [phone] Reason For Referral No Information Medications Medication [...] W/U Status Risk Notes Problem Verruca plantaris (67452354) 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) Active confirmed Problem Disorder of joint of ankle and/or foot (320701524) Arthritis - Degenerative (719.97) Active confirmed Problem Neuralgia - Neuritis (729.2) Active confirmed Problem Congenital pes planus (99839987) Flat Foot, Congenital (754.61) Active confirmed Problem Pain in limb (77522478) Pain in Limb (729.5) Active confirmed Plan Of Treatment Pending Test Test Name Order Date X ray : Foot, right 3V 07/29/2014 44937-Oxkb Destruction, 1-14 06/26/2012 21441-Zdpr Destruction, 1-14 08/12/2012 23753, [id number]/INJECT, JOINT/BURSA 1 09/29/2013 87219, J0702- Neuroma/Injection 12/04/20 14 93365, J0702- Neuroma/Injection 06/26/20 12 Insurance Providers Payer Name Payer Address Payer Phone Subscriber Number Group Number Insured Name Patient Relationship to Insured Coverage Start Date Coverage End Date [facility] [address] [place] [address] [id number] Mercy Brush Self - patient is the insured Medical (General) History Medical History History ICD Code mumps measles chicken pox Surgical History Surgery Date(Month/Year) foot surgery
--- OUTSIDE RECORDS SUMMARY | 2025-06-23 17:51 | XMS_ITS | Clinical Summary ---
Author Organization [employer] Address [address] [place] [address] Care Team Providers Care Duct Layer Supervisor Name Role Phone Unavailable Primary Care Provider [...] patient's age to complete this topic Insurance [facility]
--- OUTSIDE RECORDS SUMMARY | 2025-06-23 17:51 | XMS_ITS | Patient Health Record ---
Author Organization [facility] Address [address] [place] [address] Care Team Providers Care Dance Artist Name Role Phone Trino (RETIRED) Dayron HARRISON Primary Care Provide r Unavailable HarrisonFrancis Unavailable [phone] Reason For Referral No Information Medications Medication [...] W/U Status Risk Notes Problem Abnormal feces (567534872) Heme + stool (R19.5) Active confirmed Problem Essential hypertension (88059575) Hypertension, unspecified type (I10) Active confirmed Plan Of Treatment Future Test Test Name Order Date COLONOSCOPY 04/30/2019 Insurance Providers Payer Name Payer Address Payer Phone Subscriber Number Group Number Insured Name Patient Relationship to Insured Coverage Start Date Coverage End Date [facility] [address] [place], [place] [id number] ANA WILLETT Self - patient is the insured Medical (General) History Medical History History ICD Code Denies [place],DM,CVA,Lung disease,renal dise ase Hypertension Atrial fibrillation-sees Dr. Hirsch NegLashell colonoscopy in 09/2009 Hyperlipidemia Surgical History Surgery Date(Month/Year) Bunionectomy
== END ==
LOC: HO.CARD 13:55
PROVIDERS: Visit Provider Internal Medicine Cardiovascular Disease
DX: I48.0 Paroxysmal atrial fibrillation (principal)
CPT/HCPCS: 93306

== ENCOUNTER → 2025-06-23 13:59 | Outpatient (BNV) | payer MEDICARE, SELFPAY | PROVIDERS: Visit Provider Internal Medicine | DX: I34.0 Nonrheumatic mitral (valve) insufficiency (principal); I48.0 Paroxysmal atrial fibrillation | CPT/HCPCS: 93306 ==

== ENCOUNTER 2025-07-05 07:37 | Outpatient (REF) | payer MEDICARE, SELFPAY ==
--- OUTSIDE RECORDS SUMMARY | 2025-07-05 07:41 | XMS_ITS | Clinical Summary ---
Author Organization [employer] [facility] Address [address] [place] [address] Care Team Providers Care Research And Evaluation Analyst Name Role Phone Unavailable Primary Care Provider [...] patient's age to complete this topic Insurance [facility]
--- OUTSIDE RECORDS SUMMARY | 2025-07-05 07:41 | XMS_ITS | Patient Health Record ---
Author Organization [facility] Address [address] [place] [address] Care Team Providers Care Motor Vehicle License Clerk Name Role Phone Trino (RETIRED) Dayron HARRISON Primary Care Provide r Unavailable HarrisonFrancis Unavailable [phone] Reason For Referral No Information Medications Medication [...] W/U Status Risk Notes Problem Abnormal feces (185456272) Heme + stool (R19.5) Active confirmed Problem Essential hypertension (65240581) Hypertension, unspecified type (I10) Active confirmed Plan Of Treatment Future Test Test Name Order Date COLONOSCOPY 04/30/2019 Insurance Providers Payer Name Payer Address Payer Phone Subscriber Number Group Number Insured Name Patient Relationship to Insured Coverage Start Date Coverage End Date [facility] [address] [place], [place] [id number] [phone] [id number] ANA WILLETT Self - patient is the insured Medical (General) History Medical History History ICD Code Denies [place],DM,CVA,Lung disease,renal dise ase Hypertension Atrial fibrillation-sees Dr. Hirsch NegLashell colonoscopy in 09/2009 Hyperlipidemia Surgical History Surgery Date(Month/Year) Bunionectomy
--- OUTSIDE RECORDS SUMMARY | 2025-07-05 07:41 | XMS_ITS | Patient Health Record ---
[facility] Address [address] [place] [address] Care Team Providers Care Compound Filler Name Role Phone Dayron Jameson MD Primary Care Provider Unavaila Navdeep Winslow Unavailable [phone] Reason For Referral No Information Medications Medication [...] W/U Status Risk Notes Problem Verruca plantaris (49830619) 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) Active confirmed Problem Disorder of joint of ankle and/or foot (266778612) Arthritis - Degenerative (719.97) Active confirmed Problem Neuralgia - Neuritis (729.2) Active confirmed Problem Congenital pes planus (01080590) Flat Foot, Congenital (754.61) Active confirmed Problem Pain in limb (74341135) Pain in Limb (729.5) Active confirmed Plan Of Treatment Pending Test Test Name Order Date X ray : Foot, right 3V 07/29/2014 42566-Vopa Destruction, 1-14 06/26/2012 09579-Bhpc Destruction, 1-14 08/12/2012 78331, M7577-BGRLY/INJECT, JOINT/BURSA 1 09/29/2013 91203, J0702- Neuroma/Injection 12/04/20 14 57976, J0702- Neuroma/Injection 06/26/20 12 Insurance Providers Payer Name Payer Address Payer Phone Subscriber Number Group Number Insured Name Patient Relationship to Insured Coverage Start Date Coverage End Date [facility] [address] [place] [address] [id number] Mer[facility] Brush Self - patient is the insured Medical (General) History Medical History History ICD Code mumps measles chicken pox Surgical History Surgery Date(Month/Year) foot surgery
== END 2025-07-05 07:38 | disposition home or self-care (01) ==
LOC: HO.MAMMO 07:37
PROVIDERS: PCP Physician Assistant; Visit Provider Internal Medicine
DX: Z12.31 Encounter for screening mammogram for malignant neoplasm of breast (principal)
CPT/HCPCS: 77063; 77067

== ENCOUNTER 2025-07-05 07:58 | Outpatient (REF) | payer MEDICARE, SELFPAY ==
[2025-07-05 10:44] LABS: MANUAL DIFF FLAG NO
[2025-07-05 10:51] LABS: White Blood Count 6.6 X10*3/uL (4.8-10.8)
[2025-07-05 10:52] LABS: Hematocrit 42.4 % (37.0-47.0); Hemoglobin 13.7 g/dl (12.0-16.0); Imm Gran Abs Auto 0.02 X10*3/uL (0.00-0.03); Imm Gran Pct Auto 0.3 % (0.0-0.4); Lymphocytes Absolute Auto 2.0 X10*3/uL (1.2-4.9); Mean Corpuscular HGB Conc 32.3 g/dl (31.0-35.0); Mean Corpuscular Hemoglobin 30.4 pg (27.0-33.0); Mean Corpuscular Volume 94.2 fL (80.0-98.0); NRBC Abs Auto 0.000 X10*3/uL (0.0-0.012); NRBC Pct Auto 0.0 /100WBC (0.0-0.2); Platelet Count 290 X10*3/uL (160-400); Red Blood Count 4.50 X10*6/uL (4.20-5.50)
[2025-07-05 11:22] LABS: Alanine Aminotransferase 28 U/L (0-31); Albumin Level 4.5 g/dL (3.5-5.0); Alkaline Phosphatase 79 U/L (39-117); Anion Gap 14 (12-20); Aspartate Amino Transferase 30 U/L (5-31); Blood Urea Nitrogen 16 mg/dL (9-16); Calcium 9.7 mg/dL (8.4-10.2); Carbon Dioxide 22 mmol/L (22-29); Chloride 108 mmol/L (96-108); Cholesterol 220 mg/dL (<200); Estimated Glomerular Filt Rate 54; HDL Cholesterol 54 mg/dL (>40); Potassium 4.2 mmol/L (3.3-5.1); Sodium 140 mmol/L (135-145); Total Protein 8.0 g/dL (6.5-8.0); Triglycerides 158 mg/dL (<150)
[2025-07-05 11:45] LABS: Folate 15.7 ng/mL (> or = 4.0); Vitamin B12 555 pg/mL (200-900)
[2025-07-11 13:23] LABS: Vitamin D 25-OH, D2 <4 ng/mL; Vitamin D 25-OH, D3 58 ng/mL; Vitamin D 25-OH, Total 58 ng/mL (30-100)
== END 2025-07-05 07:59 | disposition home or self-care (01) ==
LOC: HO.10HDL 07:58
PROVIDERS: Visit Provider Internal Medicine
DX: I10 Essential (primary) hypertension (principal); I48.0 Paroxysmal atrial fibrillation; Z13.228 Encounter for screening for other metabolic disorders; Z86.59 Personal history of other mental and behavioral disorders; Z13.0 Encounter for screening for diseases of the blood and blood-forming organs and certain disorders involving the immune mechanism; Z13.21 Encounter for screening for nutritional disorder; Z12.31 Encounter for screening mammogram for malignant neoplasm of breast
CPT/HCPCS: 36415; 77063; 77067; 80053; 80061; 82306; 82607; 82746; 84443; 85025

== ENCOUNTER → 2025-07-05 08:00 | Outpatient (BNV) | payer MEDICARE, SELFPAY | PROVIDERS: PCP Physician Assistant; Visit Provider Internal Medicine | DX: Z12.31 Encounter for screening mammogram for malignant neoplasm of breast (principal) | CPT/HCPCS: 77063; 77067 ==

== ENCOUNTER 2025-07-12 08:38 | Outpatient (AMB) | payer BC, SELFPAY ==
[2025-07-12 08:43] VITALS: BP 110/72; PULSE 58; BMI 26.6
--- NOTE | 2025-07-12 08:43 | A.OFFVIS_ITS ---
Vital Signs 07/12/25 08:43 Height 5 ft 10 in Weight 185 lb 3.013 oz BMI 26.6 BP 110/72 Blood Pressure Location Lt brachial Position Sitting Pulse 58 Intake Visit Reasons: 1 yr f/up Intake Note: 1 year follow-up with ekg feeling good Financial Institution Vice President Required: No Allergies No Known Allergies Allergy (Verified 01/22/25 13:29) Medication List - Last Reconciled 07/12/25 by Mehdi Hirsch MD aspirin 81 mg PO DAILY atorvastatin 20 mg PO BEDTIME cholecalciferol (vitamin D3) (Vitamin D3) 50 mcg PO DAILY metoprolol succinate ER 25 mg PO BEDTIME metoprolol succinate ER 50 mg PO DAILY multivitamin 1 tab PO DAILY HPI Comments Details: Mercy comes for follow-up. She has been doing very well. Since she retired she feels that she has a lot of less stress and she feels better. She walks and has no exertional symptoms of chest pain or shortness of breath. Has any prolonged palpitation irregular heartbeat. Takes all her medications. Her last LDL was not well optimized at 133 mg/dL. She has been taking all her medications religiously. [facility] Medical History (Updated 06/08/25 @ 14:53 by KWADWO Valladares) Acute sinusitis Paroxysmal atrial fibrillation Atrial fibrillation with rapid ventricular response HTN (hypertension) Surgical History No pertinent past surgical history Family History (Updated 06/08/25 @ 14:05 by Mercy Pearce [place]) Mother Heart disease Mother Diabetes CHF (congestive heart failure) H/O heart surgery Father HTN (hypertension) Social History Housing: House Alcohol intake: current Alcohol intake frequency: a few times a week Patient Tobacco Use Status: Never used Tobacco e-Cigarette/Vaping Use: Never Used Advance Directives Date on File: 07/27/21 service: No Current occupational status: retired Cognitive needs: No Hearing needs: No Vision needs: Yes (rx glasses) Review of Systems Const Denies chills, Denies fatigue, Denies fever(s), Denies frequent falls, Denies weakness, Denies weight gain and Denies weight loss ENT Denies dizziness Card Denies chest pain, Denies leg edema, Denies lightheadedness, Denies palpitations, Denies dyspnea, Denies dyspnea on exertion, Denies orthopnea and Denies other (loss of consciousness) Resp Denies cough, Denies dyspnea and Denies dyspnea on exertion GI Denies hematochezia and Denies change in stool character Musc Denies abnormal gait, Denies muscle weakness, Denies numbness, Denies radiating pain into limb and Denies tingling Neuro Denies abnormal gait, Denies dizziness, Denies frequent falls, Denies numbness, Denies tingling and Denies weakness Endo Denies fatigue and Denies palpitations Physical Exam Vital Signs: Last Vital Signs Pulse 58 07/12/25 08:43 BP 110/72 07/12/25 08:43 BMI result Body Mass Index 26.6 Const General: cooperative, comfortable, no acute distress, alert, awake, anxious and well groomed Nutritional Appearance: average body habitus Orientation/consciousness: patient oriented x3 Limitations: no limitations Neck Neck: Yes trachea midline, Yes supple and Yes no JVD Resp Effort & Inspection: normal respiratory effort Auscultation: clear to auscultation bilaterally Cardio Jugular venous distension: no JVD Palpation: normal PMI Rate: regular rate Rhythm: regular rhythm Heart sounds: S1 normal heart sound present, S2 normal heart sound present, no click, no gallops, no murmurs and no rubs GI Auscultation: normal bowel sounds Skin General skin exam: no rashes or lesions noted Neuro General: patient oriented x3 and no focal motor deficits Extrem General: Yes no clubbing, cyanosis or edema Office Procedures EKG Details: EKG shows sinus bradycardia otherwise normal EKGs 77509-Gjmmfvidhjfncdjuk, Complete Assessment & Plan Assessment & Plan (1) Paroxysmal atrial fibrillation: Code(s): I48.0 - Paroxysmal atrial fibrillation Category: Medical Plan: Paroxysmal atrial fibrillation this elderly woman has remained controlled and now with her improved life situation with less stress she has even less likelihood of having recurrence. Continued aggressive risk factor modification control blood pressure is advised. Stress mitigation strategies to be discussed. Avoid stimulants. Patient is recommended oral anticoagulation therapy but has deferred in the past. Currently on aspirin therapy which is not an adequate thromboembolic prophylaxis. (2) HTN (hypertension): Code(s): I10 - Essential (primary) hypertension Category: Medical Qualifiers: Hypertension type: primary hypertension Qualified Code(s): I10 - Essential (primary) hypertension Plan: Hypertension which is currently well optimized on current medications. Importance of good blood pressure control was discussed encouraged to maintain activity level as tolerated. Her LDL is not well optimized for her risk factors and recommend her to pursue more aggressive lifestyle modification and exercise and follow-up lipid panel in 6 months time. Will follow-up after that and further uptitrate medications as need be. Will follow up in the clinic in 1 year's time, sooner PRN. Thank you for allowing me to partake in her care Orders: Orders Lipid Panel 6 Months I10 - Essential (primary) hypertension Coding Level of Care Code Est Pt Level 4 (31725) Complex EM visit Add On G2211 Diagnoses Paroxysmal atrial fibrillation I48.0 Primary hypertension I10 Hypertension type: primary hypertension CPT Codes EKG - CPT: 99938-Ojznjlktznknnwkra, Complete ([id number])
== END 2025-07-12 09:03 | disposition home or self-care (01) ==
PROVIDERS: PCP Physician Assistant; Visit Provider Internal Medicine Cardiovascular Disease
DX: I48.0 Paroxysmal atrial fibrillation (principal); I10 Essential (primary) hypertension
CPT/HCPCS: 93010; 99214

== ENCOUNTER → 2025-07-12 08:38 | Outpatient (BNVA) | payer BC, SELFPAY | PROVIDERS: PCP Internal Medicine; Visit Provider Internal Medicine Cardiovascular Disease | DX: I10 Essential (primary) hypertension (principal); I48.0 Paroxysmal atrial fibrillation | CPT/HCPCS: 93005 ==

== ENCOUNTER 2025-07-30 09:55 | Outpatient (AMB) | payer MEDICARE, SELFPAY ==
--- NOTE | 2025-07-30 10:09 | MHC.PC.OV ---
Intake Visit Reasons: AWV Annual wellness visit Allergies No Known Allergies Allergy (Verified 01/22/25 13:29) Tobacco use date assessed: 06/08/25 Dental Screening Dental Screen Date: 06/08/25 [facility] Medical History (Updated 06/08/25 @ 14:53 by KWADWO Valladares) Acute sinusitis Paroxysmal atrial fibrillation Atrial fibrillation with rapid ventricular response HTN (hypertension) Surgical History No pertinent past surgical history Family History (Updated 06/08/25 @ 14:05 by Mercy Pearce [place]) Mother Heart disease Mother Diabetes CHF (congestive heart failure) H/O heart surgery Father HTN (hypertension) Social History Housing: House Alcohol intake: current Alcohol intake frequency: a few times a week Patient Tobacco Use Status: Never used Tobacco e-Cigarette/Vaping Use: Never Used Advance Directives Date on File: 07/27/21 service: No Current occupational status: retired Cognitive needs: No Hearing needs: No Vision needs: Yes (rx glasses) Questionnaire Thrive Questionnaire Date Thrive assessed: 06/08/25 LUCIANA-7 AMB Questionnaire LUCIANA-7 Date LUCIANA - 7 assessed: 06/08/25 Source: Developed by Drs. Francis Morgan, Vicenta Garza, Dilshad Martinez and colleagues, with an educational jonathan from [employer]. Physical exam (Primary Care) Tobacco/Smoking Status: Tobacco use Status Tobacco use date assessed 06/08/25 06/07/25 13:29 Patient Tobacco Use Status Never used Tobacco 06/07/25 13:29 e-Cigarette/Vaping Use Never Used 06/07/25 13:29 Thrive Assessment: Date of Thrive Assessment Date Thrive assessed 06/08/25 06/07/25 13:29 Coding
--- NOTE | 2025-07-30 10:11 | A.OFFVIS_ITS ---
Intake Vital Signs 07/30/25 10:13 Height 5 ft 9.5 in Weight 83.461 kg BMI 26.8 BP 150/90 H Blood Pressure Location Rt brachial Position Sitting Respiration 16 Pulse 76 Pulse Source Pulse Oximeter Temp 97.1 F Temp Source Temporal Artery Scan Pulse Oximetry (%) 97 Oxygen Delivery Method Room Air Intake Visit Reasons: AWV Annual wellness visit System Support Developer Required: No Allergies No Known Allergies Allergy (Verified 07/30/25 10:10) Medication List - Last Reconciled 07/30/25 by KWADWO Herring aspirin 81 mg PO DAILY atorvastatin 20 mg PO BEDTIME cholecalciferol (vitamin D3) (Vitamin D3) 50 mcg PO DAILY fluocinonide 0.05% topical DAILY PRN metoprolol succinate ER 25 mg PO BEDTIME metoprolol succinate ER 50 mg PO DAILY multivitamin 1 tab PO DAILY piroxicam (Feldene) 10 mg PO DAILY Fall Risk Assessment Fall risk assessment: No Falls in past year Date Fall Risk Assessed: 07/30/25 HPI HPI Comments History of Present Illness Details 65 year old female with history of hld, depression, htn, atrial fibrillation, presenting for management of chronic conditions and for annual wellness visit. 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 Safe at home. Social alcohol. No history of cigarettes. No illicit drugs or marijuana. Overall healthy diet. Brisk walks several miles daily Chronic conditions: HTN- BP elevated 150/90, recheck 136/72. On toprol 50mg daily and 25mg bedtime Paroxysmal afib- rate controlled, on toprol. On asa, no ac. HLD- atorvastatin Depression- stable off fluoxetine Concerns: None Health Maintenance: Last colonoscopy 05/2019- 10 year follow up Last mammo 07/20, no evidence of malignancy Last dexa 11/2017, normal Shingrix 2020 TDaP 2021 Flu 05/13/25 Covid 05/13/2025 Pneumonia 12/18 ROS: General: No fevers, malaise, unintentional weight loss HEENT: No blurred vision, diplopia. No sore throat, nasal congestion, rhinorrhea, sinus pain, ear pain. No hearing loss Neck - no adenopathy Cardiovascular: No chest pain, palpitations, or leg edema Respiratory: No shortness of breath, wheezing, cough Breast: No pain, palpable lumps, nipple inversion GI: No dysphagia, odynophagia, globus sensation. No abdominal pain, nausea, vomiting, diarrhea, constipation, melena, hematochezia : No dysuria, hematuria, increased urinary frequency, decreased urinary output. FAMILY PRACTICE DOCTOR: No abn vaginal bleeding or discharge MSK: No myalgia, back pain, arthralgias Neuro: No headaches, weakness, paresthesias Psych: no depression/anxiery. No AH/VH. No SI/HI Skin: No rashes or lesions EXAM: Constitutional - Awake and Alert, No apparent distress Eyes - PERRLA, EOMI. Anicteric Ears - external ears normal, canals clear, TMs intact and pearly rodrigues with good cone of light Nose- septum midline, nares clear, no sinus tenderness Mouth/throat- mucosa moist, tongue and uvula midline, no erythema/edema or tonsillar adenopathy. Neck-trachea midline, thyroid symmetric without palpable nodules, no adenopathy Cardiovascular - S1S2, RRR, No edema Respiratory - Normal lung expansion, Normal respiratory effort, No respiratory distress, CTA bilaterally Gastrointestinal - NT / ND; +BS; No rebound or guarding - No CVA tenderness Extremities - no calf tenderness bilaterally, no swelling Musculoskeletal - Normal inspection, normal ROM Skin - Warm/Dry, no concerning lesions Neurological - Alert & oriented x3, CN II-XII in tact, 5/5 strength BUE and BLE, 2+ patellar reflexes, sensation intact Psychological - Appropriate affect PFSH Medical History HLD (hyperlipidemia) Acute sinusitis Paroxysmal atrial fibrillation Atrial fibrillation with rapid ventricular response HTN (hypertension) Surgical History No pertinent past surgical history Family History Mother Heart disease Mother Diabetes CHF (congestive heart failure) H/O heart surgery Father HTN (hypertension) Social History Housing: House Alcohol intake: current Alcohol intake frequency: a few times a week Patient Tobacco Use Status: Never used Tobacco e-Cigarette/Vaping Use: Never Used Advance Directives Date on File: 07/27/21 service: No Current occupational status: retired Cognitive needs: No Hearing needs: No Vision needs: Yes (rx glasses) Questionnaire Medicare Wellness Checkup [age] 65-68 What gender do you identify with?: female During the past 4 weeks, how much have you been bothered by emotional problems such as feeling anxious, depressed, irritable, sad or downhearted, and blue?: not at all During the past 4 weeks, has your physical & emotional health limited your social activities with family, friends, neighbors, or groups?: not at all During the past 4 weeks, how much bodily pain have you generally had?: very mild pain During the past 4 weeks, was someone available to help you if you needed & wanted help?: yes, as much as I wanted During the past 4 weeks, what was the hardest physical activity you could do for at least 2 minutes?: heavy Can you get to places out of walking distance without help? (For eg., can you travel alone on buses, taxis or drive your car?): Yes Can you go shopping for groceries or clothes without someone's help?: Yes Can you prepare your own meals?: Yes Can you do your housework without help?: Yes Because of any health problems, do you need the help of another person with your personal care needs such as eating, bathing, dressing or getting around the house?: Yes Can you handle your own money without help?: Yes During the past 4 weeks, how would you rate your health in general?: excellent During the past 4 weeks how have things been going for you?: very well; could hardly better Are you having difficulties driving your car?: no Do you always fasten your seat belt when you are in a car?: yes, usually During past 4 weeks, have you been bothered by the following: never: Falling or dizzy when standing up, Sexual problems?, Trouble eating well?, Teeth or denture problems?, Problems using the telephone? and Tiredness or fatigue? Have you fallen 2 or more times in the past year?: No Are you afraid of falling?: No Are you a smoker?: no During the past 4 weeks, how many drinks of wine, beer, or other alcoholic beverages did you have?: 1 drink or less per week Do you exercise for about 20 minutes 3 or more times a week?: yes, all the time Have you been given information to help with the following?: no: Hazards in your house that might hurt you? and no: Keeping track of your medications? How often do you have trouble taking medicines the way you have been told to take them?: I always take medicine as prescribed How confident are you that you can control & manage most of your health problems?: very confident What is your race?: White Mini Mental State Exam (MMSE) Orientation What is the (year) (season) (date) (day) (month)?: year, season, date, day and month Where are we (state) (county) (town or city) (hospital) (floor)?: state, county, town or city, hospital/clinic and floor Attention & Calculation (CHOOSE ONE) Ask pt to begin with 100 & count backward by 7. Stop after 5 repeats. If pt cannot ask them to spell the word WORLD backward.: 93, 86, 79, 72 and 65 Spell WORLD backwards (DLROW): 5 letters Recall Ask patient to repeat the 3 items from question #3.: object 3 Language Show patient a wristwatch & ask what it is. Repeat for pencil.: watch and pencil Ask the patient to repeat the phrase 'No ifs, ands, or buts' after you.: correct Ask the patient to 'take a piece of paper with their right hand' 'fold paper in half' 'place paper on floor': take paper in right hand, fold paper in half and place paper on floor Print the sentence 'CLOSE YOUR EYES' on a piece. If patient actually closes eyes then score.: followed written direction Give patient a blank piece of paper & ask to write a sentence. Score if it co ntains a noun & verb.: sentence contains subject and verb Ask patient to copy figure of intersecting pentagons exactly. Score if all 10 angles & 2 intersects are included.: all 10 angles present & 2 are intersected Score Score: 30 Activity of Daily Living Bathing - sponge bath, tub bath or shower: receives no assistance (gets in/out by self, if usual bathing means Dressing - getting clothes from closets & drawers, including inner/outer garments & fasteners.: gets clothes & gets completely dressed without help Toileting - going to the 'toilet room' for urine/bowel elimination & cleaning self/arranging clothes: goes to toilet room, cleans self, arranges clothes without help Transfer: moves in & out of bed and chair without help (may use support object) Continence: controls urination/bowel movements completely by self Feeding: feeds self without help Total Score: 0 Information obtained from: patient Using telephone: independent Traveling: independent Shopping: independent Preparing meals: independent Housework: independent Taking medicine: independent Managing money: independent PHQ-9 Over the last 2 weeks, how often have you been bothered by any of the following problems? 1. Little interest or pleasure in doing things: not at all 2. Feeling down, depressed, or hopeless: not at all 3. Trouble falling or staying asleep, or sleeping too much: not at all 4. Feeling tired or having little energy: not at all 5. Poor appetite or overeating: not at all 6. Feeling bad about yourself - or that you are a failure or have let yourself or your family down: not at all 7. Trouble concentrating on things, such as reading the newspaper or watching television: not at all 8. Moving or speaking so slowly that other people could have noticed. Or the opposite - being so fidgety or restless that you have been moving around a lot more than usual: not at all 9. Thoughts that you would be better off or of hurting yourself in some way: not at all Total score: 0 Depression Screening Interpretation: Negative Depression Screening Done: Yes 07238 - PHQ-9 Billing: Yes Source: Developed by Drs. Francis Morgan, Vicenta Garza, Dilshad Martinez and colleagues, with an educational jonathan from [employer]. Thrive Questionnaire Date Thrive assessed: 06/08/25 LUCIANA-7 AMB Questionnaire LUCIANA-7 Date LUCIANA - 7 assessed: 06/08/25 Feeling nervous, anxious, or on edge: 0 = Not at all Not being able to stop or control worryin = Not at all Worrying too much about different things: 0 = Not at all Trouble relaxin = Not at all Being so restless that it is hard to sit still: 0 = Not at all Becoming easily annoyed or irritable: 0 = Not at all Feeling afraid as if something awful might happen: 0 = Not at all Total LUCIANA-7 score (0-4 normal; 5-9 mild; 10-14 moderate; 15-21 severe): 0 Source: Developed by Drs. Francis Morgan, Vicenta Garza, Dilshad Martinez and colleagues, with an educational jonathan from [employer]. LUCIANA-7 Assessment Billing LUCIANA-7 Assessment Tool: LUCIANA-7 Assessment 34286 AUDIT C Alcohol Use Questionnaire (AUDIT-C) 1. How often do you have a drink containing alcohol?: 2-3 times a week 2. How many drinks containing alcohol do you have on a typical day when you are drinking?: 1 or 2 Total Score: 3 Physical Exam Vital Signs: Last Vital Signs Temp 97.1 F 07/30/25 10:13 Pulse 76 07/30/25 10:13 Resp 16 07/30/25 10:13 BP 150/90 H 07/30/25 10:13 Pulse Ox 97 07/30/25 10:13 Oxygen Delivery Method Room Air 07/30/25 10:13 BMI result Body Mass Index 26.8 Assessment & Plan Assessment & Plan (1) Encounter for Medicare annual wellness exam: Code(s): Z00.00 - Encounter for general adult medical examination without abnormal findings Plan: Reviewed medical, surgical, family, and social history Reconciled medication list Reviewed functional status, cognitive function, fall risk, mood, vision/hearing, and safety screening- no concerns Risk factors identified: none Advance care planning discussion completed (2) HTN (hypertension): Code(s): I10 - Essential (primary) hypertension Qualifiers: Hypertension type: primary hypertension Qualified Code(s): I10 - Essential (primary) hypertension Plan: Controlled. Continue toprol (3) Paroxysmal atrial fibrillation: Code(s): I48.0 - Paroxysmal atrial fibrillation Plan: Rate controlled. Continue baby asa and toprol (4) HLD (hyperlipidemia): Code(s): E78.5 - Hyperlipidemia, unspecified Plan: Continue atorvastatin Plan FOllow up in 6 months. Labs to be completed prior to visit Orders: Orders Liver Panel 6 Months E78.5 - Hyperlipidemia, unspecified, I10 - Essential (primary) hypertension, I48.0 - Paroxysmal atrial fibrillation Basic Metabolic Panel 6 Months E78.5 - Hyperlipidemia, unspecified, I10 - Essential (primary) hypertension, I48.0 - Paroxysmal atrial fibrillation Quality Reporting (2019) Fall Risk Screening ([facility] 139) Last assessed Fall Risk: 07/30/25 Fall risk assessment: No Falls in past year Depression/Bipolar (159/160/161/177) PHQ-9: Total score: 0 Coding Level of Care Code Medicare First (G0438) Est Pt Level 4 (32255) Diagnoses Encounter for Medicare annual wellness exam Z00.00 Primary hypertension I10 Hypertension type: primary hypertension Paroxysmal atrial fibrillation I48.0 HLD (hyperlipidemia) E78.5 Additional Codes LUCIANA-7 Assessment Billing - LUCIANA-7 Assessment Tool: LUCIANA-7 Assessment 80376 ([id number]) PHQ-9 - 71106 - PHQ-9 Billing: Yes ([id number]) Comment [id number]
[2025-07-30 10:13] VITALS: BP 150/90; PULSE 76; RESP 16; TEMP 36.2; O2SAT 97; BMI 26.8
== END 2025-07-30 11:06 | disposition home or self-care (01) ==
PROVIDERS: PCP Physician Assistant; Visit Provider Physician Assistant
DX: Z00.00 Encounter for general adult medical examination without abnormal findings (principal); I10 Essential (primary) hypertension; I48.0 Paroxysmal atrial fibrillation; E78.5 Hyperlipidemia, unspecified

== ENCOUNTER → 2025-07-30 09:55 | Outpatient (BNVA) | payer MEDICARE, SELFPAY | PROVIDERS: PCP Internal Medicine; Visit Provider Physician Assistant | DX: Z00.00 Encounter for general adult medical examination without abnormal findings (principal); I48.0 Paroxysmal atrial fibrillation; I10 Essential (primary) hypertension; E78.5 Hyperlipidemia, unspecified; Z79.899 Other long term (current) drug therapy | CPT/HCPCS: 96127 ==

== ENCOUNTER 2025-08-05 09:12 | Outpatient (REF) | payer MEDICARE, SELFPAY ==
[2025-08-06 10:13] LABS: Bacterial Vaginosis PCR POSITIVE (Negative); Candida Group PCR NOT DETECTED (Not Detect); Candida glab krusei PCR NOT DETECTED (Not Detect); Trichomonas vaginalis PCR NOT DETECTED (Not Detect)
== END 2025-08-05 09:13 | disposition home or self-care (01) ==
LOC: HO.LNP 09:12
PROVIDERS: PCP Internal Medicine; Visit Provider Advanced Practice Midwife
DX: Z01.419 Encounter for gynecological examination (general) (routine) without abnormal findings (principal); N95.2 Postmenopausal atrophic vaginitis; N76.0 Acute vaginitis
CPT/HCPCS: 81515; 87626; 88175

== ENCOUNTER 2025-08-05 09:12 | Outpatient (AMB) | payer MEDICARE, SELFPAY ==
--- NOTE | 2025-08-05 09:15 | MHC.OFFVIS ---
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 Required: No Allergies No Known Allergies Allergy (Verified 08/05/25 09:24) Medication List - Last Reconciled 08/05/25 by Supriya Caro LPN aspirin 81 mg PO DAILY atorvastatin 20 mg PO BEDTIME cholecalciferol (vitamin D3) (Vitamin D3) 50 mcg PO DAILY fluocinonide 0.05% topical DAILY PRN metoprolol succinate ER 25 mg PO BEDTIME metoprolol succinate ER 50 mg PO DAILY multivitamin 1 tab PO DAILY piroxicam (Feldene) 10 mg PO DAILY Is last menstrual period known: No Post menopausal: Yes Do you need a note to return to daycare/school/sports/work: No HPI Comments Details: Patient is a postmenopausal woman 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 Financial Accountant concerns: she requests a pap smear today, had HPV years ago. Admits to occasional external irritation, uses topical corticosteroids. Currently not sexually active since 2018 due to vaginal pain and bleeding. Attempting to eat a healthy diet with calcium and vitamin D and stays active with exercise-walks. Last pap smear; 2020, negative. Last mammogram; 2024. Colonoscopy is UTD. [facility] Medical History HLD (hyperlipidemia) Acute sinusitis Paroxysmal atrial fibrillation Atrial fibrillation with rapid ventricular response HTN (hypertension) Surgical History History of colonoscopy No pertinent past surgical history Family History Mother Heart disease Mother Diabetes CHF (congestive heart failure) H/O heart surgery Father HTN (hypertension) Social History Housing: House Alcohol intake: current Alcohol intake frequency: a few times a week Patient Tobacco Use Status: Never used Tobacco e-Cigarette/Vaping Use: Never Used Advance Directives Date on File: 07/27/21 service: No Current occupational status: retired Cognitive needs: No Hearing needs: No Vision needs: Yes (rx glasses) Female Reproductive History Menstrual Age of Menarche: 12 control method: none Age of menopause: 56 Total pregnancies: 0 Date of last pap smear: 05/18/21 History of abnormal pap smear: Yes History of STI: Yes (had bx 15 yrs ago) Date of Mammogram: 07/06/25 History of abnormal mammogram: Yes (Had biopsy, 15 yrs ago) Review of Systems Const All systems reviewed & are unremarkable except as noted in HPI and below Reports as per HPI Eyes Reports no additional complaints ENT Reports no additional complaints Card Reports no additional complaints Resp Reports no additional complaints GI Reports as per HPI and Reports no additional complaints Reports as per HPI Musc Reports no additional complaints Skin/Breast Reports as per HPI Neuro Reports no additional complaints Psych Reports no additional complaints Endo Reports no additional complaints Oscar/Lymph Reports no additional complaints Aller/Immun Reports no additional complaints Physical Exam Vital Signs: Last Vital Signs BP 150/90 H 08/05/25 09:18 BMI result Body Mass Index 26.5 Const General: cooperative, healthy appearing, no acute distress, well developed and alert Orientation/consciousness: patient oriented x3 HEENT Head: Yes normal to inspection Eyes General: appearance normal, both eyes and all related structures Neck Neck: Yes normal visual inspection Thyroid: Thyroid normal Chest Chest palpation & inspection: normal inspection of the chest and other (no puckering, dimpling, peau de orange, retraction, discharge, masses) Breast/axilla inspection: normal inspection of the breasts Breast/axilla palpation: normal palpation of the breasts Resp Effort & Inspection: normal respiratory effort GI Inspection: Yes normal to inspection Palpation (GI): Soft to palpation Rectal Exam - Female: deferred General: Yes bladder normal to palpation External Female Exam: normal external appearance, normal appearance of the urethra and erythema (Mild bilateral labia) Speculum Exam - Vagina: normal palpation, normal vaginal discharge (increased, white) and vagina atrophic Speculum Exam - Cervix: normal palpation and Other cervical findings present (Bled slightly with Pap) Bimanual exam- vagina & uterus: normal bimanual exam, normal palpation, uterine size normal, bladder normal to palpation, normal palpation and non-tender Bimanual Exam- Adnexa, other: no masses Skin General skin exam: no rashes or lesions noted Rashes: no rashes Neuro General: patient oriented x3 Cognition (Neuro): normal cognition Extrem General: Yes normal to inspection Psych Attitude: cooperative Thought process: Normal thought process present Assessment & Plan Assessment & Plan (1) Encounter for well woman exam with routine gynecological exam: Code(s): Z01.419 - Encounter for gynecological examination (general) (routine) without abnormal findings Category: Medical Plan: Discussed: Current recommendations for pap smears per ASCCP guidelines. Pap obtained today. Breast awareness, periodic self breast exams and yearly mammogram. Maintain a healthy lifestyle, well balanced diet including Calcium 1,200 mg and Vitamin D 600 IU daily, and routine exercise. Contact the office with any postmenopausal bleeding. Patient verbalizes understanding and agrees to the plan of care. She was given opportunity to ask questions and all questions were answered to the best of my ability. RTO in 1 year for annual program support assistant exam. This note is constructed using voice recognition software. While every effort has been made to ensure accuracy, blow pit operator errors may have been included. (2) Vaginal atrophy: Code(s): N95.2 - Postmenopausal atrophic vaginitis Plan Discuss: Self-help measures for vaginal atrophy to include Replens, vulvar balm and website information provided. Benefits of topical estrogen. Avoid overuse of topical corticosteroids. Follow up p.r.n.. The patient expressed understanding and agreement with the plan of care. All of her questions and concerns were addressed to the best of my ability. Orders: Orders Bacterial Vaginosis Panel Today N76.0 - Acute vaginitis Pap Smear Today Z12.4 - Encounter for screening for malignant neoplasm of cervix HPV High risk Today Z12.4 - Encounter for screening for malignant neoplasm of cervix Coding Level of Care Code New Pt Prev Care >65yr (70105) Diagnoses Encounter for well woman exam with routine gynecological exam Z01.419 Vaginal atrophy N95.2
[2025-08-05 09:18] VITALS: BP 150/90; BMI 26.5
== END 2025-08-05 10:09 | disposition home or self-care (01) ==
LOC: HO.HWS 09:12
PROVIDERS: PCP Internal Medicine; Visit Provider Advanced Practice Midwife
DX: Z01.419 Encounter for gynecological examination (general) (routine) without abnormal findings (principal); N95.2 Postmenopausal atrophic vaginitis
CPT/HCPCS: 99387; 99459